=== PATIENT | male | born 1965 | race Caucasian/White ===

== ENCOUNTER → 2017-12-30 13:45 | Outpatient (REF) | payer SELFPAY | LOC: OM 13:45 | PROVIDERS: PCP Family Medicine; Visit Provider Nurse Practitioner Family | DX: Z02.79 Encounter for issue of other medical certificate (principal) ==

== ENCOUNTER → 2017-12-31 08:30 | Outpatient (CLI) | payer BC, SELFPAY ==
[2017-12-31 09:04] LABS: Absolute Basophil Count 0.02 k/cumm (0.0-0.2); Absolute Eosinophil Count 0.46 k/cumm (0.0-0.7); Absolute Lymphocyte Count 1.47 k/cumm (1.2-3.4); Absolute Monocyte Count 0.38 k/cumm (0.11-0.7); Absolute Neutrophil Count 2.79 k/cumm (1.2-6.7); Basophils % 0.4; HCT 40.7 % (40.0-50.0); HGB 14.1 g/dL (13.5-17.5); Lymphocytes % 28.7; Mean Corp. HGB Concentration 34.6 g/dL (32.0-36.0); Mean Corpuscular Hemoglobin 30.9 pg (27.0-33.0); Mean Corpuscular Volume 89.1 fL (80-95); Mean Platelet Volume 10.7 fL (8.0-11.0); Monocytes % 7.4; Neutrophils % 54.5; Platelet Count 191 x1000/uL (130-400); RBC 4.57 m/cumm (4.50-6.00); RBC Distribution Width 12.5 % (11.8-14.1); White Blood Cell Count 5.12 k/cumm (4.4-10.8)
[2017-12-31 09:55] LABS: ESR 15 MM/HR (1-20)
[2017-12-31 10:00] LABS: ALT 33 U/L (12-78); AST 23 U/L (15-37); Albumin 4.5 g/dL (3.4-5.0); Alkaline Phosphatase 66 U/L (46-116); Anion Gap 8.7 mmol/L (3-11); BUN 15 mg/dL (7-18); Bilirubin, Total 1.6 mg/dL (0.2-1.0); C-Reactive Protein 0.15 mg/dL (0.0-0.3); CO2 27.3 mmol/L (21.0-32.0); Calcium 9.3 mg/dL (8.5-10.1); Chloride 102 mmol/L (98-107); Glucose 99 mg/dL (70-100); Potassium 3.8 mmol/L (3.5-5.1); Sodium 138 mmol/L (136-145); Total Protein 7.5 g/dL (6.4-8.2)
== END ==
PROVIDERS: PCP Family Medicine; Visit Provider Surgery
DX: K57.33 Diverticulitis of large intestine without perforation or abscess with bleeding (principal)
CPT/HCPCS: 36415; 80053; 85652; 85025; 86140

== ENCOUNTER → 2018-01-10 03:14 | Outpatient (CLI) | payer BC, SELFPAY ==
--- NOTE | 2018-01-10 14:03 | DI.REPORT_ITS ---
SYMPTOMS/DIAGNOSIS: DIVERTICULITIS OF LARGE INTESTINE WO PERFORATION OR BLEEDING, K57.33, PERSISTENT PAIN ON ORAL ANTIBIOTICS CT OF THE ABDOMEN AND PELVIS: Comparison is made with October,. Images were performed from the lung bases through the ischial tuberosities after IV and oral contrast. Previous exam showed diverticulitis involving the descending colon. Multiple diverticula are again demonstrated. The previously noted inflammation has resolved. There is no evidence of abscess, free air or free fluid. There is no residual wall thickening. There is no abnormal bowel distention. The appendix appears normal. The lung bases are clear. The heart size is normal. The liver, gallbladder, spleen, pancreas, adrenals, kidneys and bladder appear normal. The aorta is normal in diameter. There are degenerative disc changes at L3-4 through L5-S1. IMPRESSION: Resolution of previously noted diverticulitis. No new abnormalities are seen.
[2018-01-10] MEDS: Breeza Beverage 473 ML BTL PO ×2 (14:39→14:40)
[2018-01-10] MEDS: Omnipaque 350 MG/ML 50 ML BTL PO (14:40)
[2018-01-10] MEDS: Omnipaque 350 MG/ML 100 ML BTL IJ (16:07)
== END ==
PROVIDERS: PCP Family Medicine; Visit Provider Surgery
DX: K57.33 Diverticulitis of large intestine without perforation or abscess with bleeding (principal); K57.30 Diverticulosis of large intestine without perforation or abscess without bleeding
CPT/HCPCS: 80053; 85652; 74177; 85025; 86140; J3490; Q9967

== ENCOUNTER 2019-08-05 08:46 | Day surgery (SDC) | payer BC, SELFPAY ==
--- NOTE | 2019-08-05 07:46 | W.PM.ENDDOP ---
Date of service: 08/05/19 Time of Service: : Endoscopy Report DATE OF PROCEDURE: 08/05/19 PRE-OP DIAGNOSIS: Colon Cancer Screening and Melena POST-OP DIAGNOSIS: other (Gastritis, esophagitis, hiatal hernia, colon polyps and diverticulosis) PROCEDURE: 1. EGD with biopsies 2. Colonoscopy with polypectomy SURGEON: Camelia Herrera ANESTHESIA: MAC (General/ ASA 2/Gabrielle Isidro, ZAYDA ) ESTIMATED BLOOD LOSS: 3 PATHOLOGY: other (Duodenal bx, gastric bx, esophagus bx, transverse polyp x2, ascending polyp, descending polyp x2, sigmoid polyp x2) COMPLICATIONS: None DISPOSITION: observation INDICATIONS: Mr. Morgan is a pleasant 54-year-old gentleman who comes to the office today to discuss a screening colonoscopy. He also tells me that about 6 weeks ago he developed abdominal pain with diarrhea. At that time the stools were black. He thought he was having another diverticulitis attack and started a low fiber diet. He also stopped drinking at that time. He was drinking 3 or 4 beers a night and for the last 4 weeks he has drank 1 beer a week. The melena has now resolved as has the diarrhea. He had a normal bowel movement this morning. He denies epigastric pain. He denies any unintentional weight loss. He is never had an upper endoscopy or a colonoscopy PREP: Miralax/Dulcolax PROCEDURE START TIME: : PROCEDURE END TIME: 11:58 FINDINGS: Inflammation of the stomach, esophagus. HIatal hernia 7 small polyps Diverticulosis PROCEDURE DESCRIPTION: After informed consent was obtained the patient was take to the procedure room and placed in a supine position. Monitors were applied and a time out was done. The patients name, date of , procedure type, allergies to medications and metal in their body was reviewed. A bite block was placed and the patient was sedated. Once sedated and comfortable the gastroscope was advanced through the oropharynx which was grossly normal into the esophagus. The proximal and mid-esophagus were normal. In the distal esophagus there was mild inflammation noted. The scope was advanced into the stomach and through the pylorus into the 3rd portion of the duodenum. The duodenum was noted to have mild inflammation in the 1st portion. Biopsies were done in the small bowel. The scope was retracted back into the stomach. Moderate inflammation was noted. Biopsies were done to rule out H. pylori. There were no ulcers. The scope was retro-flexed. The cardia and fundus were noted to be normal. There was a small hiatal hernia noted. The scope was retracted back into the esophagus and biopsies were done of the GE junction to rule out Garcia's. The Z line was irregular in 2 areas. The GE junction was at 42 cm. While the patient was still sedated they were placed in a left decubitous position. A rectal exam was done. External exam was normal. Internal exam revealed a normal sphincter tone and no palpable masses. The prostate felt normal. The scope was then introduced and retro-flexed. No internal hemorrhoids were identified. The scope was then advanced to the cecum without difficulty. The ileocecal valve and appendiceal orifice were identified. The prep was good. The scope was then slowly retracted over >6 minutes back into the rectum. Biopsies were done with cold forceps in the Ascending colon x1, transverse colon x2, descedning colon x2, and sigmoid colon x2. There was moderate diverticulosis noted in the descending and sigmoid colon. The scope was removed and the patient was woken up and taken back to Same day surgery in stable condition. Fotos were taken throughout the upper and lower endoscopy, unfortunately the pictures from the colonoscopy were lost when the printer stopped working. The patient tolerated the procedure well and there were no immediate complications. Follow up: 3-5 years
--- NOTE | 2019-08-05 07:47 | W.PM.DSUDISC ---
Discharge Plan Disposition Patient Disposition: HOME Condition: Good Discharge Details Reason For Visit: Colon Cancer Screening/ melena Attending Provider: Camelia Herrera Primary Care Provider: Mak Mcghee Home Meds and New Rx's Prescriptions: Continued omeprazole 20 MG capsule,delayed release(DR/EC) 40 mg PO DAILY RF: 0 Discontinued bisacodyl [Dulcolax (bisacodyl)] 5 mg tablet,delayed release (DR/EC) 5 mg PO ONCE Qty: 4 RF: 0 polyethylene glycol 3350 17 gram powder in packet 255 g PO DAILY Qty: 15 RF: 0 Discharge Instructions Instructions: Diet for Stomach Ulcers and Gastritis (GEN), Gastritis (DC), Hiatal Hernia (DC), Colorectal Polyps (DC), Diverticulosis (DC) Additional Instructions: Findings: mild inflammation in the small bowel, stomach and esophagus Small Hiatal hernia Multiple polyps Diverticulosis Follow up: 3-5 years for the next colonoscopy Please call if you develop: fevers >101.5 Nausea or Vomiting Abdominal pain that is not transient DAY SURGERY UNIT POST ENDOSCOPY INSTRUCTIONS 1. Because there will be medication in your system for the next 24 hours, you may feel a little sleepy. Your coordination will be affected. Therefore: a. Do not drive or operate dangerous equipment for 24 hours. b. Do not drink alcohol beverages for 24 hours (not even beer). c. Plan to go home and rest for the day. 2. Generally there are no restrictions on your activity after a day or so has gone by, but you may feel a bit fatigued for a few days. 3 After you arrive home you may have a light meal and return to a normal diet as you can tolerate it without feeling sick to your stomach. 4. After surgery, you may feel pain or discomfort. This should be only transient, but if it persists please contact your doctor. 5. If there are any questions regarding the findings of your procedure, please feel free to contact your doctor. 6. If you are unable to contact your doctor with a problem, contact the hospital at [phone]. 7. Continue all your regular medications unless directed otherwise. I understand the above instructions and have no questions. Signature of Patient or Responsible Adult Escort Date/Time Name of Responsible Adult Escort Signature of Nurse Date/Time Activity:: Activity as Tolerated Diet:: low acid Discharge Orders Discharge Orders: Discharge Order (Routine); Ordered 08/05/19 Ordered By: Camelia Herrera DS: Diagnosis Discharge Diagnosis (1) Gastritis and duodenitis: Status: Acute (2) Esophagitis: Status: Acute (3) Hiatal hernia: Status: Chronic (4) Diverticulosis: Status: Acute (5) Colorectal polyps: Status: Acute
[2019-08-05 08:59] VITALS: BP 124/74; PULSE 55; RESP 16; TEMP 36.6; O2SAT 95
[2019-08-05] MEDS: Lactated Ringers 1,000 ML 80 ML IV ×2 (09:19→12:03)
--- NOTE | 2019-08-05 11:20 | BOWEL_PTH ---
PATIENT: Kristian Morgan LOC: [facility] U#:[id number] AGE/SX: 54/M ROOM: RE08/05/[address]: Camelia Herrera MD : [id number] BED: DIS: 08/05/2019 SPEC #: [id number] RECD: 08/05/19 12:44 STATUS: OZIEL REQ #: [id number] RAJNI: 08/05/19 11:[address]: Camelia Herrera DEPT: Surgical Specimen RECD BY: Mago He ENTERED: 08/05/19 12:49 SP TYPE: Bowel OTHR DR: Mak Mcghee Tissues: 1 - BIOPSY BOWEL 2 - STOMACH BIOPSY 3 - ESOPHAGUS BIOPSY 4 - BIOPSY BOWEL 5 - BIOPSY BOWEL 6 - BIOPSY BOWEL 7 - BIOPSY BOWEL 8 - BIOPSY BOWEL Procedures: GROSS AND MICRO LEVEL 4 Comments: [id number]
[2019-08-05 12:35] VITALS: BP 138/66; PULSE 69; RESP 16; TEMP 36.4; O2SAT 96
== END 2019-08-05 13:09 | disposition home or self-care (01) ==
LOC: SUR 08:46
PROVIDERS: PCP Family Medicine; Visit Provider Surgery
PROC: (CPT 45380; principal; 2019-08-05 10:15)
DX: Z12.11 Encounter for screening for malignant neoplasm of colon (principal); K92.1 Melena; D12.2 Benign neoplasm of ascending colon; D12.3 Benign neoplasm of transverse colon; D12.4 Benign neoplasm of descending colon; K63.5 Polyp of colon; K57.30 Diverticulosis of large intestine without perforation or abscess without bleeding; K21.0 Gastro-esophageal reflux disease with esophagitis; K31.89 Other diseases of stomach and duodenum; F10.10 Alcohol abuse, uncomplicated; K44.9 Diaphragmatic hernia without obstruction or gangrene
CPT/HCPCS: 45380; 43239; 88305; J2001; J2704

== ENCOUNTER 2020-03-23 18:57 | Outpatient (REF) | payer BC, SELFPAY ==
[2020-03-29 03:19] LABS: Patient Race White; SARS-CoV-2 RNA Undetected (Undetected); SARS-CoV-2 Specimen Source Nasal
== END 2020-03-23 19:17 ==
LOC: NCHCN 18:57
PROVIDERS: PCP Family Medicine; Visit Provider Nurse Practitioner Family
DX: R05 Cough (principal)
CPT/HCPCS: U0003

== ENCOUNTER 2021-10-24 08:05 | Emergency (ER) | payer BC, SELFPAY ==
[2021-10-24] VITALS (45 sets, daily range): BP systolic 118–145; BP diastolic 64–81; PULSE 50–67; RESP 9–23; TEMP 36.5–36.7; O2SAT 96–98
--- NOTE | 2021-10-24 08:00 | RT.EKG_ITS ---
APPROVED REPORT Exam: Resting ECG Reason for Exam: chest pain Patient Location: E HR:56 bpm ECG Measurements Heart Rate 56 AXIS KS 173 P 29 QRSd 94 QRS 38 QT 424 T 42 QTc 408 Conclusion Sinus bradycardia...rate< 60
--- NOTE | 2021-10-24 08:00 | DI.RAD_ITS ---
Exam(s) XR CHEST 2V PA LATERAL EXAM: XR CHEST 2V PA LATERAL CLINICAL HISTORY: Chest Pain. TECHNIQUE: 2D digital imaging was performed. COMPARISON: No exams were available for comparison FINDINGS: 2 views: Heart size is normal. The mediastinum is not widened. Lungs are clear. No infiltrates nor pleural effusions. IMPRESSION: No acute pulmonary findings. DATA REPOSITORY: RADIATION DOSE DELIVERED:
[2021-10-24] MEDS: Aspirin 81 MG CHEW 324 MG CH (08:16)
--- NOTE | 2021-10-24 08:27 | ED.GENADUL_ITS ---
Discharge Plan Disposition Patient Disposition: HOME Condition: Stable Discharge Details Clinical Impression: Chest pain, Cocaine abuse Primary Care Provider: Mak Mcghee ED Provider: Daisy Hernández Home Meds and New Rx's Prescriptions: Continued omeprazole 40 mg capsule,delayed release(DR/EC) 40 mg PO DAILY Qty: 90 3RF No Action amoxicillin 500 mg capsule 2 cap PO BID Label Comments: TAKE 2 CAPSULES BY MOUTH NOW THEN 1 CAPSULE FOUR TIMES DAILY UNTIL GONE Discharge Instructions Instructions: Chest Pain (ED) Additional Instructions: Please take an aspirin a baby aspirin daily. Follow-up with cardiology. An outpatient stress test will be ordered. Please return to the ER for any r ecurrent chest pain or concerns. Please stop doing cocaine I do believe that this is the cause of your chest pains. Follow up with primary care provider in 3-5 days. Return to ED sooner if any worsening or concerns. Increase oral fluids. Please follow-up with Dr. Avendaño police liaison Referrals: Reta Avendaño MD [ [facility] STAFF PHYSICIAN] - 2 weeks Mak Mcghee [Primary Care Provider] - 2 weeks Discharge Data Discharge Date/Time-TO BE ENTERED AT DEPARTURE: 10/24/21 13:10 Medical Decision Making 56-year-old male presents to the ER with chief complaint chest pain intermittent which began around 630 this morning and lasted until the ride here. Upon initial presentation the pain has stopped. He reports radiation up into his jaw and diaphoresis. Chest pain is nonreproducible with palpation. He also endorses cocaine use last on Saturday. He also reports cocaine use a week ago. He also smokes marijuana. He does have past medical history of abnormal stress test and echocardiogram approximately 8 to 9 years ago. Other past medical history includes alcohol dependence, Garcia's esophagus, anxiety, depression, low back pain, diverticulitis, GERD, hiatal hernia. EKG was reviewed by Dr. Alberto Garibay ER attending, please see his official report. Old EKG is available for review. At this time cardiac work-up ordered including serial troponins, chest x-ray, 324 mg of aspirin. Initial work-up largely within normal limits, CBC patient is slightly anemic hemoglobin 13.0 hematocrit 38.1 bilirubin slightly elevated at 1.2, urine drug screen positive for cocaine and THC. Serial troponins within normal limits. Patient has not complained of chest pain throughout the duration of his stay here. 1252: passenger coach driver on the phone at this time to speak with patient. Outpatient stress test ordered and cardiology follow up referral given. Patient remained hemodynamically stable throughout the rest stay. Discussed strict return instructions and follow-up care. This text was generated using [employer] system, please disregard any oddities of phrase or misspellings. Medical Records Medical records reviewed: Yes I reviewed the patient's medical records. HPI General Mode of arrival: ambulatory . Date/Time Provider Initiated Documentation: 10/24/21 08:06 . Limitations to Documentation: no limitations . Information obtained by: patient, family, RN notes reviewed and old records reviewed . HPI Narrative: 56-year-old male presents to the ER with chief complaint chest pain intermittent which began around 630 this morning and lasted until the ride here. Upon initial presentation the pain has stopped. He reports radiation up into his jaw and diaphoresis. Chest pain is nonreproducible with palpation. He also endorses cocaine use last on Saturday. He also reports cocaine use a week ago. He also smokes marijuana. He does have past medical history of abnormal stress test and echocardiogram approximately 8 to 9 years ago. Other past medical history includes alcohol dependence, Garcia's esophagus, anxiety, depression, low back pain, diverticulitis, GERD, hiatal hernia. Related Data Home Medications Medication Instructions Recorded Confirmed omeprazole 40 mg capsule,delayed 40 mg PO DAILY #90 caps 08/05/19 10/24/21 release amoxicillin 500 mg capsule 2 cap PO BID 10/24/21 10/24/21 Previous Rx's Medication Instructions Recorded omeprazole 40 mg capsule,delayed 40 mg PO DAILY #90 caps 08/05/19 release Allergies Allergy/AdvReac Type Severity Reaction Status Date / Time Opioids - Morphine Analogues Allergy Unverified 10/24/21 08:11 General Stated Complaint: Chest Pain URSULA: 3 Review of Systems All systems reviewed & are unremarkable except as noted in HPI and below Cardiovascular Cardiovascular: Reports as per HPI, Reports chest pain, Reports diaphoresis and Reports dyspnea Respiratory Respiratory: Reports dyspnea Psychiatric Psychiatric: Reports other (Substance abuse) [facility] All Active Problems Chest pain (Acute) Cocaine abuse (Acute) Herniated disc (Acute) Medical History Alcohol dependence Atypical chest pain Barretts esophagus (~07/2019) Chronic anxiety Chronic depression Chronic low back pain Cocaine abuse in remission Colorectal polyps Diverticulitis Diverticulosis Esophagitis Gastritis and duodenitis GERD (gastroesophageal reflux disease) Hiatal hernia Obesity Pain, joint, shoulder, right Rectal bleeding Surgical History H/O esophagogastroduodenoscopy (~08/05/19) History of shoulder surgery Rotator cuff repair right shoulder. S/P colonoscopy (~08/05/19) Social History Smoking/Tobacco Use Status: Never Smoking risk assessment performed?: Yes Alcohol Intake: current Alcohol Intake frequency: a few times a month Alcohol type: beer Details: Decreased his drinking 4 weeks ago from 3-4 beers a night to 1 beer once wk Drug use: Occasionally Substance use type: marijuana and crack/cocaine Household members: spouse Housing: house current occupation: self employed Do you feel safe at home: Yes Do you feel safe in your relationship?: No Exam Narrative Exam Narrative: Constitutional: Alert and oriented x3. Appears stated age. Normal body habitus. Slightly diaphoretic. Head: Normocephalic, no trauma. Eyes: Pupils PERRL, Red reflex noted, EOM's intact. Eyelids symmetrical without lesions, discharge, or swelling. ENT: Bilateral TM's WNL, External ear normal to inspection, no mastoid TTP, swelling, or erythema, Nasal turbinates WNL, no nasal discharge. Normal dentition, Posterior pharynx WNL, no exudate. Chest: RRR, Normal S1, S2, distal pulses intact. Resp: Lungs clear to auscultation bilaterally, no wheezes, rales, or rhonchi. Abdomen: Soft, non-distended, Normoactive bowel sounds all 4 quads. Musculoskeletal: Normal gait, 5/5 strength to all four extremities. Skin: No suspicious rashes or lesions. Capillary refill less than 2 sec. Neurologic: Cranial nerves II-XII intact. Alert and oriented x 3. Motor: No deficits noted. Sensory: Intact bilaterally all 4 extremities. Reflexes: DTR's intact bilaterally.. Hematologic/Lymphatic: No ecchymosis, no lymphadenopathy. Course Vital Signs Vital signs: Vital Signs Temperature 36.5 C 10/24/21 08:08 Pulse 63 10/24/21 08:08 Respiratory Rate 16 10/24/21 08:08 Blood Pressure 138/71 10/24/21 08:08 Pulse Oximetry 97 10/24/21 08:08 Temperature 36.5 C 10/24/21 08:08 Temperature Source Temporal Artery Scan 10/24/21 08:08 Pulse 63 10/24/21 08:08 Respiratory Rate 14 10/24/21 08:18 Respiratory Effort 10/24/21 08:18 Respiratory Depth Normal 10/24/21 08:18 Respiratory Pattern Normal 10/24/21 08:18 Blood Pressure 138/71 10/24/21 08:08 Blood Pressure Position Supine 10/24/21 08:08 Pulse Oximetry 97 10/24/21 08:08 Oxygen Delivery Method Room Air 10/24/21 08:08 Oxygen Flow Rate 0 10/24/21 08:08 Pain Level 10 10/24/21 08:08
[2021-10-24 08:28] LABS: Abs Immature Grans 0.02 10^3/uL (0.0-0.06); Absolute Basophil Count 0.04 10^3/uL (0.0-0.2); Absolute Eosinophil Count 0.29 10^3/uL (0.0-0.7); Absolute Lymphocyte Count 2.09 10^3/uL (1.2-3.4); Absolute Monocyte Count 0.41 10^3/uL (0.1-0.8); Absolute Neutrophil Count 3.84 10^3/uL (1.2-6.7); Basophils % 0.6; Eosinophils % 4.3; HCT 38.1 % (40.0-50.0); Immature Grans % 0.3; Lymphocytes % 31.2; MCH 30.4 pg (27.0-33.0); MCHC 34.1 % (32.0-36.0); MCV 89 fL (80-95); MPV 10.7 fL (8.0-11.0); Monocytes % 6.1; Neutrophils % 57.5; Platelet Count 206 10^3/uL (130-400); RBC 4.28 10^6/uL (4.36-5.78); RDW 12.3 % (11.8-14.1); RDW-SD 39.9 fL; WBC 6.69 10^3/uL (4.4-10.8)
[2021-10-24 09:00] LABS: ALT 31 U/L (16-63); AST 24 U/L (15-37); Albumin 4.3 g/dL (3.4-5.0); Alkaline Phosphatase 72 U/L (46-116); Anion Gap 7.5 mmol/L (3-11); BUN 11 mg/dL (7-18); Bilirubin, Total 1.2 mg/dL (0.2-1.0); CO2 30.5 mmol/L (21.0-32.0); Calcium 9.3 mg/dL (8.5-10.1); Chloride 103 mmol/L (98-107); Glucose 98 mg/dL (74-106); Potassium 3.7 mmol/L (3.5-5.1); Sodium 141 mmol/L (136-145); Total Protein 7.7 g/dL (6.4-8.2); Troponin I < 50 ng/L (<or=60)
[2021-10-24 09:43] LABS: *AMPHETAMINES SCREEN URINE Negative (Negative); *BENZODIAZEPINES SCREEN URINE Negative (Negative); Cannabinoids THC Positive (Negative); Cocaine Screen,Urine Positive (Negative); OPIATES URINE SCREEN Negative (Negative)
[2021-10-24 09:44] LABS: *BARBITURATES SCREEN URINE Negative (Negative); Tricyclic Antidepressants Negative (Negative)
[2021-10-24 12:29] LABS: Troponin I < 50 ng/L (<or=60)
--- NOTE | 2021-10-24 13:13 | NUR.NOTE ---
Nursing Note: Request for Regular Exercise Treadmill stress test for chest pain/coronary artery disease faxed to [facility]. [facility]
== END 2021-10-24 13:10 | disposition home or self-care (01) ==
PROVIDERS: Emergency Provider Registered Nurse Emergency; PCP Family Medicine
DX: R07.9 Chest pain, unspecified (principal); F14.10 Cocaine abuse, uncomplicated
CPT/HCPCS: 36415; 80053; 80307; 93005; 99284; 71046; 83735; 84484; 85025; 93010

== ENCOUNTER 2021-10-26 01:03 | Outpatient (CLI) | payer BC, SELFPAY ==
--- NOTE | 2021-10-26 09:00 | ETT_ITS ---
APPROVED REPORT Exam: Exercise Treadmill Patient Location: Out-Patient Room/Bed: Stress Nurse: Mari Natarajan RN Ordering Provider:FELIX ALEXANDRE, Contact Number: BMI: 31.19 Baseline Rhythm: Sinus Bradycardia Indications: Chest Pain, CAD Medical History Medical History: Alcohol dependence, Barretts esophagus, chronic anxiety, chronic depression, coaine abuse in remission, GERD, obesity Cardiac Medications: Omeprazole Allergies: Opiods- morphine analogues Cardiac Risk Factors: smoking (marijuana), obesity Previous Cardiac Procedures: None Pretest Chest Pain Characteristics: None Exercise History: Sedentary Physical Disabilities: None Lung Sounds: Clear Heart Sounds: Normal Stress Test Details Test: Exercise stress testing was performed using a Tirso protocol. Rest Stress HR Resting HR Supine: 56 bpm Max Heart Rate (APMHR): 162 bpm Resting HR Standin bpm Target HR (85% APMHR): 137 bpm Max HR Achieved: 141 bpm % of APMHR: 87 Recovery HR: 77 bpm HR response to stress: Normal HR response to stress BP Resting BP Supine: 120/76 mmHg Resting BP Standin/72 mmHg Max BP: 178/80 mmHg Recovery BP: 124/76 mmHg BP response to stress: Normal blood pressure response to stress. ECG Resting ECG: Sinus Bradycardia Ectopy: None Stress ECG: Sinus Tachycardia ST Change: No significant ST segment changes noted Arrhythmia: Rare PAC Recovery ECG: Sinus Rhythm Recovery ST Change: No significant ST segment changes noted Recovery Arrhythmia: None Clinical Reason for Termination: Fatigue, Knee pain Stress Symptoms: None Exercise duration: 8 min58 sec Highest Stage Reached: Stage 2: 2.5 mph at 12% grade. Exercise capacity: 10.16 METs Angina Score: None Barahona Treadmill Score: 8.4 Rate Pressure Product: [id number] Stress ECG Conclusion 1. The resting electrocardiogram was within normal limits 2. Patient exercised on the Tirso protocol and completed a workload of 10.16 METS 3. Normal heart rate and blood pressure response to exercise. The patient achieved 87% predicted hea rt rate for age 4. There was no electrocardiographic evidence of myocardial ischemia 5. There were no dysrhythmias Barahona Treadmill Score is 8.4 which is Low risk. Stress Test Summary STAGE Time (mins) Speed (mph) Grade (%) HR BP SYMPTOMS METS Supine 56 120/76 Standing 63 122/72 1 3 1.7 10 93 132/68 4.6 2 6 2.5 12 115 154/68 7 3 9 3.4 14 141 178/80 10.2 1 min recovery 117 178/70 3 min recovery 71 164/74 6 min recovery 77 124/76
== END 2021-10-26 01:23 ==
LOC: DI 01:04
PROVIDERS: PCP Family Medicine; Visit Provider Registered Nurse Emergency
DX: R00.1 Bradycardia, unspecified (principal)
CPT/HCPCS: 93017

== ENCOUNTER 2022-01-17 18:00 | Observation (INO) | payer BC, SELFPAY ==
[2022-01-17] VITALS (11 sets, daily range): BP systolic 116–129; BP diastolic 68–78; PULSE 52–64; RESP 16–20; TEMP 36.6; O2SAT 93–98
--- NOTE | 2022-01-17 18:00 | RT.EKG_ITS ---
APPROVED REPORT Exam: Resting ECG Reason for Exam: chest pain Patient Location: E HR:57 bpm ECG Measurements Heart Rate 57 AXIS DE 168 P 17 QRSd 90 QRS 37 QT 403 T 39 QTc 393 Conclusion Sinus bradycardia...rate< 60 Physician: no stemi, no significant st elevation
--- NOTE | 2022-01-17 18:15 | DI.CT_ITS ---
Exam(s) CT CHEST PE CTA EXAM: CT CHEST PE CTA CLINICAL HISTORY: chest pain, diaphoresis, shortness of breath. TECHNIQUE: Imaging Protocol: Axial CT angiography was performed with multi-slice acquisition and mu lti-planar and/or 3D reconstructions. CONTRAST MATERIAL: Intravenous: Omnipaque 350 Contrast volume:structured data in ml FINDINGS: CT angiography of the chest was performed with intravenous infusion of 85 cc of Omnipaque 350. The lungs are clear. No pleural effusion. Tracheobronchial tree appears intact. No evidence of pulmonary embolic disease. Thoracic aorta is of normal diameter, no thoracic aortic an eurysm or dissection, major branch vessels appear intact. No mediastinal or hilar adenopathy. Images obtained through the upper abdomen show unremarkable appearance of the visualized portions of the liver, spleen, pancreas, adrenals, and kidneys. IMPRESSION: Negative CT angiogram of the chest. No evidence of pulmonary embolic disease. RADIATION DOSE DELIVERED: 499.2mGy.cm Total DLP 499.2mGy.cm Total DLP !Error CTDIvol DATA REPOSITORY: All CT scans at this facility are submitted to the National Radiology Data Registry (NRDR) Dose Index Registry (DIR) with the [employer] (ACR). RADIATION OPTIMIZATION: All CT scans at this facility use at least one of these dose optimization te chniques: automated exposure control; mA and/or kV adjustment per patient size (includes targeted exa ms where dose is matched to clinical indication); or iterative reconstruction.
--- NOTE | 2022-01-17 18:15 | RT.EKG_ITS ---
APPROVED REPORT Exam: Resting ECG Reason for Exam: chest pain Patient Location: E HR:51 bpm ECG Measurements Heart Rate 51 AXIS MS 175 P 32 QRSd 92 QRS 32 QT 414 T 30 QTc 383 Conclusion Sinus bradycardia...rate< 60
[2022-01-17 18:40] LABS: Abs Immature Grans 0.01 10^3/uL (0.0-0.06); Absolute Basophil Count 0.04 10^3/uL (0.0-0.2); Absolute Eosinophil Count 0.26 10^3/uL (0.0-0.7); Absolute Lymphocyte Count 1.85 10^3/uL (1.2-3.4); Absolute Monocyte Count 0.36 10^3/uL (0.1-0.8); Absolute Neutrophil Count 2.68 10^3/uL (1.2-6.7); Basophils % 0.8; HCT 40.3 % (40.0-50.0); HGB 14.1 g/dL (13.5-17.5); Immature Grans % 0.2; Lymphocytes % 35.6; MCH 30.3 pg (27.0-33.0); MCV 87 fL (80-95); MPV 11.3 fL (8.0-11.0); Monocytes % 6.9; Neutrophils % 51.5; Platelet Count 189 10^3/uL (130-400); RBC 4.65 10^6/uL (4.36-5.78); RDW 11.9 % (11.8-14.1); RDW-SD 37.8 fL
[2022-01-17] MEDS: nitroGLYcerin 0.4 MG TAB SL (18:45)
[2022-01-17] MEDS: Aspirin 81 MG CHEW 324 MG CH (18:45)
[2022-01-17 19:07] LABS: NT-proBNP 6 pg/mL (<300)
[2022-01-17 19:08] LABS: Magnesium 2.1 mg/dL (1.8-2.4); Troponin I < 50 ng/L (<or=60)
[2022-01-17 19:18] LABS: Anion Gap 13.7 mmol/L (3-11); CO2 25.3 mmol/L (21.0-32.0); Chloride 103 mmol/L (98-107); Potassium 3.8 mmol/L (3.5-5.1); Sodium 142 mmol/L (136-145)
[2022-01-17 19:19] LABS: BUN 18 mg/dL (7-18); CREATININE 1.2 mg/dL (0.70-1.30); Calcium 9.3 mg/dL (8.5-10.1); Glucose 111 mg/dL (74-106)
[2022-01-17 19:25] LABS: Albumin 4.3 g/dL (3.4-5.0); Bilirubin, Total 0.7 mg/dL (0.2-1.0); Total Protein 7.9 g/dL (6.4-8.2)
[2022-01-17 19:26] LABS: ALT 37 U/L (16-63); AST 26 U/L (15-37); Alkaline Phosphatase 71 U/L (46-116)
[2022-01-17] MEDS: Omnipaque 350 MG/ML 100 ML BTL IJ (19:42)
--- NOTE | 2022-01-17 20:28 | DI.VRAD_ITS ---
PROCEDURE INFORMATION: Exam: CTA Chest With Contrast Exam date and time: 01/17/2022 7:31 PM Age: 56 years old Clinical indication: Other: Chest pain, diaphoresis, shortness of breath TECHNIQUE: Imaging protocol: Computed tomographic angiography of the chest with contrast. 3D rendering (Not supervised by radiologist): MIP and/or 3D reconstructed images were created by the technologist. Contrast material: 350; Contrast volume: 100 ml; Contrast route: INTRAVENOUS (IV); COMPARISON: CR XR CHEST 2V PA LATERAL 10/24/2021 8:52 AM FINDINGS: Pulmonary arteries: No pulmonary embolism identified. Aorta: No thoracic aortic aneurysm or dissection. Thyroid: Thyroid gland partially excluded from view but grossly unremarkable through its visualized portion. Lungs: Minimal dependent atelectasis. No pulmonary consolidation. Pleural spaces: No pleural effusion or pneumothorax. Heart: Normal sized heart. Lymph nodes: No pathologically enlarged mediastinal or hilar lymph nodes. Liver: Probable fatty infiltration of the liver, difficult to confidently diagnose by CT imaging after administration of intravenous contrast. Bones/joints: Lower ribs partially excluded from view and incompletely evaluated. Otherwise, no acute fracture seen among the bones of the chest. Spinal degenerative change with discogenic degeneration and anterior osteophytes at several levels. Soft tissues: No gross soft tissue mass or fluid collection seen in the chest wall. IMPRESSION: 1. No active disease is seen in the chest. 2. Probable fatty infiltration of the liver, difficult to confidently diagnose by CT imaging after administration of intravenous contrast. Dictated and Authenticated by: Frank Clark MD. Ordering:JIGAR Mercedes MD
[2022-01-17 21:26] LABS: Source Nasal/Nares
--- NOTE | 2022-01-17 21:27 | HPE_ITS ---
Date of service: 01/17/22 Time of Service: 21:27 Assessment and Plan Assessment and plan (1) Atypical chest pain: Start date: 01/17/22 Assessment and plan: This is a 56-year-old gentleman who does not smoke tobacco and is active as a cho who presents with recurrent chest pain which is left lower ribs and lower sternal area radiating into the jawline usually beginning in the secondary school teacher librarian around 3 AM and stuttering throughout the day when he has the secondary school teacher librarian chest pain. He did present with associated symptoms of diaphoresis and dyspnea which is not usually associated with his pain. It did respond to the question sublingually. He has had a negative stress test recently but no other evaluations. It is not associated with meals or activity and always began in secondary school teacher librarian. He is on a PPI. He does use cocaine but claims this is been no recent use and he does smoke marijuana. He has not had his gallbladder evaluated with no previous cholecystectomy. He was observed with trending troponins with echocardiogram ordered for the morning and should consider EGD and ultrasound of gallbladder and biliary system to rule out GI source of his atypical pain. Also he may need to proceed to cardiac catheterization especially with associated symptoms and response to nitroglycerin sublingually suggesting possible right mainstem coronary artery disease with his GI symptoms. Lipids should be checked in the morning. (2) Chronic depression: Assessment and plan: Chronic on medical therapy and not coping well presently. He does self treat with marijuana and occasionally cocaine. (3) Cocaine abuse in remission: Assessment and plan: Intermittent use of snorting cocaine with patient having [facility] for drug screen. (4) GERD (gastroesophageal reflux disease): Assessment and plan: On PPI with diagnosis of Garcia's esophagus me that he may have had studies in the past with patient denies any recent EGD. This should be reevaluated. Qualifiers: Esophagitis presence: with esophagitis History of Present Illness History of Present Illness Chief Complaint: Substernal chest pain radiating to jaw Narrative: This 56-year-old male with history of GERD presents with intermittent and worsening chest pain since October when he was initially assessed.? He had a stress test that was ordered outpatient on 26 October that was reportedly negative.? He presents today secondary to recurrent pain that is worsening throughout the day today.? It awoke him from sleep this morning at approximately 2:45 in the morning.? This was followed by numerous episodes 1 that was exertional and he was playing with his grandson this afternoon.? 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 The pain today was constant and radiating into his jaw mostly on the right side but the pain always occurring in the left lower rib area and not retrosternal. It often does radiate into his jaw. With presen tation he was short of breath and diaphoretic which is new from previous episodes but had no nausea. His chest pain always awakens him in the middle of the night and when that occurs he has started pain throughout the day. He did respond to nitroglycerin sublingually when reported to the ED this visit. He had no EKG changes and negative troponins in the ED. He has not reportedly used cocaine for the past 2 months intermittently using cocaine and smoking marijuana. The patient does snort cocaine.? He states that he does not use this cocaine regularly.? He denies any IV drug abuse.? He does not smoke tobacco.? He denies any family history of early coronary artery disease.? Denies history of hypertension, hyperlipidemia and is not overweight. He does drive a motorcycle often has cramps in his legs when driving long distances. As stated he is a cho and very physically active daily with no association with activity and his chest pain. He also has finders no association between eating and his discomfort. He has not had any evaluation with EGD or gallbladder evaluation. He does want an echocardiogram which has been ordered and wants to avoid cardiac catheterization though this may be necessary. He was admitted for observation and trending of his troponins. He was chest pain-free when evaluated on the medical floor. Review of Systems Narrative: 13 point review of systems otherwise unrevealing or stable. Patient does have chronic anxiety and mood disorder. He denies significant alcohol use. [facility] All Active Problems Chest pain (Acute) Herniated disc (Acute) Medical History Alcohol dependence Atypical chest pain Barretts esophagus (~07/2019) Chronic anxiety Chronic depression Chronic low back pain Cocaine abuse in remission Colorectal polyps Diverticulitis Diverticulosis Esophagitis Gastritis and duodenitis GERD (gastroesophageal reflux disease) Hiatal hernia Obesity Pain, joint, shoulder, right Rectal bleeding Surgical History H/O esophagogastroduodenoscopy (~08/05/19) History of shoulder surgery Rotator cuff repair right shoulder. S/P colonoscopy (~08/05/19) Social History Smoking/Tobacco Use Status: Never Smoking risk assessment performed?: Yes Alcohol Intake: current Alcohol Intake frequency: a few times a month Alcohol type: beer Details: Decreased his drinking 4 weeks ago from 3-4 beers a night to 1 beer once wk Drug use: Occasionally Substance use type: marijuana Details: PT states it has been 2 weeks since he has used cocaine Household members: spouse Housing: house current occupation: self employed Do you feel safe at home: No Do you feel safe in your relationship?: No Meds Allergies and Home Medications Allergies Allergy/AdvReac Type Severity Reaction Status Date / Time Opioids - Morphine Analogues Allergy Unverified 01/17/22 18:21 Home Medications Medication Instructions Recorded Confirmed Type omeprazole 40 mg capsule,delayed 40 mg PO DAILY #90 caps 08/05/19 01/17/22 Rx release Exam Narrative Exam Narrative: General: Patient appears appropriate for age, flat affect with good eye contact. Alert and oriented x3. Speech is slow monotonous and tone. He is in no acute distress. He does appear anxious and slightly agitated. HEENT: Normocephalic, hair is long and unkempt with long izquierdo. Eyes with pup ils equal and reactive light symmetrically, extraocular movement intact and sclera anicteric. Oropharynx with moist gauze and fair dentition. Neck: Supple without JVD. Lungs: Clear to auscultation percussion with no focalized rales or rhonchi. Normal aeration. Back: Slightly stooped posture without CVA tenderness. Heart: Bradycardic rate and regular rhythm with no murmurs gallops appreciated. No rubs. Abdomen: Normal contour, soft nontender to palpation with no palpable hepatosplenomegaly. Bowel sounds positive in all quadrants. Genitalia/rectal: Exam deferred. Extremities: Without clubbing, cyanosis or pitting edema. Peripheral pulses intact. No joint swelling with fair range of motion of all joints. Skin: Normal color, multiple tattoos. Warm and dry. Neuro: Cranial nerves II through XII gross intact, no focalizing motor deficits. No tremor. Psych: Flattened affect with depressed mood and slight agitation at times with patient being anxious about not having his heart with that thoroughly. He has some victimization. No abnormal thought processes. Remote and recent memory i ntact. Results Imaging Imaging Studies: Exam: CTA Chest With Contrast Exam date and time: 01/17/2022 7:31 PM Age: 56 years old Clinical indication: Other: Chest pain, diaphoresis, shortness of breath TECHNIQUE: Imaging protocol: Computed tomographic angiography of the chest with contrast. 3D rendering (Not supervised by radiologist): MIP and/or 3D reconstructed images were created by the technologist. Contrast material: 350; Contrast volume: 100 ml; Contrast route: INTRAVENOUS (IV);? COMPARISON: CR XR CHEST 2V PA LATERAL 10/24/2021 8:52 AM FINDINGS: Pulmonary arteries: No pulmonary embolism identified. Aorta: No thoracic aortic aneurysm or dissection. Thyroid: Thyroid gland partially excluded from view but grossly unremarkable through its visualized portion. Lungs: Minimal dependent atelectasis. No pulmonary consolidation. Pleural spaces: No pleural effusion or pneumothorax. Heart: Normal sized heart. Lymph nodes: No pathologically enlarged mediastinal or hilar lymph nodes. Liver: Probable fatty infiltration of the liver, difficult to confidently diagnose by CT imaging after administration of intravenous contrast. Bones/joints: Lower ribs partially excluded from view and incompletely evaluated. Otherwise, no acute fracture seen among the bones of the chest. Spinal degenerative change with discogenic degeneration and anterior osteophytes at several levels. Soft tissues: No gross soft tissue mass or fluid collection seen in the chest wall. IMPRESSION: 1. No active disease is seen in the chest. 2. Probable fatty infiltration of the liver, difficult to confidently diagnose by CT imaging after administration of intravenous contrast. Labs Result diagrams: 01/17/22 18:25 01/17/22 18:25 Labs: Laboratory Results - last 24 hr 01/17/22 01/17/22 01/17/22 18:25 18:25 18:25 WBC 5.20 RBC 4.65 Hgb 14.1 Hct 40.3 MCV 87 MCH 30.3 MCHC 35.0 RDW 11.9 Plt Count 189 MPV 11.3 H Immature Gran % 0.2 Neutrophils % 51.5 Lymphocytes % 35.6 Monocytes % 6.9 Eosinophils % 5.0 Basophils % 0.8 Nucleated RBC % 0.0 Absolute Neutrophils 2.68 Absolute Lymphocytes 1.85 Absolute Monocytes 0.36 Absolute Eosinophils 0.26 Absolute Basophils 0.04 Sodium 142 Potassium 3.8 Chloride 103 Carbon Dioxide 25.3 Anion Gap 13.7 H BUN 18 Creatinine 1.2 Estimated GFR/1.73 m2 >= 60.00 Glucose 111 H Calcium 9.3 Magnesium 2.1 Total Bilirubin 0.7 AST 26 ALT 37 Alkaline Phosphatase 71 Troponin I < 50 NT-Pro-B Natriuret Pep 6 Total Protein 7.9 Albumin 4.3 COVID-19 Source 01/17/22 21:20 WBC RBC Hgb Hct MCV MCH MCHC RDW Plt Count MPV Immature Gran % Neutrophils % Lymphocytes % Monocytes % Eosinophils % Basophils % Nucleated RBC % Absolute Neutrophils Absolute Lymphocytes Absolute Monocytes Absolute Eosinophils Absolute Basophils Sodium Potassium Chloride Carbon Dioxide Anion Gap BUN Creatinine Estimated GFR/1.73 m2 Glucose Calcium Magnesium Total Bilirubin AST ALT Alkaline Phosphatase Troponin I NT-Pro-B Natriuret Pep Total Protein Albumin COVID-19 Source Nasal/Nares Last Vital Signs Pulse 62 01/17/22 18:44 Resp 19 01/17/22 18:44 BP 116/68 01/17/22 18:46 Pulse Ox 93 01/17/22 18:44
[2022-01-17 21:47] LABS: Troponin I < 50 ng/L (<or=60)
[2022-01-17 21:55] LABS: COVID-19 PCR Negative (Negative)
--- NOTE | 2022-01-17 22:03 | ED.GENADUL_ITS ---
Discharge Plan Disposition Patient Disposition: [facility] INPATIENT Condition: Stable Discharge Details Clinical Impression: Chest pain Admit Date/Time: 01/17/22 21:29 Admit Provider: Everardo Meeks Attending Provider: Everardo Meeks Primary Care Provider: Mak Mcghee ED Provider: Mago Hartmann Medical Decision Making Patient has a heart score of 3-4 depending on the severity, history is certainly concerning I will put him in a high risk for a He received aspirin at this time his story is concerning I think he meets criteria for rule out examination, he has 2 negative troponins and EKGs here, his pain is atypical with a negative stress test which showed treadmill only 2 months ago. Case discussed with Dr. Machado who is agreeable to admission at this time and a dose of nitroglycerin sublingually that completely alleviated her symptoms. He denies any current shortness of breath. He denies any nausea. He states that he is feeling marked improvement. HPI General Date/Time Provider Initiated Documentation: 01/17/22 18:05 . HPI Narrative: This 56-year-old male with history of GERD presents with intermittent and worsening chest pain since October when he was initially assessed. He had a stress test that was ordered outpatient on 26 October that was reportedly negative. He presents today secondary to recurrent pain that is worsening throughout the day today. It awoke him from sleep this morning at approximately 2:45 in the morning. This was followed by numerous episodes 1 that was exertional and he was playing with his grandson this afternoon. The pain was constant and radiating into his jaw upon arrival. He reports that he is sweaty. He has not reportedly used cocaine for the past 2 months. He does not use this cocaine regularly. He denies any IV drug abuse. He does not smoke tobacco. He denies any early family history of coronary artery disease. Denies history of hypertension and hyperactivity. Related Data Home Medications Medication Instructions Recorded Confirmed omeprazole 40 mg capsule,delayed 40 mg PO DAILY #90 caps 08/05/19 01/17/22 release Previous Rx's Medication Instructions Recorded omeprazole 40 mg capsule,delayed 40 mg PO DAILY #90 caps 08/05/19 release Allergies Allergy/AdvReac Type Severity Reaction Status Date / Time Opioids - Morphine Analogues Allergy Unverified 01/17/22 18:21 General Stated Complaint: Chest Pain URSULA: 2 Review of Systems All systems reviewed & are unremarkable except as noted in HPI and below PFSH All Active Problems Chest pain (Acute) Herniated disc (Acute) Medical History Alcohol dependence Atypical chest pain Barretts esophagus (~07/2019) Chronic anxiety Chronic depression Chronic low back pain Cocaine abuse in remission Colorectal polyps Diverticulitis Diverticulosis Esophagitis Gastritis and duodenitis GERD (gastroesophageal reflux disease) Hiatal hernia Obesity Pain, joint, shoulder, right Rectal bleeding Surgical History H/O esophagogastroduodenoscopy (~08/05/19) History of shoulder surgery Rotator cuff repair right shoulder. S/P colonoscopy (~08/05/19) Social History Smoking/Tobacco Use Status: Never Smoking risk assessment performed?: Yes Alcohol Intake: current Alcohol Intake frequency: a few times a month Alcohol type: beer Details: Decreased his drinking 4 weeks ago from 3-4 beers a night to 1 beer once wk Drug use: Occasionally Substance use type: marijuana Details: PT states it has been 2 weeks since he has used cocaine Household members: spouse Housing: house current occupation: self employed Do you feel safe at home: No Do you feel safe in your relationship?: No Exam Const General: cooperative, comfortable and no acute distress Eyes Pupils: PERRL Resp Effort & Inspection: normal respiratory effort Cardio Rate: regular rate Rhythm: regular rhythm GI Inspection: normal to inspection Skin General skin exam: no rashes or lesions noted Other: diaphoretic Neuro General: patient alert and patient oriented x3 Extrem General: normal to inspection Other: distal pulses intact no calf swelling or tenderness Course Vital Signs Vital signs: Vital Signs Pulse 57 L 01/17/22 18:10 Respiratory Rate 16 01/17/22 18:10 Blood Pressure 129/78 01/17/22 18:10 Pulse Oximetry 97 01/17/22 18:10 Pulse 62 01/17/22 18:44 Pulse 59 L 01/17/22 18:40 Respiratory Rate 19 01/17/22 18:44 Respiratory Effort 01/17/22 18:18 Respiratory Depth Normal 01/17/22 18:18 Respiratory Pattern Normal 01/17/22 18:18 Blood Pressure 116/68 01/17/22 18:46 Blood Pressure Position Sitting 01/17/22 18:10 Pulse Oximetry 93 01/17/22 18:44 Oxygen Delivery Method Room Air 01/17/22 18:44 Oxygen Flow Rate 0 01/17/22 18:44 Pain Level 4 01/17/22 18:10 Lab/Test Results Lab/Test Results: Laboratory Tests Range/Units 01/17/22 01/17/22 01/17/22 18:25 18:25 18:25 WBC (4.4-10.8) 10^3/uL 5.20 RBC (4.36-5.78) 10^6/uL 4.65 Hgb (13.5-17.5) g/dL 14.1 Hct (40.0-50.0) % 40.3 MCV (80-95) fL 87 MCH (27.0-33.0) pg 30.3 MCHC (32.0-36.0) % 35.0 RDW (11.8-14.1) % 11.9 Plt Count (130-400) 10^3/uL 189 MPV (8.0-11.0) fL 11.3 H Immature Gran % 0.2 Neutrophils % 51.5 Lymphocytes % 35.6 Monocytes % 6.9 Eosinophils % 5.0 Basophils % 0.8 Nucleated RBC % (0.0-0.3) % 0.0 Absolute Neutrophils (1.2-6.7) 10^3/uL 2.68 Absolute Lymphocytes (1.2-3.4) 10^3/uL 1.85 Absolute Monocytes (0.1-0.8) 10^3/uL 0.36 Absolute Eosinophils (0.0-0.7) 10^3/uL 0.26 Absolute Basophils (0.0-0.2) 10^3/uL 0.04 Sodium (136-145) mmol/L 142 Potassium (3.5-5.1) mmol/L 3.8 Chloride (98-107) mmol/L 103 Carbon Dioxide (21.0-32.0) mmol/L 25.3 Anion Gap (3-11) mmol/L 13.7 H BUN (7-18) mg/dL 18 Creatinine (0.70-1.30) mg/dL 1.2 Estimated GFR/1.73 m2 (mL/min/1.73m2) >= 60.00 Glucose (74-106) mg/dL 111 H Calcium (8.5-10.1) mg/dL 9.3 Magnesium (1.8-2.4) mg/dL 2.1 Total Bilirubin (0.2-1.0) mg/dL 0.7 AST (15-37) U/L 26 ALT (16-63) U/L 37 Alkaline Phosphatase (46-116) U/L 71 Troponin I (<or=60) ng/L < 50 NT-Pro-B Natriuret Pep (<300) pg/mL 6 Total Protein (6.4-8.2) g/dL 7.9 Albumin (3.4-5.0) g/dL 4.3 COVID-19 Source Range/Units 01/17/22 01/17/22 21:20 21:27 WBC (4.4-10.8) 10^3/uL RBC (4.36-5.78) 10^6/uL Hgb (13.5-17.5) g/dL Hct (40.0-50.0) % MCV (80-95) fL MCH (27.0-33.0) pg MCHC (32.0-36.0) % RDW (11.8-14.1) % Plt Count (130-400) 10^3/uL MPV (8.0-11.0) fL Immature Gran % Neutrophils % Lymphocytes % Monocytes % Eosinophils % Basophils % Nucleated RBC % (0.0-0.3) % Absolute Neutrophils (1.2-6.7) 10^3/uL Absolute Lymphocytes (1.2-3.4) 10^3/uL Absolute Monocytes (0.1-0.8) 10^3/uL Absolute Eosinophils (0.0-0.7) 10^3/uL Absolute Basophils (0.0-0.2) 10^3/uL Sodium (136-145) mmol/L Potassium (3.5-5.1) mmol/L Chloride (98-107) mmol/L Carbon Dioxide (21.0-32.0) mmol/L Anion Gap (3-11) mmol/L BUN (7-18) mg/dL Creatinine (0.70-1.30) mg/dL Estimated GFR/1.73 m2 (mL/min/1.73m2) Glucose (74-106) mg/dL Calcium (8.5-10.1) mg/dL Magnesium (1.8-2.4) mg/dL Total Bilirubin (0.2-1.0) mg/dL AST (15-37) U/L ALT (16-63) U/L Alkaline Phosphatase (46-116) U/L Troponin I (<or=60) ng/L < 50 NT-Pro-B Natriuret Pep (<300) pg/mL Total Protein (6.4-8.2) g/dL Albumin (3.4-5.0) g/dL COVID-19 Source Nasal/Nares
[2022-01-17] MEDS: Enoxaparin 40 MG/0.4 ML SYR SC (23:27)
[2022-01-18] VITALS (7 sets, daily range): BP systolic 102–121; BP diastolic 63–71; PULSE 52–60; RESP 16–18; TEMP 36–36.9; O2SAT 97–98
[2022-01-18] MEDS: LORazepam 1 MG TAB PO
--- NOTE | 2022-01-18 | DI.US_ITS ---
Exam(s) US ABDOMEN LIMITED EXAM: US ABDOMEN LIMITED CLINICAL HISTORY: Lower chest/upper abd pain TECHNIQUE: Ultrasound examination of the right upper quadrant was performed according to the usual p rotocol. COMPARISON: CT CT CHEST PE CTA from 01/17/2022 US US ECHOCARDIOGRAM from 01/18/2022 FINDINGS: The liver is normal in size and shape. The hepatic echotexture is mildly coarsened with mildly incre ased hepatic echogenicity. Findings may represent hepatic steatosis. No focal lesion identified. Portal venous flow is hepatopetal. No evidence of cholelithiasis. No biliary dilatation. Unremarkable appearance of the pancreas. Right kidney appears normal with no hydronephrosis or nephrolithiasis. Abdominal aorta and IVC are of normal diameter. IMPRESSION: Possible hepatic steatosis, no evidence of cholelithiasis.. RADIATION DOSE DELIVERED: Total DLP
[2022-01-18 02:11] LABS: Troponin I < 50 ng/L (<or=60)
[2022-01-18 06:09] LABS: Abs Immature Grans 0.02 10^3/uL (0.0-0.06); Absolute Basophil Count 0.03 10^3/uL (0.0-0.2); Absolute Eosinophil Count 0.28 10^3/uL (0.0-0.7); Absolute Lymphocyte Count 2.06 10^3/uL (1.2-3.4); Absolute Monocyte Count 0.42 10^3/uL (0.1-0.8); Absolute Neutrophil Count 2.05 10^3/uL (1.2-6.7); Basophils % 0.6; Eosinophils % 5.8; HCT 38.6 % (40.0-50.0); HGB 13.3 g/dL (13.5-17.5); Immature Grans % 0.4; Lymphocytes % 42.4; MCH 30.2 pg (27.0-33.0); MCHC 34.5 % (32.0-36.0); MCV 88 fL (80-95); MPV 11.2 fL (8.0-11.0); Monocytes % 8.6; Neutrophils % 42.2; Platelet Count 177 10^3/uL (130-400); RDW 11.9 % (11.8-14.1); RDW-SD 38.2 fL; WBC 4.86 10^3/uL (4.4-10.8)
[2022-01-18 06:34] LABS: ALT 37 U/L (16-63); AST 22 U/L (15-37); Albumin 3.9 g/dL (3.4-5.0); Alkaline Phosphatase 66 U/L (46-116); BUN 18 mg/dL (7-18); Bilirubin, Total 0.8 mg/dL (0.2-1.0); Calcium 8.8 mg/dL (8.5-10.1); Chloride 104 mmol/L (98-107); Glucose 104 mg/dL (74-106); Sodium 140 mmol/L (136-145); Total Protein 7.3 g/dL (6.4-8.2); Troponin I < 50 ng/L (<or=60)
[2022-01-18] MEDS: Normal Saline Flush 10 ML SYR IVP (07:38)
[2022-01-18] MEDS: Omeprazole 20 MG CAPCR 40 MG PO (07:38)
--- NOTE | 2022-01-18 08:00 | DI.US_ITS ---
APPROVED REPORT EXAM: Comprehensive 2D, Doppler, and color-flow Echocardiogram Patient Location: In-Patient Room/Bed: 231 Audit Tech: Brielle Molina RDCS (AE) Indications: A typical chest pain Other Information Study Quality: Adequate Conclusion Normal left ventricular wall thickness and chamber size. Estimated ejection fraction is 60%. Wall m otion is normal Normal right ventricular size and systolic function Both atria are normal in size There is no structural or hemodynamically significant valvular disease Mildly dilated ascending aorta measuring 3.64 cm Normal estimated right ventricular systolic pressure 25 mmHg Wall motion Left Ventricle The left ventricle is normal size. The left ventricular systolic function is normal. The left ventric ular ejection fraction is within the normal range. There is normal left ventricular wall thickness. T here is normal LV segmental wall motion. There is no ventricular septal defect visualized. LVEF is 60 %. Right Ventricle The right ventricle is normal size. The right ventricular systolic function is normal. The RVSP is 25 .4 mmHg. Atria The left atrium size is normal. The right atrium size is normal. The interatrial septum is intact wit h no evidence for an atrial septal defect. Aortic Valve The aortic valve is normal in structure. Aortic valve is trileaflet. There is no aortic valvular sten osis. No aortic regurgitation is present. Mitral Valve The mitral valve is normal in structure. No evidence of mitral valve stenosis. Trace mitral regurgita tion. Tricuspid Valve The tricuspid valve is normal in structure. There is no tricuspid valve stenosis. Trace tricuspid reg urgitation. Pulmonic Valve The pulmonary valve is normal in structure. There is no pulmonic valvular stenosis. There is no pulmo andrea valvular regurgitation. Great Vessels The aortic root is normal in size. The ascending aorta is mildly dilated. Aortic arch is normal in ca liber. The IVC collapses <50% with inspiration. Pericardium There is no pericardial effusion. 2D Dimensions IVSD d PLAX 0.93 cm M: 0.6-1.2 LV Vol A2C d MOD 142.6 mL LVPW d PLAX 0.93 cm M: 0.6 - 1.2 LV Vol A4C d MOD 153.8 mL LVID d PLAX 5.26 cm M: 4.2 - 5.8 LA vol/ BSA A2C s A-L 42.6 mL/m2 LVDs 3.65 cm M: 2.5 - 4.0 LA vol/ BSA A4C s A-L 37.5 mL/m2 Ao Root d 3.15 cm M: 3.1 - 3.7 LA Vol/ BSA Biplane s A-L 41.5 mL/m2 RA Area A4C 21.74 cm2 LA Area A4C s MOD 25.54 cm2 RA Vol/ BSA A4C s A-L 31.7 mL/m2 LA Area A2C s MOD 26.20 cm2 Ao Asc Diam d 3.64 cm M: 2.6 - 3.4 LV EF A4C MOD 60.6 % LV EF Teichholz 56.9 % LV EF A2C MOD 59.8 % LVEF (Dugan's) 60.27 % M: 52 - 72 LV EF Biplane MOD 60.3 % LV Volume 109.16 mL M: 62 - 150 SV 90.81 mL LV Volume Index 49.17 mL/m2 M: 34 - 74 SV Index 40.78 mL/m2 LV Vol Biplane MOD 150.7 mL FS 30.05 % M-Mode TAPSE 2.38 cm (M/F) >1.7 LV Diastology MV E' medial 0.062 (>0.07 m/s) E/A Ratio 1.0 LV E/e MED 9.05 (<14) MV E Vmax 0.57 (0.4-1.3 m/s) MV E' lateral 0.108 (>0.1 m/s) MV A Vmax 0.55 (0.4-1.3 m/s) LV E/e LAT 5.25 (<14) MV E/A Ratio 0.96 MV E/E' medial 9.10 MV E/E' lateral 5.27 Aortic Valve LVOT Area 3.66 cm2 AoV Area Vmax 2.96 cm2 LVOT Vmax 1.11 m/s AoV Area/ BSA (Vmax) 1.33 cm2/m2 LVOT Mean Malcolm. 0.68 m/s BRIEN Mean Malcolm. 2.48 cm2 LVOT Peak Grad 4.9 mmHg BRIEN Mean Malcolm. Index 1.11 cm2/m2 LVOT Mean Grad 2.3 mmHg LVOT VTI 0.252 m LVOT Diam s 2.15 cm AoV Vmax 1.37 m/s Velocity Ratio 0.81 AoV Mean Malcolm. 1.00 m/s AoV Peak Grad 7.5 mmHg LVOT SV 92.14 mL AoV Mean Grad 4.4 mmHg AoV VTI 0.297 m AoV Area VTI 3.10 cm2 AoV Area/ BSA (VTI) 1.39 cm/m2 Mitral Valve MV DT 263 (160-240 msec) MV PHT 76 msec MV Area PHT 2.88 cm2 MV VTI 0.308 m MV Area VTI 2.99 (4.0-6.0 cm2) Pulmonary Valve PV Vmax 1.04 (0.5-1.5 m/s) RVOT Peak Gr. 2.67 mmHg PV Peak Grad 4.4 mmHg RVOT Mean Gr. 1.35 mmHg PV Mean Grad 2.2 mmHg RVOT VTI 0.175 m PV VTI 0.232 m RVOT Vmax 0.82 m/s Tricuspid Valve TR Peak Grad 17.4 mmHg TR Vmax 2.09 m/s RA Pressure 8.00 mmHg RVSP (TR) 25.4 mmHg
[2022-01-18 08:56] LABS: *AMPHETAMINES SCREEN URINE Negative (Negative); *BARBITURATES SCREEN URINE Negative (Negative); *BENZODIAZEPINES SCREEN URINE Negative (Negative); Cannabinoids THC Positive (Negative); Cocaine Screen,Urine Negative (Negative); METHADONE URINE SCREEN Negative (Negative); OPIATES URINE SCREEN Negative (Negative)
[2022-01-18 08:56] LABS: Calculated LDL 118 mg/dL (<100); Cholesterol 198 mg/dL (<200); HDL Cholesterol 50 mg/dL (40-60); Triglyceride 151 mg/dL (<150)
[2022-01-18 09:03] LABS: Tricyclic Antidepressants Negative (Negative)
--- NOTE | 2022-01-18 10:36 | INITIAL_ITS ---
- If Service Date Differs Date of service: 01/18/22 Time of Service: 10:36 Care Management Initial Assess REASON FOR HOSPITALIZATION:: atypical chest pain PAST MEDICAL HISTORY/PAST SURGICAL HISTORY:: Medical History . Alcohol dependence. Atypical chest pain. Barretts esophagus (~07/2019). Chronic anxiety. Chronic depression. Chronic low back pain. Cocaine abuse in remission. Colorectal polyps. Diverticulitis. Diverticulosis. Esophagitis. Gastritis and duodenitis. GERD (gastroesophageal reflux disease). Hiatal hernia. Obesity. Pain, joint, shoulder, right. Rectal bleeding. Surgical History . H/O esophagogastroduodenoscopy (~08/05/19). History of shoulder surgery. Rotator cuff repair right shoulder. S/P colonoscopy (~08/05/19) PREVIOUS FUNCTIONAL STATUS/SOCIAL/FAMILY SUPPORTS:: Kristian lives in [place] with his Lay and one of his daughters and her son. He has 2 other children whol pavel independently. 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 He does use a cane occasionally as he has issues with his back and knee from time to time.he receives no community services. CURRENT FUNCTIONAL STATUS:: Kristian was sititng up in bed when CM met with him. He was polite but reserved in manner early in the conversation. Kristian talked about his family and his work and then had a lengthy discussion with CM about advanced directives. He requested 2 copies as he would likel to complete them with his . CM provided same. ADVANCE DIRECTIVES:: none on file Has patient been provided with info about the portal/API?: Yes Did the patient sign up for the portal?: Yes (previously) CODE STATUS:: Full Code INSURANCE COVERAGE / FINANCIAL ISSUES:: GAEL GORDON CURRENT HOME/COMMUNITY SERVICES/EQUIPMENT:: cane PRIMARY CARE PHYSICIAN:: Mak Mcghee POTENTIAL DISCHARGE NEEDS:: follow up with PCP and plan of care PATIENT/FAMILY EDUCATION NEEDS:: Review of discharge instructions, limitations, follow up plan, activity, discuss Ask Me Three TRANSPORTATION:: via private vehicle PLAN:: Kristian will likely be discharged home with no new services. He will follow up with his PCP and plan of care and transport with family. CM will provide support to Kristian and his discharge planning needs.
--- NOTE | 2022-01-18 13:53 | CHAPLAIN ---
Kristian was sitting up in bed when I visited. He said he expects to be discharged today, since he's been here 24 hours. I explained my role and offered support.
--- NOTE | 2022-01-18 16:15 | W.PM.DS.N ---
DS: Diagnosis Discharge Diagnosis (1) Atypical chest pain: (2) Chronic depression: (3) Cocaine abuse in remission: (4) GERD (gastroesophageal reflux disease): Discharge Plan Disposition Patient Disposition: HOME Condition: Stable Discharge Details Reason For Visit: Atypical Chest Pain Admit Date/Time: 01/17/22 21:29 Admit Provider: Everardo Meeks Attending Provider: Everardo Meeks Primary Care Provider: Mak Mcghee [facility] Hospital Course: This 56-year-old male with history of GERD presents with intermittent and worsening chest pain since October when he was initially assessed.? He had a stress test that was ordered outpatient on 26 October that was reportedly negative.? He presents today secondary to recurrent pain that is worsening throughout the day today.? It awoke him from sleep this morning at approximately 2:45 in the morning.? This was followed by numerous episodes 1 that was exertional and he was playing with his grandson this afternoon.? 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 The pain today was constant and radiating into his jaw mostly on the right side but the pain always occurring in the left lower rib area and not retrosternal.? It often does radiate into his jaw.? With presentation he was short of breath and diaphoretic which is new from previous episodes but had no nausea.? His chest pain always awakens him in the middle of the night and when that occurs he has started pain throughout the day.? He did respond to nitroglycerin sublingually when reported to the ED this visit.? He had no EKG changes and negative troponins in the ED.? He has not reportedly used cocaine for the past 2 months intermittently using cocaine and smoking marijuana.? The patient does snort cocaine.? He states that he does not use this cocaine regularly.? He denies any IV drug abuse.? He does not smoke tobacco.? He denies any family history of early coronary artery disease.? Denies history of hypertension, hyperlipidemia and is not overweight.? He does drive a motorcycle often has cramps in his legs when driving long distances.? As stated he is a cho and very physically active daily with no association with activity and his chest pain.? He also has finders no association between eating and his discomfort.? He has not had any evaluation with EGD or gallbladder evaluation.? He does want an echocardiogram which has been ordered and wants to avoid cardiac catheterization though this may be necessary.? He was admitted for observation and trending of his troponins.? He was chest pain-free when evaluated on the medical floor. Troponins were negative. Echocardiogram showed an EF of 60%. No wall motion abnormalities. No structural or hemodynamically significant valvular disease. An abdominal US was performed that showed possible hepatic steatosis. No evidence of cholelithiasis. Encouraged to avoid cocaine use. PCP follow up in 1-2 weeks. Home Meds and New Rx's Prescriptions: New acetaminophen 325 mg Tablet 650 mg PO Q4H PRN PRNQty: 0 0RF omeprazole 20 mg Capsule,Delayed Release(Dr/Ec) 40 mg PO BID Qty: 60 0RF nitroglycerin 0.4 mg tablet, sublingual 0.4 mg sublingual Q5-15M PRNQty: 10 0RF Rx Instructions: do not exceed 3 doses per episode Discontinued omeprazole 40 mg capsule,delayed release(DR/EC) 40 mg PO DAILY Qty: 90 3RF Discharge Instructions Instructions: Chest Pain (DC) Stand Alone Forms: Nursing Discharge Form Referrals: Mak Mcghee [Primary Care Provider] - (Please call Saturday to make an appointment in the next 2 weeks ) Activity:: Activity as Tolerated Equipment/Supplies:: No Equipment Needed Diet:: Normal Diet Discharge Orders Discharge Orders: Discharge Order (Routine); Ordered 01/18/22 Ordered By: Atiya Patino Discharge Data Discharge Date/Time-TO BE ENTERED AT DEPARTURE: 01/18/22 17:30 DS: Summary Time Spent with Patient providing and/or coordinating discharge services: Greater than 30 minutes Status at Discharge Functional status at discharge: independent ambulation Overall status at discharge: patient is back to baseline Mental Status: mental status grossly normal Speech and Movement: speech and movement normal Mood: congruent mood Affect: normal affect Exam Narrative Exam Narrative: General: Lying in bed. NAD. Pleasant and cooperative. Neck: Supple without JVD. Lungs: Clear to auscultation. No increased work of breathing. Heart: Bradycardic rate and regular rhythm with no murmurs gallops appreciated. No rubs. Abdomen: Soft, NT. +BS Extremities: No edema, calf tenderness, joint swelling. Skin: Normal color, multiple tattoos. Warm and dry. Psych: A&O x 3. Affect normal. Psych Mental Status: mental status grossly normal Speech and Movement: speech and movement normal Mood: congruent mood Affect: normal affect DS: Data Vitals/I&O Vitals and I&O: Vital Signs Temperature 36.0 C L 01/18/22 15:43 Temperature Source Tympanic 01/18/22 15:43 Pulse 58 L 01/18/22 15:43 Pulse Rhythm Regular 01/18/22 07:05 Pulse 64 01/17/22 18:50 Respiratory Rate 16 01/18/22 15:43 Respiratory Effort Non-Labored 01/18/22 07:05 Respiratory Depth Normal 01/18/22 07:05 Respiratory Pattern Normal 01/18/22 07:05 Blood Pressure 114/69 01/18/22 15:43 Blood Pressure Position Sitting 01/17/22 18:10 Pulse Oximetry 98 01/18/22 15:43 Oxygen Delivery Method Room Air 01/18/22 15:43 Oxygen Flow Rate 0 01/18/22 15:43 Pain Level 0 01/18/22 15:43 Intake & Output 01/17/22 01/18/22 01/18/22 23:59 11:59 23:59 Intake Total 444 / 444 444 / 444 Output Total 900 / 900 Balance 444 / 444 -456 / -456 Weight 101 kg 98.4 kg Intake: Oral 444 / 444 444 / 444 Output: Urine 900 / 900 Other: Urine Color Yellow Urine Appearance Clear Urine Odor None Voiding Methods Urinal Data Completed and Pending Labs on day of discharge: Labs from last 24 hours 01/18/22 01/18/22 01/18/22 06:30 05:55 05:55 WBC 4.86 RBC 4.40 Hgb 13.3 L Hct 38.6 L MCV 88 MCH 30.2 MCHC 34.5 RDW 11.9 Plt Count 177 MPV 11.2 H Immature Gran % 0.4 Neutrophils % 42.2 Lymphocytes % 42.4 Monocytes % 8.6 Eosinophils % 5.8 Basophils % 0.6 Nucleated RBC % 0.0 Absolute Neutrophils 2.05 Absolute Lymphocytes 2.06 Absolute Monocytes 0.42 Absolute Eosinophils 0.28 Absolute Basophils 0.03 Sodium Potassium Chloride Carbon Dioxide Anion Gap BUN Creatinine Estimated GFR/1.73 m2 Glucose Calcium Magnesium Total Bilirubin AST ALT Alkaline Phosphatase Troponin I NT-Pro-B Natriuret Pep Total Protein Albumin Triglycerides 151 H Total Cholesterol 198 LDL Cholesterol, Calc 118 H HDL Cholesterol 50 TSH Urine Opiates Screen Negative Urine Methadone Screen Negative Ur Barbiturates Screen Negative Ur Tricyclics Screen Negative Ur Amphetamines Screen Negative U Benzodiazepines Scrn Negative Urine Cocaine Screen Negative Ur THC Screen Positive A COVID-19 Source SARS-CoV-2 (PCR) 01/18/22 01/18/22 01/18/22 05:55 05:55 01:33 WBC RBC Hgb Hct MCV MCH MCHC RDW Plt Count MPV Immature Gran % Neutrophils % Lymphocytes % Monocytes % Eosinophils % Basophils % Nucleated RBC % Absolute Neutrophils Absolute Lymphocytes Absolute Monocytes Absolute Eosinophils Absolute Basophils Sodium 140 Potassium 4.0 Chloride 104 Carbon Dioxide 28.0 Anion Gap 8.0 BUN 18 Creatinine 1.0 Estimated GFR/1.73 m2 >= 60.00 Glucose 104 Calcium 8.8 Magnesium Total Bilirubin 0.8 AST 22 ALT 37 Alkaline Phosphatase 66 Troponin I < 50 < 50 NT-Pro-B Natriuret Pep Total Protein 7.3 Albumin 3.9 Triglycerides Total Cholesterol LDL Cholesterol, Calc HDL Cholesterol TSH Urine Opiates Screen Urine Methadone Screen Ur Barbiturates Screen Ur Tricyclics Screen Ur Amphetamines Screen U Benzodiazepines Scrn Urine Cocaine Screen Ur THC Screen COVID-19 Source SARS-CoV-2 (PCR) 01/17/22 01/17/22 01/17/22 21:27 21:27 21:20 WBC RBC Hgb Hct MCV MCH MCHC RDW Plt Count MPV Immature Gran % Neutrophils % Lymphocytes % Monocytes % Eosinophils % Basophils % Nucleated RBC % Absolute Neutrophils Absolute Lymphocytes Absolute Monocytes Absolute Eosinophils Absolute Basophils Sodium Potassium Chloride Carbon Dioxide Anion Gap BUN Creatinine Estimated GFR/1.73 m2 Glucose Calcium Magnesium Total Bilirubin AST ALT Alkaline Phosphatase Troponin I Cancelled < 50 NT-Pro-B Natriuret Pep Total Protein Albumin Triglycerides Total Cholesterol LDL Cholesterol, Calc HDL Cholesterol TSH 1.80 Urine Opiates Screen Urine Methadone Screen Ur Barbiturates Screen Ur Tricyclics Screen Ur Amphetamines Screen U Benzodiazepines Scrn Urine Cocaine Screen Ur THC Screen COVID-19 Source Nasal/Nares SARS-CoV-2 (PCR) Negative 01/17/22 01/17/22 01/17/22 18:25 18:25 18:25 WBC 5.20 RBC 4.65 Hgb 14.1 Hct 40.3 MCV 87 MCH 30.3 MCHC 35.0 RDW 11.9 Plt Count 189 MPV 11.3 H Immature Gran % 0.2 Neutrophils % 51.5 Lymphocytes % 35.6 Monocytes % 6.9 Eosinophils % 5.0 Basophils % 0.8 Nucleated RBC % 0.0 Absolute Neutrophils 2.68 Absolute Lymphocytes 1.85 Absolute Monocytes 0.36 Absolute Eosinophils 0.26 Absolute Basophils 0.04 Sodium 142 Potassium 3.8 Chloride 103 Carbon Dioxide 25.3 Anion Gap 13.7 H BUN 18 Creatinine 1.2 Estimated GFR/1.73 m2 >= 60.00 Glucose 111 H Calcium 9.3 Magnesium 2.1 Total Bilirubin 0.7 AST 26 ALT 37 Alkaline Phosphatase 71 Troponin I < 50 NT-Pro-B Natriuret Pep 6 Total Protein 7.9 Albumin 4.3 Triglycerides Total Cholesterol LDL Cholesterol, Calc HDL Cholesterol TSH Urine Opiates Screen Urine Methadone Screen Ur Barbiturates Screen Ur Tricyclics Screen Ur Amphetamines Screen U Benzodiazepines Scrn Urine Cocaine Screen Ur THC Screen COVID-19 Source SARS-CoV-2 (PCR) PFSH All Active Problems Chest pain (Acute) Herniated disc (Acute) Medical History Alcohol dependence Atypical chest pain Barretts esophagus (~07/2019) Chronic anxiety Chronic depression Chronic low back pain Cocaine abuse in remission Colorectal polyps Diverticulitis Diverticulosis Esophagitis Gastritis and duodenitis GERD (gastroesophageal reflux disease) Hiatal hernia Obesity Pain, joint, shoulder, right Rectal bleeding Surgical History H/O esophagogastroduodenoscopy (~08/05/19) History of shoulder surgery Rotator cuff repair right shoulder. S/P colonoscopy (~08/05/19) Social History Smoking/Tobacco Use Status: Never Smoking risk assessment performed?: Yes Alcohol Intake: current Alcohol Intake frequency: a few times a month Alcohol type: beer Details: Decreased his drinking 4 weeks ago from 3-4 beers a night to 1 beer once wk Drug use: Occasionally Substance use type: marijuana Details: PT states it has been 2 weeks since he has used cocaine Household members: spouse Housing: house current occupation: self employed Do you feel safe at home: No Do you feel safe in your relationship?: No
== END 2022-01-18 17:30 | disposition home or self-care (01) ==
LOC: ER 21:34 → MS 22:30
PROVIDERS: Admitting Provider Family Medicine; Emergency Provider Physician Assistant; PCP Family Medicine; Visit Provider Family Medicine
DX: R07.89 Other chest pain (principal); K21.9 Gastro-esophageal reflux disease without esophagitis; F32.A Depression, unspecified; F41.9 Anxiety disorder, unspecified; G89.29 Other chronic pain; M54.50 Low back pain, unspecified; K57.90 Diverticulosis of intestine, part unspecified, without perforation or abscess without bleeding; Z20.822 Contact with and (suspected) exposure to COVID-19; I77.810 Thoracic aortic ectasia; F12.90 Cannabis use, unspecified, uncomplicated; F14.90 Cocaine use, unspecified, uncomplicated
CPT/HCPCS: 36415; 71275; 80053; 80061; 80307; 87635; 93005; 96372; 99285; J1650; 76705; 83735; 83880; 84443; 84484; 85025; 93010; 93306; 99217; 99220; G0378; J3490

== ENCOUNTER 2022-01-23 19:24 | Outpatient (REF) | payer BC, SELFPAY ==
[2022-01-23 19:32] LABS: Iron 96 ug/dL (65-175); Total Iron Binding Capacity 323 ug/dL (250-450); Transferrin Sat 30 % (20-55)
[2022-01-23 19:53] LABS: Vitamin B12 286 pg/mL (193-986)
[2022-01-25 08:42] LABS: Hepatitis B Surface Ag Negative (Negative)
[2022-01-25 09:22] LABS: HIV-1/2 Ag & Ab Screen Negative (Negative)
[2022-01-25 09:37] LABS: Hepatitis C Ab w Rflx HCV PCR Negative (Negative)
[2022-01-25 10:51] LABS: Lyme Ab w Rflx to Lyme Confirm Negative (Negative)
== END 2022-01-23 19:25 | disposition home or self-care (01) ==
LOC: NCHCN 19:24
PROVIDERS: PCP Family Medicine; Visit Provider Family Medicine
DX: R53.83 Other fatigue (principal); D64.9 Anemia, unspecified; Z12.4 Encounter for screening for malignant neoplasm of cervix; Z11.59 Encounter for screening for other viral diseases
CPT/HCPCS: 86803; 87340; 87389; 82607; 83540; 83550; 86618

== ENCOUNTER 2022-04-23 08:45 | Outpatient (CLI) | payer BC, SELFPAY ==
--- NOTE | 2022-04-23 08:45 | RT.EKG_ITS ---
APPROVED REPORT Exam: Resting ECG Reason for Exam: chest pain Patient Location: O HR:64 bpm ECG Measurements Heart Rate 64 AXIS MI 169 P 48 QRSd 92 QRS 27 QT 392 T 47 QTc 405 Conclusion Sinus rhythm...normal P axis, V-rate 50- 99 Baseline wander in lead(s) V2,V5 Normal Electrocardiogram
== END 2022-04-23 08:46 | disposition home or self-care (01) ==
LOC: DI.CARD 08:46
PROVIDERS: PCP Family Medicine; Visit Provider Internal Medicine Cardiovascular Disease
DX: R07.9 Chest pain, unspecified (principal)
CPT/HCPCS: 93010

== ENCOUNTER 2022-05-17 00:51 | Outpatient (CLI) | payer BC, SELFPAY ==
--- NOTE | 2022-05-17 07:45 | DI.NM_ITS ---
APPROVED REPORT Exam: Exercise Treadmill Patient Location: Out-Patient Room/Bed: Stress Nurse: Mari Natarajan RN Ordering Provider:MAEVE SPRING, Contact Number: [phone] BMI: 30.34 Baseline Rhythm: Sinus Rhythm Indications: Chest pain, atypical angina Medical History Medical History: Anxiety, GERD, obesity, depression, hx substance abuse Cardiac Medications: Nitroglycerin prn, omeprazole Allergies: Morphine analogues Cardiac Risk Factors: obesity Previous Cardiac Procedures: None Pretest Chest Pain Characteristics: None Exercise History: Indeterminate Physical Disabilities: None Lung Sounds: LCTA Heart Sounds: regular s1/s2 Stress Test Details Test: Exercise stress testing was performed using a Ines protocol. Nuclear Acquisition: Rest Tc-99m/Stress Tc-99m 1 day Rest Isotope: Tc-99m Sestamibi. Dose: 10.5 Date: 05/17/2022 Injection Time: 1110 Stress Isotope: Tc-99m Sestamibi. Dose: 31 Date: 05/17/2022 Injection Time: 1300 HR Resting HR Supine: 54 bpm Max Heart Rate (APMHR): 162.734105 bpm Resting HR Standin bpm Target HR (85% APMHR): 137.462761 bpm Max HR Achieved: 148 bpm % of APMHR: 91.36 Recovery HR: 75 bpm HR response to stress: Normal HR response to stress BP Resting BP Supine: 132/70 mmHg Resting BP Standin/70 mmHg Max BP: 188/62 mmHg Recovery BP: 110/60 mmHg BP response to stress: Normal blood pressure response to stress. ECG Resting ECG: Sinus Rhythm Ectopy: None Stress ECG: Sinus Tachycardia ST Change: No significant ST segment changes noted Recovery ECG: NSR, ? sinus arrythmia Recovery ST Change: No significant ST segment changes noted Recovery Arrhythmia: None Clinical Reason for Termination: Fatigue, Target HR Achieved Stress Symptoms: None Exercise duration: 8 min21 sec Highest Stage Reached: Stage 3: 3.4 mph at 14% grade. Exercise capacity: 10.16 METs Angina Score: None Barahona Treadmill Score: 7.4 Rate Pressure Product: [id number] Stress ECG Conclusion 1. The resting electrocardiogram was within normal limits 2. The patient exercised on the Ines protocol and completed a workload of 10.16 METS, limited by fat igue. 3. Normal heart rate and blood pressure response to exercise. Patient achieved 91% of predicted hear t rate for age 4. There was no electrocardiographic evidence of myocardial ischemia 5. See MPI report Barahona Treadmill Score is 7.4 which is Low risk. Stress Test Summary STAGE Time (mins) Speed (mph) Grade (%) HR BP SpO2 SYMPTOMS METS Supine 54 132/70 Standing 62 128/70 1 3 1.7 10 97 138/70 4.5 2 6 2.5 12 120 150/80 7 3 9 3.4 14 143 10 1 min recovery 121 188/62 3 min recovery 71 160/74 6 min recovery 75 110/60 Pt presented to stress testing area reporting no current symptoms but that he did have symptoms aroun d 2:45 am this morning that lasted for a few hours. Pt reports he had chest pain that was relieved w/ SL Nitro x2. At time of test pt reported no symptoms and reviewed resting EKG prior to start ing test. Patient exercised utilizing ines protocol. Tolerated test well, vital signs stable. MPI Conclusion Normal myocardial perfusion. There is no ischemia or evidence of prior infarction EF 52% normal wall motion Radiologist Interpretation Radiologist agrees with Gallery Or Museum Guide's Interpretation. Radiologist Interpretation by: Love Conner MD Interpretation Date/Time: 05/17/2022 16:19:43
== END 2022-05-17 01:11 ==
PROVIDERS: PCP Family Medicine; Visit Provider Internal Medicine Cardiovascular Disease
DX: I20.8 Other forms of angina pectoris (principal)
CPT/HCPCS: 78452; 93016; 93018; 93017

== ENCOUNTER 2022-09-01 14:02 | Emergency (ER) | payer BC, SELFPAY ==
[2022-09-01] VITALS (19 sets, daily range): BP systolic 113–132; BP diastolic 68–81; PULSE 57–69; RESP 9–20; TEMP 37.1; O2SAT 95–98
--- NOTE | 2022-09-01 14:45 | RT.EKG_ITS ---
APPROVED REPORT Exam: Resting ECG Reason for Exam: epigastric pain Patient Location: E HR:54 bpm ECG Measurements Heart Rate 54 AXIS DC 175 P 12 QRSd 92 QRS 16 QT 460 T 46 QTc 436 Conclusion Sinus bradycardia...rate< 60
--- NOTE | 2022-09-01 14:45 | DI.CT_ITS ---
Exam(s) CT ABDOMEN PELVIS W EXAM: CT ABDOMEN PELVIS W CLINICAL HISTORY: epigastric pain, hematemesis TECHNIQUE: Imaging Protocol: Axial computed tomography images with coronal and sagittal reformatted images were created and reviewed CONTRAST MATERIAL: Intravenous: Omnipaque 350 contrast volume:100 mL Oral: No FINDINGS: ABDOMEN: Lung Bases: There is an unchanged 3 mm noncalcified pulmonary nodule in the lateral aspect of the rig ht lower lobe. No follow-up is recommended. Liver: There is diffuse decreased attenuation of the liver suggesting fatty infiltration. No measura ble mass. Portal, Superior Mesenteric, and Splenic Veins: Unremarkable. Gallbladder and Biliary Tract: No radiodense calculus or dilation. Pancreas: Normal density, no abnormal calcifications or inflammatory process. Spleen: Normal. Adrenals: No masses seen. Kidneys: Normal size, contour and axis. No radiodense stones or obstructive uropathy. No masses seen. Abdominal Aorta: Abdominal portion non-dilated. Atherosclerosis is present. Bowel: There is diverticulosis seen in the colon, but no evidence of acute diverticulitis. There is no evidence of bowel obstruction or bowel wall thickening. There is a small hiatal hernia. Appendix is unremarkable. Peritoneal Cavity: No ascites, collection or mesenteric inflammatory response. No free air. Lymph Nodes: Within normal limits. Bones: Within normal limits for the patient's age. Soft Tissues: There is a small fat containing umbilical hernia. PELVIS: Bladder: Symmetric distention, no gross wall thickening. Reproductive Organs: Unremarkable as visualized. Lymph Nodes: Within normal limits. Bones: Within normal limits for the patient's age. IMPRESSION: No acute abdominal or pelvic process. RADIATION DOSE DELIVERED: 1,177.02mGy.cm Total DLP DATA REPOSITORY: All CT scans at this facility are submitted to the National Radiology Data Registry (NRDR) Dose Index Registry (DIR) with the [employer] (A[employer]). RADIATION OPTIMIZATION: All CT scans at this facility use at least one of these dose optimization te chniques: automated exposure control; mA and/or kV adjustment per patient size (includes targeted exa ms where dose is matched to clinical indication); or iterative reconstruction.
[2022-09-01] MEDS: Ondansetron 4 MG/2 ML VIAL IVP (15:23)
[2022-09-01] MEDS: Pantoprazole 40 MG VIAL IVP (15:24)
--- NOTE | 2022-09-01 15:33 | ED.GENADUL_ITS ---
Discharge Plan Disposition Patient Disposition: Home Discharge Details Clinical Impression: GI bleed Primary Care Provider: Mak Mcghee ED Provider: Daisy Hernández Home Meds and New Rx's Prescriptions: New omeprazole 40 mg capsule,delayed release(DR/EC) 80 mg PO DAILY Qty: 30 0RF Rx Instructions: 2 capsules daily as directed Continued omeprazole 20 mg capsule,delayed release(DR/EC) 80 mg PO PRN PRN No Action acetaminophen 325 mg Tablet 650 mg PO Q4H PRN PRNQty: 0 0RF nitroglycerin 0.4 mg tablet, sublingual 0.4 mg sublingual Q5-15M PRNQty: 10 0RF Rx Instructions: do not exceed 3 doses per episode ibuprofen 200 mg Tablet 800 mg PO Q6H PRN Discharge Instructions Instructions: Gastrointestinal Bleeding (ED) Additional Instructions: At this time there is no evidence for need for blood transfusion, active bleeding or concern on your CT. Please return to the ER for any worsening bleeding, dizziness lightheadedness or concerns. You are placed on a follow-up list for general surgery to be seen within the next week to discuss getting an endoscopy or colonoscopy if this continues. Please stay away from anything fried spicy or fatty. Take the omeprazole daily as prescribed. Referrals: Mak Mcghee [Primary Care Provider] - 2 weeks Mary Celestin DO [OSTEOPATHIC DOCTOR] - 5 days Discharge Data Discharge Date/Time-TO BE ENTERED AT DEPARTURE: 09/01/22 18:16 Medical Decision Making <JOSE Reyes - Last Filed: 09/02/22 14:09> Patient is alert and oriented, he is well in appearance and his vitals are stable Given his past medical history of bleeding ulcers, did order CT scan, diagnostic blood work, type and screen, Protonix, IV fluids, and telemetry monitoring Will transition care to Kathy Lehman nurse practitioner pending CT scan and diagnostic blood work <Daisy Hernández NP - Last Filed: 09/01/22 18:59> Patient is alert and oriented, he is well in appearance and his vitals are stable Given his past medical history of bleeding ulcers, did order CT scan, diagnostic blood work, type and screen, Protonix, IV fluids, and telemetry monitoring Will transition care to Kathy Lehman nurse practitioner pending CT scan and diagnostic blood work 1601: SJ: Care assumed from provider (JOSE Reyes) Please see their initial HPI, PE, and documentation. Discussed patient details and case and pending workup and disposition. Patient is hemodynamically stable, and alert and oriented. At the time of signout awaiting labs and CT abdomen pelvis. In short patient is a 57-year-old male with a history of GI bleeding with clots this morning. He does have a past medical history of esophageal bleed and GERD. Per my colleagues report guaiac was negative with brown stool. At this time CBC shows no leukocytosis hemoglobin hematocrit within normal limits, CMP is pending troponin pending and CT. CMP is largely within normal limits, bilirubin slightly elevated 2.8, discussed lab results and CT results with patient. CT within normal limits. I did put patient on care management list for follow-up with general surgery within the next 3 to 5 days. I discussed strict return instructions to return to the ER for any worsening bleeding, dizziness lightheadedness or concerns. Patient remained hemodynamically stable throughout the remainder of his stay. CT shows colonic diverticulosis without diverticulitis. No free air no fluid collection. This text was generated using [employer] dictation system, please disregard any oddities of phrase or misspellings. Imaging Data Radiologic Study: Imaging: CT Scan Radiologist's impression: IMPRESSION: 1. No acute findings. 2. Incidental findings as described. Thank you for allowing us to participate in the care of your patient. Dictated and Authenticated by: Cynthia Virgen MD Lab Data Lab results reviewed: Yes I reviewed the patient's lab results. Labs: Laboratory Tests Range/Units 09/01/22 09/01/22 09/01/22 15:35 15:35 15:35 WBC (4.4-10.8) 10^3/uL 5.27 RBC (4.36-5.78) 10^6/uL 4.82 Hgb (13.5-17.5) g/dL 14.6 Hct (40.0-50.0) % 42.1 MCV (80-95) fL 87 MCH (27.0-33.0) pg 30.3 MCHC (32.0-36.0) % 34.7 RDW (11.8-14.1) % 12.4 Plt Count (130-400) 10^3/uL 196 MPV (8.0-11.0) fL 10.6 Immature Gran % 0.2 Neutrophils % 54.3 Lymphocytes % 33.4 Monocytes % 8.7 Eosinophils % 2.8 Basophils % 0.6 Nucleated RBC % (0.0-0.3) % 0.0 Absolute Neutrophils (1.2-6.7) 10^3/uL 2.86 Absolute Lymphocytes (1.2-3.4) 10^3/uL 1.76 Absolute Monocytes (0.1-0.8) 10^3/uL 0.46 Absolute Eosinophils (0.0-0.7) 10^3/uL 0.15 Absolute Basophils (0.0-0.2) 10^3/uL 0.03 Sodium (136-145) mmol/L 137 Potassium (3.5-5.1) mmol/L 3.6 Chloride (98-107) mmol/L 97 L Carbon Dioxide (21.0-32.0) mmol/L 31.3 Anion Gap (3-11) mmol/L 8.7 BUN (7-18) mg/dL 11 Creatinine (0.70-1.30) mg/dL 1.1 Est GFR (CKD-EPI 2020) (mL/min/1.73m2) 77.33 Glucose (74-106) mg/dL 106 Calcium (8.5-10.1) mg/dL 9.9 Total Bilirubin (0.2-1.0) mg/dL 2.8 H AST (15-37) U/L 36 ALT (16-63) U/L 64 H Alkaline Phosphatase (46-116) U/L 81 Troponin I (<or=60) ng/L Total Protein (6.4-8.2) g/dL 8.5 H Albumin (3.4-5.0) g/dL 4.9 Lipase (16-77) U/L Patient ABO/Rh O Positive Antibody Screen NEGATIVE Range/Units 09/01/22 15:35 WBC (4.4-10.8) 10^3/uL RBC (4.36-5.78) 10^6/uL Hgb (13.5-17.5) g/dL Hct (40.0-50.0) % MCV (80-95) fL MCH (27.0-33.0) pg MCHC (32.0-36.0) % RDW (11.8-14.1) % Plt Count (130-400) 10^3/uL MPV (8.0-11.0) fL Immature Gran % Neutrophils % Lymphocytes % Monocytes % Eosinophils % Basophils % Nucleated RBC % (0.0-0.3) % Absolute Neutrophils (1.2-6.7) 10^3/uL Absolute Lymphocytes (1.2-3.4) 10^3/uL Absolute Monocytes (0.1-0.8) 10^3/uL Absolute Eosinophils (0.0-0.7) 10^3/uL Absolute Basophils (0.0-0.2) 10^3/uL Sodium (136-145) mmol/L Potassium (3.5-5.1) mmol/L Chloride (98-107) mmol/L Carbon Dioxide (21.0-32.0) mmol/L Anion Gap (3-11) mmol/L BUN (7-18) mg/dL Creatinine (0.70-1.30) mg/dL Est GFR (CKD-EPI 2020) (mL/min/1.73m2) Glucose (74-106) mg/dL Calcium (8.5-10.1) mg/dL Total Bilirubin (0.2-1.0) mg/dL AST (15-37) U/L ALT (16-63) U/L Alkaline Phosphatase (46-116) U/L Troponin I (<or=60) ng/L < 50 Total Protein (6.4-8.2) g/dL Albumin (3.4-5.0) g/dL Lipase (16-77) U/L 19 Patient ABO/Rh Antibody Screen HPI <JOSE Reyes - Last Filed: 09/02/22 14:09> General Date/Time Provider Initiated Documentation: 09/01/22 14:10 . HPI Narrative: This 57-year-old male presents with epigastric pain for the past 2 weeks, history of bleeding ulcers in the past when patient drank alcohol more regularly. States that this morning at 3:00 he woke with severe pain and had 2 episodes of vomiting blood. He states his blood had clots in it. He denies any chest pain or shortness of breath. He denies any weakness or dizziness. He drinks approximately 3-6 beers a week per patient. Denies any chest pain or shortness of breath. He has not had any additional episodes since that time and denies any black tarry stools. Related Data Home Medications Medication Instructions Recorded Confirmed acetaminophen 325 mg tablet 650 mg PO Q4H PRN PRN #0 tabs 01/18/22 04/23/22 nitroglycerin 0.4 mg sublingual 0.4 mg sublingual Q5-15M PRN #10 01/18/22 09/01/22 tablet tabs ibuprofen 200 mg tablet 800 mg PO Q6H PRN 09/01/22 09/01/22 omeprazole 20 mg capsule,delayed 80 mg PO PRN PRN 09/01/22 09/01/22 release omeprazole 40 mg capsule,delayed 80 mg PO DAILY GERD #30 caps 09/01/22 release Previous Rx's Medication Instructions Recorded acetaminophen 325 mg tablet 650 mg PO Q4H PRN PRN #0 tabs 01/18/22 nitroglycerin 0.4 mg sublingual 0.4 mg sublingual Q5-15M PRN #10 01/18/22 tablet tabs omeprazole 40 mg capsule,delayed 80 mg PO DAILY GERD #30 caps 09/01/22 release Allergies Allergy/AdvReac Type Severity Reaction Status Date / Time Opioids - Morphine Analogues Allergy Unverified 09/01/22 16:16 General Stated Complaint: Abd Prob URSULA: 3 PFSH <JOSE Reyes - Last Filed: 09/02/22 14:09> All Active Problems GI bleed (Chronic) Atypical angina (Acute) Herniated disc (Acute) Medical History (Updated 09/01/22 @ 18:05 by Daisy Hernández NP) Alcohol dependence Atypical chest pain Barretts esophagus (~07/2019) Chronic anxiety Chronic depression Chronic low back pain Cocaine abuse in remission Colorectal polyps Cubital tunnel syndrome on right (07/30/16) Diverticulitis Diverticulosis Esophagitis Gastritis and duodenitis GERD (gastroesophageal reflux disease) Hiatal hernia Obesity Pain, joint, shoulder, right Rectal bleeding Surgical History H/O esophagogastroduodenoscopy (~08/05/19) History of shoulder surgery Rotator cuff repair right shoulder. S/P colonoscopy (~08/05/19) Social History Smoking/Tobacco Use Status: Never Smoking risk assessment performed?: Yes Alcohol Intake: current Alcohol Intake frequency: a few times a week Alcohol type: beer Details: Decreased his drinking 4 weeks ago from 3-4 beers a night to 1 beer once wk Drug use: Occasionally Substance use type: marijuana and crack/cocaine Details: pt states last used cocaine and marijuana last night Household members: spouse Housing: house current occupation: self employed Do you feel safe at home: Yes Do you feel safe in your relationship?: Yes Additional Social history: unable to assess privately Exam <JOSE Reyes Last Filed: 09/02/22 14:09> Const General: cooperative, comfortable and no acute distress HENMT Head: normal to inspection Resp Effort & Inspection: normal respiratory effort Auscultation: clear to auscultation bilaterally Cardio Rate: regular rate Rhythm: regular rhythm GI Other: Tenderness to your epigastrium No CVA tenderness Other: Guaiac negative brown stool Skin General skin exam: no rashes or lesions noted Neuro General: patient alert and patient oriented x3 Course <JOSE Reyes Last Filed: 09/02/22 14:09> Vital Signs Vital signs: Vital Signs Temperature 37.1 C 09/01/22 14:15 Pulse 66 09/01/22 14:15 Respiratory Rate 15 09/01/22 14:15 Pulse Oximetry 98 09/01/22 14:15 Temperature 37.1 C 09/01/22 14:15 Temperature Source Oral 09/01/22 14:15 Pulse 66 09/01/22 14:15 Respiratory Rate 15 09/01/22 14:15 Respiratory Effort Normal, Non-Labored 09/01/22 15:01 Blood Pressure Position Sitting 09/01/22 14:15 Pulse Oximetry 98 09/01/22 14:15 Oxygen Delivery Method Room Air 09/01/22 14:15 Oxygen Flow Rate 0 09/01/22 14:15 Pain Level 3 09/01/22 15:01 Sign Out <JOSE Reyes Last Filed: 09/02/22 14:09> Sign Out Data: Sign Out Comment: pending ct and blood work Last updated by Mago Hartmann PA at 09/01/22 15:36 PAWSS <JOSE Reyes - Last Filed: 09/02/22 14:09> Have you Been Recently Intoxicated or Drunk Within the Last 30 days?: No Have you Ever Experienced Previous Episodes of Alcohol Withdrawal?: No Have you ever Experienced Withdrawal Seizures?: No Have you ever Experienced Delirium Tremens(DT)s?: No Have you ever undergone Alcohol Rehabilitation Treatment (i.e, inpt ot outpatient treatment programs)?: No Have you ever Experienced Blackouts?: No Have you ever Combined Alcohol with other Downers within the last 90 days?: No Have you ever Combined Alcohol with any other Substance of Abuse during the last 90 days?: Yes Positive Blood Alcohol level on Presentation? [PCS.BAL]: No Evidence of Increased Autonomic Activity (i.e. HR>120, tremor, sweating, agitation, nausea)?: No Result: 2 <Daisy Hernández NP - Last Filed: 09/01/22 18:59> Result: 2
[2022-09-01] MEDS: Lactated Ringers 1,000 ML 1000 ML IV (15:46)
[2022-09-01 15:50] LABS: Abs Immature Grans 0.01 10^3/uL (0.0-0.06); Absolute Basophil Count 0.03 10^3/uL (0.0-0.2); Absolute Eosinophil Count 0.15 10^3/uL (0.0-0.7); Absolute Lymphocyte Count 1.76 10^3/uL (1.2-3.4); Absolute Monocyte Count 0.46 10^3/uL (0.1-0.8); Absolute Neutrophil Count 2.86 10^3/uL (1.2-6.7); Basophils % 0.6; Eosinophils % 2.8; HCT 42.1 % (40.0-50.0); HGB 14.6 g/dL (13.5-17.5); Immature Grans % 0.2; Lymphocytes % 33.4; MCH 30.3 pg (27.0-33.0); MCHC 34.7 % (32.0-36.0); MCV 87 fL (80-95); MPV 10.6 fL (8.0-11.0); Monocytes % 8.7; Neutrophils % 54.3; Platelet Count 196 10^3/uL (130-400); RBC 4.82 10^6/uL (4.36-5.78); RDW 12.4 % (11.8-14.1); RDW-SD 39.8 fL; WBC 5.27 10^3/uL (4.4-10.8)
[2022-09-01 16:08] LABS: ALT 64 U/L (16-63); AST 36 U/L (15-37); Albumin 4.9 g/dL (3.4-5.0); Alkaline Phosphatase 81 U/L (46-116); Anion Gap 8.7 mmol/L (3-11); BUN 11 mg/dL (7-18); Bilirubin, Total 2.8 mg/dL (0.2-1.0); CO2 31.3 mmol/L (21.0-32.0); CREATININE 1.1 mg/dL (0.70-1.30); Calcium 9.9 mg/dL (8.5-10.1); Chloride 97 mmol/L (98-107); Estimated GFR 77.33 (mL/min/1.73m2); Glucose 106 mg/dL (74-106); Potassium 3.6 mmol/L (3.5-5.1); Sodium 137 mmol/L (136-145); Total Protein 8.5 g/dL (6.4-8.2)
[2022-09-01 16:13] LABS: Lipase 19 U/L (16-77); Troponin I < 50 ng/L (<or=60)
[2022-09-01] MEDS: Omnipaque 350 MG/ML 500 ML BTL-Imaging package IJ (17:13)
[2022-09-01] MEDS: Normal Saline - Diluent 50 ML VIAL IJ (17:14)
--- NOTE | 2022-09-01 17:44 | DI.VRAD_ITS ---
PROCEDURE INFORMATION: Exam: CT Abdomen And Pelvis With Contrast Exam date and time: 09/01/2022 17:04 Age: 57 years old Clinical indication: Abdominal pain; Patient HX: Epigastric pain, hematemesis TECHNIQUE: Imaging protocol: Computed tomography of the abdomen and pelvis with contrast. COMPARISON: CT Abdomen^ROUTINE ABDOMEN PELVIS WITH CONTRAST (Adult) 01/10/2018 14:50 FINDINGS: Lungs: Subcentimeter right lower lobe pulmonary nodule statistically most likely benign. Diaphragm: Tiny hiatal hernia. Liver: Fatty liver with no mass lesions. Gallbladder and bile ducts: No calcified stones. No ductal dilation. Pancreas: No ductal dilation. No masses. Spleen: No splenomegaly or focal lesions. Adrenal glands: No mass. Kidneys and ureters: No hydronephrosis. No renal masses. Stomach and bowel: Colonic diverticulosis without diverticulitis. No focal pathology in the small bowel. Appendix: No evidence of appendicitis. Intraperitoneal space: No free air. No significant fluid collection. Vasculature: No abdominal aortic aneurysm. Lymph nodes: No significantly enlarged lymph nodes. Urinary bladder: Unremarkable as visualized. Reproductive: Unremarkable as visualized. Bones/joints: Degenerative changes in the spine. No acute fracture or subluxation. Soft tissues: No suspicious lesions. IMPRESSION: 1. No acute findings. 2. Incidental findings as described. Dictated and Authenticated by: Cynthia Virgen MD. Ordering:JIGAR Mercedes MD
--- NOTE | 2022-09-01 18:04 | NUR.NOTE ---
Per Daisy Hernández, referral to [facility] for bloody stools in 3-5 days. Put the referral in the care manger's box for f/u assistance.Nursing Note:
== END 2022-09-01 18:16 | disposition home or self-care (01) ==
PROVIDERS: Physician Assistant; Emergency Provider Registered Nurse Emergency; PCP Family Medicine
DX: K92.2 Gastrointestinal hemorrhage, unspecified (principal); E80.7 Disorder of bilirubin metabolism, unspecified
CPT/HCPCS: 80053; 83690; 86850; 86900; 86901; 93005; 96361; 96374; 96375; 99285; 74177; 84484; 85025; 93010; 99284; J2405

== ENCOUNTER 2022-12-17 11:06 | Day surgery (SDC) | payer BC, SELFPAY ==
--- NOTE | 2022-12-17 08:23 | W.PM.DS.N ---
Date of service: 12/17/22 Time of Service: 14:00 DS: Diagnosis Discharge Diagnosis (1) Alcohol dependence: (2) Chronic anxiety: (3) Chronic depression: (4) Chronic low back pain: (5) Cocaine abuse in remission: (6) Colorectal polyps: (7) Diverticulosis: Asessment and Plan: The patient is seen and examined after their colonoscopy.? The patient has been able to pass gas.? They are not having abdominal pain.? They have been able to tolerate liquids and a snack.? They do not have any nausea or vomiting.? They are not having any chest pain or shortness of breath.??? They are not having any rectal bleeding. Their vital signs have been stable-see nursing notes. We discussed findings during their colonoscopy, and any biopsies that were done/polyps that were removed. The patient will be sent a letter with any biopsy results, and when to repeat the colonoscopy.-see discharge instructions. Patient was given explicit instructions to follow-up regarding colonoscopy-refer to discharge instructions.? 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: Status: Acute (16) Antral ulcer: Status: Acute Discharge Plan Disposition Patient Disposition: Home Condition: Good Discharge Details Reason For Visit: Stomach and colon scope Attending Provider: Mary Celestin Primary Care Provider: Mak Mcghee Mondamin Meds and New Rx's Prescriptions: New pantoprazole [Protonix] 40 mg tablet,delayed release (DR/EC) 40 mg PO DAILY Qty: 90 4RF Continued acetaminophen 325 mg Tablet 650 mg PO Q4H PRN PRNQty: 0 0RF nitroglycerin 0.4 mg tablet, sublingual 0.4 mg sublingual Q5-15M PRNQty: 10 0RF Rx Instructions: do not exceed 3 doses per episode Discontinued polyethylene glycol 3350 17 gram/dose powder 238 g PO ONCE Qty: 238 0RF Rx Instructions: take per colonoscopy instructions bisacodyl [Dulcolax (bisacodyl)] 5 mg tablet,delayed release (DR/EC) 5 mg PO ONCE Qty: 4 0RF Rx Instructions: take per colonoscopy instructions ibuprofen 200 mg Tablet 800 mg PO Q6H PRN omeprazole 20 mg capsule,delayed release(DR/EC) 80 mg PO PRN PRN Discharge Instructions Additional Instructions: DSU Colonoscopy Post-Op Instructions Instructions for Everyone who is given Anesthesia: For your safety, please do the following for the next twenty-four (24) hours: *Do Not operate a motor vehicle (car, truck, motorcycle, etc.) *Do Not drink alcoholic beverages or use any recreational drugs for the first 24 hours or while taking pain medications. The medications in your body may have a reaction that can be dangerous. *Do Not make any important decisions or sign any important papers. Findings: Follow up: 1. No lifting over 20 pounds or strenuous activity for the first 24 hours after your procedure. After 24 hours there are no restrictions on your activity but you may feel fatigued for a few days. 2. After you arrive home you may have a light meal and return to your normal diet as you can tolerate it without feeling sick to your stomach. 3. You may have a bloated, gaseous feeling in your belly (abdomen) after a colonoscopy. Passing gas and belching will help. Walking or lying down on your left side with your knees flexed may relieve the discomfort. Call the office at [phone] (Office) or [phone] (Hospital) right away if you notice any of the following: a.Vomiting of blood or ?coffee ground stools?. b.Rectal bleeding 1Tbsp, blood clots or continuous bleeding. c.Severe belly (abdominal) pain. d.A hard distended belly (abdomen) and an inability to pass gas. 4. Please don?t expect to have a normal BM (bowel movement) for 2-3 days after your procedure. 5. If there are questions regarding the findings of your procedure, please contact your doctor 6. If you are unable to contact your doctor with a problem, contact the hospital at [phone]. 7. Continue all your regular medications unless directed otherwise. I understand the above instructions and have no questions. 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 states did cardiac testing stated came back normal Barretts esophagus (~07/2019) Chronic anxiety Chronic depression Chronic low back pain Cocaine abuse in remission Colorectal polyps Cubital tunnel syndrome on right (07/30/16) pt. denies Diverticulitis Diverticulosis Esophagitis Gastritis and duodenitis GERD (gastroesophageal reflux disease) Hiatal hernia Obesity Pain, joint, shoulder, right Rectal bleeding Surgical History (Updated 12/17/22 @ 11:32 by Naheed Boudreaux) H/O esophagogastroduodenoscopy (~08/05/19) History of shoulder surgery Rotator cuff repair right shoulder. Hx of shoulder surgery R ight side S/P colonoscopy (~08/05/19) Social History Smoking/Tobacco Use Status: Never Smoking risk assessment performed?: Yes Alcohol Intake: current Alcohol Intake frequency: holidays/special occasions only Alcohol type: beer Details: Decreased his drinking 4 weeks ago from 3-4 beers a night to 1 beer once wk Drug use: Occasionally Substance use type: marijuana and crack/cocaine Details: marijuana 12/07/22 Pt. states cocaine 5-6 weeks ago Household members: spouse Housing: house current occupation: self employed Do you feel safe at home: Yes Do you feel safe in your relationship?: Yes Additional Social history: unable assess privately
--- NOTE | 2022-12-17 09:43 | W.COLOREPORT ---
Date of service: 12/17/22 Time of Service: 09:43 Colonoscopy Report Date of procedure: 12/17/22 Pre-op diagnosis general: GI bleeding/history of diverticula Surgeon: Mary Celestin Anesthesia Type: General:No Airway Complications: None Disposition: same day Prep: Miralax/Dulcolax Retraction Time: 10 Procedure Description: After informed consent was obtained the patient was taken to the procedure room and placed in a left decubitous position. Monitors were applied and a time out was done. The patients name, date of , procedure, allergies to medications and metal in their body was reviewed. The patient was then sedated. Once sedated and comfortable a rectal exam was done. External exam reveals small noninflamed external hemorrhoids. Internal exam revealed a normal sphincter tone and no palpable masses. The prostate normal. The scope was then introduced and retrofelexed. No internal hemorrhoids were identified. The scope was then advanced to the cecum without difficulty. The TI and appendiceal orifice were identified. The prep was BBPS 2 in all segments for total of 6. The scope was then slowly retracted over 10 minutes back into the rectum. He has few small mouth diverticuli discussed confined to the cecum sigmoid colon. There is no signs of active bleeding or infection. He has a 0.75 cm pedunculated polyp in the rectum. This is removed with a cold snare. All specimen is retrieved and no bleeding is noted. The scope was removed and the patient was woken up and taken back to Same day surgery in stable condition. The patient tolerated the procedure well and there were no immediate complications. Follow up: The patient should follow up in 5-7, path pending years unless they develop changes in bowel habits or other new gastrointestinal complaints.
--- NOTE | 2022-12-17 09:45 | HPE_ITS ---
Date of service: 12/17/22 Time of Service: 13:03 Assessment and Plan Assessment and plan (1) Alcohol dependence: (2) Barretts esophagus: (3) Chronic anxiety: (4) Chronic depression: (5) Colorectal polyps: (6) Diverticulosis: Assessment and plan: EGD and CE today -check labs Informed consent is obtained for the procedural (explained in simple layman's terms that the pt. and/or family could understand) explaining risks vs benefits and alternatives to the procedure and consequences if we do not do the procedure and need/rational for the procedure. Risks include but are not limited to: bleeding, infection, perforation of esophagus, stomach, colon, small intestines, bronchus or trachea, or PTX. This would necessitate emergency surgery to repair the damage w/ possible ostomy; and other associated complications w/ the required surgery. Also complications of anesthesia including aspiration, WV/CVA/. (7) Gastritis and duodenitis: (8) GERD (gastroesophageal reflux disease): Qualifiers: Esophagitis presence: with esophagitis (9) Hiatal hernia: (10) Obesity: (11) Rectal bleeding: History of Present Illness Narrative: Office visit 09/04: he is referred from the emergency department, where he was seen for gastrointestinal bleeding.? His hemoglobin was normal, and he underwent a CAT scan of the pelvis which was also normal.? Since that visit, he tells me he has been using omeprazole as needed for upper abdominal discomfort.? He prefers to avoid standing medications.? He tells me that his symptoms are similar to those experienced in the past.? His major complaint over the past few days regards black stools.? He tells me that he has been having several bowel movements per day that are dark black.? He denies any recent bright red blood per rectum, although he does experience from time to time. It looks like he underwent upper and lower endoscopy in 2019, and was diagnosed with diverticulosis, as well as gastritis.? Pathology from the upper endoscopy was most significant for reactive gastropathy as well as intestinal metaplasia a t the GE junction.? Pathology from the lower endoscopy describes a tubular adenomas. His other past medical history is most relavent for aginal tpye pain.? He has undergone a stress myocardial perfusion study which was normal. ?explained the challenges of localizing gastrointestinal bleeding.? Particularly in a patient who has a history of gastritis, as well as diverticulosis.? And while I appreciate his preference to avoid standing medications, I reiterated that if the source is not yesterday, then standing proton pump inhibition therapy is probably the most effective treatment. At this point, I think direct visualization through EGD and the is the most reasonable diagnostic plan.? I explained the risks and benefits of those procedures, who provided informed consent today. -Pt denies any further bleeding. Denies pain or difficulty w/ swallowing. He has been losing wt. ETOH- not daily. none for a couple weeks. Pt has been having diarrhea. When has diarrhea he will go 2-3 times a day. Than he may not have any stools for 2-3 days. He has been eating. Patient is here today for colonoscopy & EGD for GI bleeding he had in august. Repeat labs are being done today. ??? They completed a bowel prep with just a clear yellow residual effluent.? They not having any chest pain or shortness of breath, currently.? They are not experiencing any fever or chills.? They deny any productive cough or upper respiratory tract infection signs or symptoms.? They are not having abdominal pain, or nausea and vomiting.? They have not had any changes in medications, past medical history or past surgical history since previously being seen in the office. They have not had any accidents or have been in the ER since the clinic pre-operative evaluation. ??I reviewed the p rocedure with the patient today, including risks and benefits of the procedure, and what they could expect at home for recovery.? All questions are answered to the patient?s satisfaction today, and they are stable to proceed with the proposed procedure. Patient had a stress test in March 2022 which showed a EF of 58% and no fixed or reversible defects. See [facility]. Review of Systems All systems reviewed & are unremarkable except as noted in HPI and below PFSH All Active Problems Herniated disc (Acute) Atypical angina (Acute) Medical History Alcohol dependence Atypical chest pain Pt. states did cardiac testing stated came back normal Barretts esophagus (~07/2019) Chronic anxiety Chronic depression Chronic low back pain Cocaine abuse in remission Colorectal polyps Cubital tunnel syndrome on right (07/30/16) pt. denies Diverticulitis Diverticulosis Esophagitis Gastritis and duodenitis GERD (gastroesophageal reflux disease) Hiatal hernia Obesity Pain, joint, shoulder, right Rectal bleeding Surgical History (Updated 12/17/22 @ 11:32 by Naheed Boudreaux) H/O esophagogastroduodenoscopy (~08/05/19) History of shoulder surgery Rotator cuff repair right shoulder. Hx of shoulder surgery R ight side S/P colonoscopy (~08/05/19) Social History Smoking/Tobacco Use Status: Never Smoking risk assessment performed?: Yes Alcohol Intake: current Alcohol Intake frequency: holidays/special occasions only Alcohol type: beer Details: Decreased his drinking 4 weeks ago from 3-4 beers a night to 1 beer once wk Drug use: Occasionally Substance use type: marijuana and crack/cocaine Details: marijuana 12/07/22 Pt. states cocaine 5-6 weeks ago Household members: spouse Housing: house current occupation: self employed Do you feel safe at home: Yes Do you feel safe in your relationship?: Yes Additional Social history: unable assess privately Meds Allergies and Home Medications Allergies Allergy/AdvReac Type Severity Reaction Status Date / Time Opioids - Morphine Analogues Allergy Severe Unverified 12/17/22 11:29 Home Medications Medication Instructions Recorded Confirmed Type acetaminophen 325 mg tablet 650 mg PO Q4H PRN PRN #0 tabs 01/18/22 12/17/22 Rx nitroglycerin 0.4 mg sublingual 0.4 mg sublingual Q5-15M PRN #10 01/18/22 12/17/22 Rx tablet tabs ibuprofen 200 mg tablet 800 mg PO Q6H PRN 09/01/22 12/17/22 History omeprazole 20 mg capsule,delayed 80 mg PO PRN PRN 09/01/22 12/17/22 History release Exam Const General: cooperative, comfortable and no acute distress Nutritional Appearance: average body habitus Orientation: alert, awake and oriented x3 Other: PHYSICAL EXAM GENERAL APPEARANCE: Alert, healthy appearance, oriented, x 3,? in no acute distress HYDRATION: Well hydrated HEAD, EYES, EARS, NECK, THROAT: Head is normocephalic, pupils equal, round, reactive to light and accommodation, ocular movement intact, sclera clear and no jaundice. ? LUNGS: normal respiration/normal chest excursion. ?Clear to auscultation bilaterally. ?No wheeze. ?HEART: Regular rate and rhythm. no murmurs ABDOMEN: soft and non-tender to palpation.? Normal bowel sounds.? Results Labs 12/17/22 11:35 12/17/22 11:35 Time Spent Time spent with Patient: <40 minutes Time was spent: preparing to see the patient(eg.review tests), obtaining and/or reviewing separately otained hiistory, ordering medications,tests, procedures, referring, communicating with other health animal care provider, indepentently interpreting results, counseling the patient and care coordination
--- NOTE | 2022-12-17 09:48 | W.ANESPRE ---
General Info Date of Service Date Performed: 12/17/22 Height: 6 ft Weight: 104.326 kg Body Mass Index (BMI): 31.1 Surgical Procedure: Operation Date: 12/17/22 12:05 Proposed Procedure Side Surgeon p Colonoscopy/Gastroscopy Mary Celestin DO Meds Allergies and Home Medications Allergies Allergy/AdvReac Type Severity Reaction Status Date / Time Opioids - Morphine Analogues Allergy Severe Unverified 12/17/22 11:29 Home Medication Medication Instructions Recorded acetaminophen 325 mg tablet 650 mg PO Q4H PRN PRN #0 tabs 01/18/22 nitroglycerin 0.4 mg sublingual 0.4 mg sublingual Q5-15M PRN #10 01/18/22 tablet tabs ibuprofen 200 mg tablet 800 mg PO Q6H PRN 09/01/22 omeprazole 20 mg capsule,delayed 80 mg PO PRN PRN 09/01/22 release Current Visit Medications: Current Medications Generic Name Dose Route Start Last Admin Trade Name Freq PRN Reason Stop Dose Admin Hyoscyamine Sulfate 0.125 mg 12/17/22 10:10 Hyoscyamine 0.125 Mg Sl/Oral/Chew SL 01/16/23 10:09 DIRECTED PRN Ringer's Solution 1,000 mls @ 80 mls/hr 12/17/22 06:00 IV 12/17/22 23:59 INFUSION [facility] IV Miscellaneous Supplies 1 each 12/17/22 06:00 Iv Access IV 12/17/22 23:59 DIRECTED TELLY Ondansetron HCl 4 mg 12/17/22 10:10 Ondansetron 4 Mg/2 Ml Vial IVP 01/16/23 10:09 Q4H PRN PRN Nausea / Vomiting Sodium Chloride 0 ml 12/17/22 06:00 Normal Saline Flush 10 Ml Syr IV 12/17/22 23:59 PRN PRN Sodium Chloride 0 ml 12/17/22 06:00 Normal Saline 10 Ml Vial IJ 12/17/22 23:59 DIRECTED PRN Sterile Water 0 ml 12/17/22 06:00 Water,Injection,Sterile 10 Ml Vial IJ 12/17/22 23:59 DIRECTED PRN PFSH Active Problems Active Problems: Problem Status Onset Code Herniated disc Atypical angina I20.8 Medical History Medical History Alcohol dependence Atypical chest pain Pt. states did cardiac testing stated came back normal Barretts esophagus (~07/2019) Chronic anxiety Chronic depression Chronic low back pain Cocaine abuse in remission Colorectal polyps Cubital tunnel syndrome on right (07/30/16) pt. denies Diverticulitis Diverticulosis Esophagitis Gastritis and duodenitis GERD (gastroesophageal reflux disease) Hiatal hernia Obesity Pain, joint, shoulder, right Rectal bleeding Surgical History Surgical History (Updated 12/17/22 @ 11:32 by Naheed Boudreaux) H/O esophagogastroduodenoscopy (~08/05/19) History of shoulder surgery Rotator cuff repair right shoulder. Hx of shoulder surgery R ight side S/P colonoscopy (~08/05/19) Tobacco Smoking/Tobacco Use Status: Never Alcohol Alcohol Intake: current Alcohol intake frequency: holidays/special occasions only Alcohol type: beer Details: Decreased his drinking 4 weeks ago from 3-4 beers a night to 1 beer once wk Substance Use Substance use: Occasionally Substance use type: marijuana and crack/cocaine Details: marijuana 12/07/22 Pt. states cocaine 5-6 weeks ago Vital Signs and Lab Results Lab Results 12/17/22 11:35 12/17/22 11:35 Blood Type / Crossmatch: No Data to Display Complete Blood Count: White Blood Count 4.99 10^3/uL (4.4-10.8) 12/17/22 11:35 Red Blood Count 4.91 10^6/uL (4.36-5.78) 12/17/22 11:35 Hemoglobin 14.7 g/dL (13.5-17.5) 12/17/22 11:35 Hematocrit 43.1 % (40.0-50.0) 12/17/22 11:35 Platelet Count 214 10^3/uL (130-400) 12/17/22 11:35 Complete Metabolic Panel: Sodium 140 mmol/L (136-145) 12/17/22 11:35 Potassium 4.1 mmol/L (3.5-5.1) 12/17/22 11:35 Chloride 103 mmol/L (98-107) 12/17/22 11:35 Carbon Dioxide 25.7 mmol/L (21.0-32.0) 12/17/22 11:35 BUN 9 mg/dL (7-18) 12/17/22 11:35 Creatinine 1.1 mg/dL (0.70-1.30) 12/17/22 11:35 Est GFR (CKD-EPI 2020) 77.33 (mL/min/1.73m2) 12/17/22 11:35 Calcium 9.6 mg/dL (8.5-10.1) 12/17/22 11:35 Albumin 4.4 g/dL (3.4-5.0) 12/17/22 11:35 Glucose 101 mg/dL (74-106) 12/17/22 11:35 Liver Function Panel: Alanine Aminotransferase (ALT/SGPT) 87 U/L (16-63) H 12/17/22 11:35 Aspartate Amino Transf (AST/SGOT) 39 U/L (15-37) H 12/17/22 11:35 Gamma Glutamyl Transpeptidase 98 U/L (15-85) H 12/17/22 11:35 Coagulation Panel: INR International Normalized Ratio 1.0 (0.9-1.1) 12/17/22 11:35 Prothrombin Time 10.0 sec (9.3-11.0) 12/17/22 11:35 Cardiac Panel: No Data to Display Arterial Blood Gas: No Data to Display Venous Blood Gas: No Data to Display Pancreas Panel: No Data to Display Thyroid Panel: No Data to Display Infectious Disease: No Data to Display Blood Cultures: No Data to Display Toxicology Panel: No Data to Display Imaging and Studies Imaging and Studies Study information below may be from another EMR and interpreted by another provider. Please see original notes in EMR for more complete details. EKG Summary: 09/16: sinus sean. Stress Test Summary: 05/17: resting EKG WNL, 10.16 METS, no EKG evidence of ischemia. Normal perfusion, LVEF 52%. Echocardiogram Summary: 01/15: LVEF 60%, mildly dilated ascending Ao, PAS 25 mmhg. Anesthesia Assessment and Plan Anesthesia History Personal History: No History of Anesthesia Complications Family History: No Family History of Anesthesia Complications Exercise Tolerance Exercise Tolerance: Metabolic Equivalents>4 Cardiac & Pulmonary Exam Cardiac Exam: Normal S1/S2 Heart Sounds Pulmonary Exam: Clear Bilateral Breath Sounds Implantable Cardiac Device Does patient have a Pacemaker or an ICD?: No Airway Exam Known Difficult Airway: No Mallampati Class: 2 Mouth Opening: Normal (> 3cm) Thyromental Distance: Greater than 3 cm Facial Hair: Full Subramanian Neck Range of Motion: Full ROM Neck Circumference: Normal Teeth Condition: Normal Dentition ASA Classification ASA Score: ASA 2 Emergency Case?: No NPO Status NPO Status: NPO Clears >2 hours, Solids >8 hours Anesthesia Plan Resuscitation Status: Full Code Anesthesia Technique: General Anesthesia Airway Planned: Natural Airway Monitors Used: Standard Monitors Preoperative Comments:: 57 yo male for EGD/colo. Sig PMHx: anxiety, GERD/esophagitis, never smoker, occ EtOH. occ cannabis/crack/cocaine. Previous Anes: - colo/egd, ketamine/prop, natural airway, no issues.
[2022-12-17 11:35] VITALS: BP 119/88; PULSE 63; RESP 16; TEMP 36.6; O2SAT 97
[2022-12-17 11:44] LABS: Abs Immature Grans 0.01 10^3/uL (0.0-0.06); Absolute Basophil Count 0.03 10^3/uL (0.0-0.2); Absolute Eosinophil Count 0.15 10^3/uL (0.0-0.7); Absolute Lymphocyte Count 1.76 10^3/uL (1.2-3.4); Absolute Monocyte Count 0.31 10^3/uL (0.1-0.8); Absolute Neutrophil Count 2.73 10^3/uL (1.2-6.7); Basophils % 0.6; HCT 43.1 % (40.0-50.0); HGB 14.7 g/dL (13.5-17.5); Immature Grans % 0.2; Lymphocytes % 35.3; MCH 29.9 pg (27.0-33.0); MCHC 34.1 % (32.0-36.0); MCV 88 fL (80-95); MPV 10.3 fL (8.0-11.0); Monocytes % 6.2; Neutrophils % 54.7; Platelet Count 214 10^3/uL (130-400); RBC 4.91 10^6/uL (4.36-5.78); RDW 12.3 % (11.8-14.1); RDW-SD 39.3 fL; WBC 4.99 10^3/uL (4.4-10.8)
[2022-12-17] MEDS: Lactated Ringers 1,000 ML 80 ML IV (11:50)
[2022-12-17 11:59] LABS: ALT 87 U/L (16-63); AST 39 U/L (15-37); Albumin 4.4 g/dL (3.4-5.0); Alkaline Phosphatase 82 U/L (46-116); Anion Gap 11.3 mmol/L (3-11); BUN 9 mg/dL (7-18); Bilirubin, Total 1.9 mg/dL (0.2-1.0); CO2 25.7 mmol/L (21.0-32.0); CREATININE 1.1 mg/dL (0.70-1.30); Calcium 9.6 mg/dL (8.5-10.1); Chloride 103 mmol/L (98-107); Estimated GFR 77.33 (mL/min/1.73m2); GGT 98 U/L (15-85); Glucose 101 mg/dL (74-106); Potassium 4.1 mmol/L (3.5-5.1); Sodium 140 mmol/L (136-145); Total Protein 8.1 g/dL (6.4-8.2)
[2022-12-17 12:39] VITALS: BMI 31.1
--- NOTE | 2022-12-17 13:15 | STOM_PTH ---
PATIENT: Kristian Morgan LOC: [facility] U#:[id number] AGE/SX: 57/M ROOM: RE12/17/[address]: Mary Celestin : 1965 BED: DIS: 12/17/2022 SPEC #: [id number] RECD: 12/17/22 18:36 STATUS: OZIEL REQ #: [id number] RAJNI: 12/17/22 13:[address]: Mary Celestin DEPT: Surgical Specimen RECD BY: Mago He ENTERED: 12/17/22 18:42 SP TYPE: STOMACH OTHR DR: Mak Mcghee Tissues: 1 - BIOPSY BOWEL 2 - BIOPSY BOWEL 3 - STOMACH BIOPSY 4 - STOMACH BIOPSY 5 - STOMACH BIOPSY 6 - ESOPHAGUS BIOPSY 7 - ESOPHAGUS BIOPSY 8 - BIOPSY BOWEL Procedures: GROSS AND MICRO LEVEL 4 Comments: [id number]
[2022-12-17 13:50] VITALS: BP 110/76; PULSE 55; RESP 18; TEMP 36.2; O2SAT 97
--- NOTE | 2022-12-17 13:58 | W.ANESPOSTOP ---
Postoperative Evaluation Date, Time and Location Date Performed: 12/17/22 Time Performed: 13:58 Patient Location: Day Surgery Unit Vital Signs Most Recent Imported Vital Signs: Most Recent Vital Signs Temp Pulse Resp BP Pulse Ox 36.6 C 63 16 119/88 97 12/17/22 11:35 12/17/22 11:35 12/17/22 11:35 12/17/22 11:35 12/17/22 11:35 Pain Score Most Recent Pain Score: Most Recent Pain Score Pain Level 0 12/17/22 11:35 Assessment Mental Status: Awake (Alert & Oriented to Patient Baseline) Airway and Respiratory Function: Patent airway with normal (patient baseline) respiratory exam Cardiovascular Function: Hemodynamically Stable Hydration Status: Adequately Hydrated Nausea & Vomiting: No Nausea or Vomiting Pain: Pt. Denies Any Pain Peripheral Nerve Block: Patient did not receive a nerve block
[2022-12-17 14:20] VITALS: BP 119/76; PULSE 54; RESP 16; TEMP 36.3; O2SAT 98
--- NOTE | 2022-12-17 14:45 | PDOC.DSDIS_ITS ---
Date of service: 12/17/22 Time of Service: 14:45 Discharge Plan Disposition Patient Disposition: Home Condition: Good Discharge Details Reason For Visit: Stomach and colon scope Attending Provider: Mary Celestin Primary Care Provider: Mak Mcghee Home Meds and New Rx's Prescriptions: New pantoprazole [Protonix] 40 mg tablet,delayed release (DR/EC) 40 mg PO DAILY Qty: 90 4RF Continued acetaminophen 325 mg Tablet 650 mg PO Q4H PRN PRNQty: 0 0RF nitroglycerin 0.4 mg tablet, sublingual 0.4 mg sublingual Q5-15M PRNQty: 10 0RF Rx Instructions: do not exceed 3 doses per episode Discontinued polyethylene glycol 3350 17 gram/dose powder 238 g PO ONCE Qty: 238 0RF Rx Instructions: take per colonoscopy instructions bisacodyl [Dulcolax (bisacodyl)] 5 mg tablet,delayed release (DR/EC) 5 mg PO ONCE Qty: 4 0RF Rx Instructions: take per colonoscopy instructions ibuprofen 200 mg Tablet 800 mg PO Q6H PRN omeprazole 20 mg capsule,delayed release(DR/EC) 80 mg PO PRN PRN Discharge Instructions Instructions: Esophagitis (ED), Diet for Stomach Ulcers and Gastritis (ED), Peptic Ulcer (GEN) Additional Instructions: DSU Colonoscopy Post- Op Instructions Instructions for Everyone who is given Anesthesia: For your safety, please do the following for the next twenty-four (24) hours: *Do Not operate a motor vehicle (car, truck, motorcycle, etc.) *Do Not drink alcoholic beverages or use any recreational drugs for the first 24 hours or while taking pain medications. The medications in your body may have a reaction that can be dangerous. *Do Not make any important decisions or sign any important papers. Findings: -Garcia's esophagus /severe esophagitis -Gastric ulcer -Diverticulosis - colon polyps -Continue with lifestyle modifications: no alcohol, tobacco products, Aspirin or NSAID's (ibuprofen, Motrin, Naprosyn, aleve, etc), soda pop/any carbonated beverages, caffeine (including tea & chocolate), and acidic foods, (tomatoes, citrus, onions, peppermints) spicy or fried/fatty foods. Do not lie down for 30 minutes after eating, and do not eat 2 hours prior to bedtime. Avoid wearing tight fitting clothing/ belts -NO NSAID's/alcohol/tobacco/caffeine for 2 wks -Take Protonix (stomach medication) DAILY Follow up: 2wks in office 1. No lifting over 20 pounds or strenuous activity for the first 24 hours after your procedure. After 24 hours there are no restrictions on your activity but you may feel fatigued for a few days. 2. After you arrive home you may have a light meal and return to your normal diet as you can tolerate it without feeling sick to your stomach. 3. You may have a bloated, gaseous feeling in your belly (abdomen) after a colonoscopy. Passing gas and belching will help. Walking or lying down on your left side with your knees flexed may relieve the discomfort. Call the office at [phone] (Office) or [phone] (Hospital) right away if you notice any of the following: a.Vomiting of blood or ?coffee ground stools?. b.Rectal bleeding 1Tbsp, blood clots or continuous bleeding. c.Severe belly (abdominal) pain. d.A hard distended belly (abdomen) and an inability to pass gas. 4. Please don?t expect to have a normal BM (bowel movement) for 2-3 days after your procedure. 5. If there are questions regarding the findings of your procedure, please contact your doctor 6. If you are unable to contact your doctor with a problem, contact the hospital at [phone]. 7. Continue all your regular medications unless directed otherwise. I understand the above instructions and have no questions. Signature of Patient or Adult Escort Name of Responsible Adult Escort Signature of Nurse Date/Time Activity:: see above Diet:: see above Discharge Orders Discharge Orders: Discharge Order (Routine); Ordered 12/17/22 Ordered By: Mary Celestin DS: Diagnosis Discharge Diagnosis (1) Alcohol dependence: (2) Chronic anxiety: (3) Chronic depression: (4) Chronic low back pain: (5) Cocaine abuse in remission: (6) Colorectal polyps: (7) Diverticulosis: (8) Esophagitis: (9) Gastritis and duodenitis: (10) GERD (gastroesophageal reflux disease): (11) Hiatal hernia: (12) Obesity: (13) Adenomatous polyps: Status: Acute Asessment and Plan: The patient is seen and examined after their colonoscopy.? The patient has been able to pass gas.? They are not having abdominal pain.? They have been able to tolerate liquids and a snack.? They do not have any nausea or vomiting.? They are not having any chest pain or shortness of breath.??? They are not having any rectal bleeding. Their vital signs have been stable-see nursing notes. We discussed findings during their colonoscopy, and any biopsies that were done/polyps that were removed. The patient will be sent a letter with any biopsy results, and when to repeat the colonoscopy.-see discharge instructions. Patient was given explicit instructions to follow-up regarding colonoscopy-refer to discharge instructions.? 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
--- NOTE | 2022-12-17 15:03 | ENDO_ITS ---
Date of service: 12/17/22 Time of Service: 15:03 Endoscopy Report DATE OF PROCEDURE: 12/17/22 PRE-OP DIAGNOSIS: hx of GERD/Garcia's & anemia/GI bleeding POST-OP DIAGNOSIS: same (Garcia's/esophagitis/Gerd/Hiatal hernia antral ulcer) SURGEON: Mary Celestin ANESTHESIA TYPE: General:No Airway ESTIMATED BLOOD LOSS: 1 PATHOLOGY: other COMPLICATIONS: None DISPOSITION: same day PROCEDURE DESCRIPTION: After informed consent was obtained the patient was take to the procedure room and placed in a supine position. Monitors were applied and a time out was done. The patients name, date of , procedure type, allergies to medications and metal in their body was reviewed. A bite block was placed and the patient was sedated. Once sedated and comfortable the gastroscope was advanced through the oropharynx which was grossly normal into the esophagus. The proximal and mid- esophagus were normal. The sophagus show no strictures/stenosis,divertcula,varices. There is a 1cm sliding type hiatal hernia. There is significant Garcia's-he has 3 tongues of Garcia's at the 11, 2 and 5 o'clock position. 2 these are 1 cm. There is mild signs of chronic esophagitis. The scope was advanced into the stomach and through the pylorus into the 3rd portion of the duodenum. The duodenum was noted to be normal. Biopsies were done, all specimens are retrieved and no bleeding is noted. The scope was retracted back into the stomach and biopsies were done to rule out H. pylori. There were no gastritis or ulcers. The scope was retroflexed. The cardia and fundus were noted to be normal. There 1 cm sliding-type hiatal hernia noted. The scope was retracted back into the esophagus and biopsies were done of the GE junction to rule out Garcia's. The Z line was regular. The GE junction was at 40 cm. The scope was removed, we proceeded with the colonoscopy.
== END 2022-12-17 15:25 | disposition home or self-care (01) ==
PROVIDERS: PCP Family Medicine; Visit Provider Surgery
PROC: (CPT 45385; principal; 2022-12-17 12:00)
DX: K22.70 Barrett's esophagus without dysplasia (principal); K21.9 Gastro-esophageal reflux disease without esophagitis; K44.9 Diaphragmatic hernia without obstruction or gangrene; K62.1 Rectal polyp; K25.9 Gastric ulcer, unspecified as acute or chronic, without hemorrhage or perforation; K57.30 Diverticulosis of large intestine without perforation or abscess without bleeding; K20.90 Esophagitis, unspecified without bleeding; F10.20 Alcohol dependence, uncomplicated; Z86.010 Personal history of colon polyps; F41.9 Anxiety disorder, unspecified; K63.89 Other specified diseases of intestine; K22.89 Other specified disease of esophagus; K31.89 Other diseases of stomach and duodenum
CPT/HCPCS: 45385; 43239; 36415; 80053; 88305; 82977; 85025; 85610; J2001; J2704

== ENCOUNTER 2022-12-26 11:03 | Outpatient (REF) | payer BC, SELFPAY ==
[2022-12-26 15:42] LABS: ALT 57 U/L (16-63); AST 28 U/L (15-37); Albumin 4.5 g/dL (3.4-5.0); Alkaline Phosphatase 81 U/L (46-116); Calculated LDL 106 mg/dL (<100); Cholesterol 188 mg/dL (<200); HDL Cholesterol 45 mg/dL (40-60); Total Protein 7.7 g/dL (6.4-8.2); Triglyceride 187 mg/dL (<150)
[2022-12-26 16:37] LABS: Bilirubin, Direct 0.2 mg/dL (0.0-0.2)
[2022-12-27 09:52] LABS: PSA, Screening 1.4 ng/mL (<=3.5)
[2022-12-27 13:24] LABS: Hepatitis A Antibody IgM Negative (Negative); Hepatitis B Core Antibody Negative (Negative); Hepatitis B surface Ag Negative (Negative); Hepatitis C Ab w Rflx HCV PCR Negative (Negative)
[2022-12-31 12:13] LABS: IgA 219 mg/dL (85-499); Interpretation (See Note); Tissue Transglutaminase IgA <1.2 U/mL (<4.0)
== END 2022-12-26 11:04 | disposition home or self-care (01) ==
LOC: NCHCN 11:03
PROVIDERS: PCP Family Medicine; Visit Provider Physician Assistant
DX: Z12.5 Encounter for screening for malignant neoplasm of prostate (principal); E78.5 Hyperlipidemia, unspecified; R94.5 Abnormal results of liver function studies
CPT/HCPCS: 80061; 80076; 82784; 83516; 84153; 86704; 86709; 86803; 87340

== ENCOUNTER → 2023-01-11 00:38 | Outpatient (CLI) | payer BC, SELFPAY ==
--- NOTE | 2023-01-11 14:43 | DI.RAD_ITS ---
Exam(s) XR KNEE LT 3V AP,LAT,NIELS EXAM: XR KNEE LT 3V AP,LAT,NIELS CLINICAL HISTORY: LT KNEE PAIN, M25.569. TECHNIQUE: 2D digital imaging was performed. Three views. COMPARISON: No exams were available for comparison FINDINGS: BONES: No acute fracture is present. No bony destructive lesion is seen. JOINTS: The knee is normally aligned. No joint effusion is seen. The joint spaces are maintained. Minimal periarticular spurring. SOFT TISSUE: Normal. IMPRESSION: Minimal degenerative changes. DATA REPOSITORY: RADIATION DOSE DELIVERED:
--- NOTE | 2023-01-11 14:44 | DI.RAD_ITS ---
Exam(s) XR KNEE RT 3V AP,LAT,NIELS EXAM: XR KNEE RT 3V AP,LAT,NIELS CLINICAL HISTORY: RT KNEE PAIN, M25.569. TECHNIQUE: 2D digital imaging was performed. Three views. COMPARISON: CR XR KNEE LT 3V AP,LAT,NIELS from 01/11/2023 FINDINGS: BONES: No acute fracture is present. No bony destructive lesion is seen. Enthesophyte at quadriceps insertion on the patella. JOINTS: Moderate to severe narrowing of the medial femoral tibial joint space and mild periarticular spurring. Mild spurring at the articular aspect of the patella. Chondrocalcinosis is seen. No join t effusion is seen. SOFT TISSUE: Normal. IMPRESSION: Moderate to severe degenerative changes of the medial femoral tibial joint space. DATA REPOSITORY: RADIATION DOSE DELIVERED:
== END ==
PROVIDERS: PCP Family Medicine; Visit Provider Physician Assistant
DX: M17.31 Unilateral post-traumatic osteoarthritis, right knee (principal); M17.32 Unilateral post-traumatic osteoarthritis, left knee
CPT/HCPCS: 73562

== ENCOUNTER → 2023-04-09 00:37 | Outpatient (CLI) | payer BC, SELFPAY ==
--- NOTE | 2023-04-09 | DI.MRI_ITS ---
Exam(s) MR LOWER JOINT RT WO EXAM: MR LOWER JOINT RT WO CLINICAL HISTORY: TEAR MEDIAL MENISCUS RT KNEE, S83.241A, RT KNEE INJURY. TECHNIQUE: Multiplanar multisequence MRI was performed. COMPARISON: CR XR KNEE RT 3V AP,LAT,NIELS from 01/11/2023 FINDINGS: BONES: There is no fracture or contusion pattern. JOINTS: A small joint effusion is present. Articular cartilage: Patellofemoral joint: Mild cartilage thinning without focal defect. Medial femoral tibial joint: Thinning and irregularity extending down to bone. Lateral femoral tibial joint: Articular cartilage is unremarkable. TENDONS: Extensor mechanism: Unremarkable. Medial retinaculum: Unremarkable. Lateral retinaculum: Unremarkable. Popliteus: Unremarkable. MUSCLES: Unremarkable. MENISCI: The medial meniscus is peripherally displaced consistent with degenerative changes. Markedl y abnormal signal within the body and posterior horn. Findings could represent a tear superimposed o n degenerative changes.. Chondrocalcinosis noted on plain films.. The lateral meniscus is unremarka ble. SOFT TISSUES: Tiny popliteal cyst. LIGAMENTS: Anterior Cruciate: Unremarkable. Posterior Cruciate: Unremarkable. Medial Collateral:Unremarkable. Lateral Collateral: Unremarkable. IMPRESSION: Degenerative changes of the medial femoral tibial joint and medial meniscus. Superimposed tear is in the body and posterior horn. DATA REPOSITORY:
== END ==
PROVIDERS: PCP Family Medicine; Visit Provider Physician Assistant
DX: S83.241A Other tear of medial meniscus, current injury, right knee, initial encounter (principal); X58.XXXA Exposure to other specified factors, initial encounter
CPT/HCPCS: 73721

== ENCOUNTER 2023-04-09 08:28 | Day surgery (SDC) | payer BC, SELFPAY ==
--- NOTE | 2023-04-08 17:21 | W.PM.HP.N ---
Date of service: 04/09/23 Time of Service: 10:14 Assessment and Plan Assessment and plan (1) NAFLD (nonalcoholic fatty liver disease): Status: Acute (2) Antral ulcer: Status: Acute Assessment and plan: Informed consent is obtained for the procedural (explained in simple layman's terms that the pt. and/or family could understand) explaining risks vs benefits and alternatives to the procedure and consequences if we do not do the procedure and need/rational for the procedure. Risks include but are not limited to: bleeding, infection, perforation of esophagus, stomach, colon, small intestines, bronchus or trachea, or PTX. This would necessitate emergency surgery to repair the damage w/ possible ostomy; and other associated complications w/ the required surgery. Also complications of anesthesia including aspiration, OR/CVA/. 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 Patient denies having any abdominal pain he denies noticing any blood in his stools or dark tarry stools. He denies any pain or difficulty swallowing. His weight has been stable. He denies early satiety. He has been having some knee pain for which he is following with Ortho. His symptoms are well controlled as long as he remembers to take his medications He has had no interceding heart attack or stroke. He is not diabetic. He has not started any blood thinners. He has stopped smoking. He still uses alcohol regularly. Occasional use of THC or cocaine. EGD 12/16 At the antrum there is a ulcer crater that shows signs of healing and that it has been visible for some time. There is no signs of active or old bleeding. Is at the 3 o'clock position. Biopsies taken of the ulcer crater. There is no significant bleeding. Informed consent is obtained for the procedural (explained in simple layman's terms that the pt. and/or family could understand) explaining risks vs benefits and alternatives to the procedure and consequences if we do not do the procedure and need/rational for the procedure. Risks include but are not limited to: bleeding, infection, perforation of esophagus, stomach, colon, small intestines, bronchus or trachea, or PTX. This would necessitate emergency surgery to repair the damage w/ possible ostomy; and other associated complications w/ the required surgery. Also complications of anesthesia including aspiration, OR/CVA/. Today: They not having any chest pain or shortness of breath, currently.? They are not experiencing any fever or chills.? They deny any productive cough or upper respiratory tract infection signs or symptoms.? They are not having abdominal pain, or nausea and vomiting.? They have not had any changes in medications, past medical history or past surgical history since previously being seen in the office. They have not had any accidents or have been in the ER since the clinic pre-operative evaluation. ??I reviewed the procedure with the patient today, including risks and benefits of the procedure, and what they could expect at home for recovery.? All questions are answered to the patient?s satisfaction today, and they are stable to proceed with the proposed procedure. 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 denies Barretts esophagus (~07/2019) Colorectal polyps Diverticulosis Hiatal hernia Esophagitis Gastritis and duodenitis Chronic depression Pain, joint, shoulder, right Obesity Chronic anxiety GERD (gastroesophageal reflux disease) Cocaine abuse in remission Rectal bleeding Atypical chest pain Pt. states did cardiac testing stated came back normal Diverticulitis Chronic low back pain Alcohol dependence Surgical History Hx of shoulder surgery R ight side H/O esophagogastroduodenoscopy (~08/05/19) S/P colonoscopy (~12/17/22) History of shoulder surgery Rotator cuff repair right shoulder. Social History Smoking/Tobacco Use Status: Former Tobacco Use Smoking risk assessment performed?: Yes Alcohol Intake: current Alcohol Intake frequency: 0-2 drinks per day Alcohol type: beer Details: Decreased his drinking 4 weeks ago from 3-4 beers a night to 1 beer once wk Drug use: Occasionally Substance use type: marijuana and crack/cocaine Details: marijuana 12/07/22 Pt. states cocaine 1 month ago per 04/08/23 Household members: spouse Housing: house current occupation: self employed Do you feel safe at home: Yes Do you feel safe in your relationship?: Yes Additional Social history: Pt. denies his safety is in jeopardy, states has marital problems but does not want anybody involved. This RN explained help is available here if he chooses, pt. denies at this time. Meds Allergies and Home Medications Allergies Allergy/AdvReac Type Severity Reaction Status Date / Time Opioids - Morphine Analogues Allergy Severe Unverified 04/09/23 08:53 lactose AdvReac Mild Verified 04/09/23 10:13 Home Medications Medication Instructions Recorded Confirmed Type acetaminophen 325 mg tablet 650 mg (2 x 325 mg) PO Q4H PRN PRN 01/18/22 04/09/23 Rx #0 tabs nitroglycerin 0.4 mg sublingual 0.4 mg sublingual Q5-15M PRN #10 01/18/22 04/09/23 Rx tablet tabs pantoprazole 40 mg tablet,delayed 40 mg PO DAILY #90 tabs 12/17/22 04/09/23 Rx release (Protonix) celecoxib 200 mg capsule (Celebrex) 200 mg PO BID 02/08/23 04/09/23 History Exam Narrative Exam Narrative: PHYSICAL EXAM GENERAL APPEARANCE: Alert, healthy appearance, oriented, x 3,? in no acute distress LUNGS: normal respiration/normal chest excursion. ?Clear to auscultation bilaterally. ?No wheeze. ?HEART: Regular rate and rhythm. no murmurs ABDOMEN: soft and non-tender to palpation.? Normal bowel sounds.? Time Spent Time spent with Patient: <40 minutes Time was spent: preparing to see the patient(eg.review tests), obtaining and/or reviewing separately otained hiistory, ordering medications,tests, procedures, referring, communicating with other health lawn care technician, indepentently interpreting results, counseling the patient and care coordination
--- NOTE | 2023-04-08 17:24 | PDOC.DSDIS_ITS ---
Date of service: 04/09/23 Time of Service: 11:01 Discharge Plan Disposition Patient Disposition: Home Condition: Good Discharge Details Reason For Visit: Stomach scope Attending Provider: Mary Celestin Primary Care Provider: Mak Mcghee Home Meds and New Rx's Prescriptions: No Action celecoxib [Celebrex] 200 mg capsule 200 mg PO BID acetaminophen 325 mg Tablet 650 mg PO Q4H PRN PRNQty: 0 0RF nitroglycerin 0.4 mg tablet, sublingual 0.4 mg sublingual Q5-15M PRNQty: 10 0RF Rx Instructions: do not exceed 3 doses per episode pantoprazole [Protonix] 40 mg tablet,delayed release (DR/EC) 40 mg PO DAILY Qty: 90 4RF Discharge Instructions Additional Instructions: Post EGD Instruction ?You had anesthesia for your EGD/stomach scope today.? For your safety, please do the following for the next twenty-four (24) hours: Do Not operate a motor vehicle (car, truck, motorcycle, etc.) Do Not drink alcoholic beverages or use any recreational drugs for the first 24 hours or while taking pain medications. The medications in your body may have a reaction that can be dangerous. Do Not make any important decisions or sign any important papers You have just had a gastroscopy (EGD) or upper GI tract examination. It is important for your smooth recovery that you carefully follow the recommendations below. Do not hesitate to call if any questions should arise about your anesthesia, condition, or care. -Symptoms you may experience during the next 24 hours: ?1. Mild abdominal pain or excessive gas or a bloated feeling which improves with rest, liquids, eating? lightly, and walking as tolerated. 2. Drowsiness and/or forgetfulness because of the medications you were given. 3. A sore throat which you can treat with throat lozenges or by gargling with salt water 4-5 times a day. 4. Redness at the site of your IV which you can treat with warm compresses. SPECIAL INSTRUCTIONS: 1. You may resume your previous diet in one hour. We recommend a light meal to start, then progress as tolerated. 2. Restart regular medications in one hour. 3. No aspirin or non-steroidal containing medication for 24 hours. Tylenol is ok to take if needed. 4. No lifting over 20 pounds or strenuous activity for the first 24 hours after your procedure. After 24 hours there are no restrictions on your activity, but you may feel fatigued for a few days. Findings: Mild gastritis/duodenitis. Hiatal hernia and chronic Garcia's Treatment: continue Protonix -Continue to follow lifestyle modifications: No alcohol, tobacco products, Aspirin or NSAID's (ibuprofen, Motrin, Naprosyn, aleve, etc).? Try to limit/avoid:? soda pop/any carbonated beverages, caffeine (including tea & chocolate), and acidic foods, (tomatoes, citrus, onions, peppermints) spicy or fried/fatty foods. Do not lie down for 30 minutes after eating, and do not eat 2 hours prior to bedtime. Avoid wearing tight fitting clothing/ belts. Follow up: Repeat scope in 2024 -My office will send a letter with the results of your biopsy?s in 2-3wks time. Call the office at [phone] (Office) or [phone] (Hospital), or go to the ER right away if you notice any of the followin. Vomiting blood and /or ?coffee ground? material. ?2. Worsening of abdominal pain or cramping. ?3. Trouble with breathing, cough, and/or fever (temperature above 101.5 F). 4. Increasing pain with swallowing. ?5. Chest pain. 6. Any new symptoms. 7. Worsening of the redness at the IV site Activity:: see above Diet:: see above DS: Diagnosis Discharge Diagnosis (1) NAFLD (nonalcoholic fatty liver disease): Status: Acute (2) Antral ulcer: Status: Acute Asessment and Plan: Patient is seen and examined after they are endoscopy.? Patient has minimal sore throat.? They have been able to tolerate liquids.? They do not have any nausea vomiting.? They are not having any chest pain or shortness of breath.? They have been able to pass gas and are not having any abdominal pain or distention.? They have not vomited any blood.? The vital signs have been stable-see nursing notes. We discussed findings on their endoscopy. We reviewed the importance of lifestyle modification-see discharge instructions We reviewed any new medications that the patient may be prescribed-see discharge instructions Patient will either be sent a letter with the biopsy results or follow-up in the office-see discharge instructions. Patient was given explicit instructions to follow-up regarding post endoscopy- refer to discharge Patient verbalized understanding and discharged in stable and satisfactory condition.? See nursing notes. 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
--- NOTE | 2023-04-08 17:26 | W.PM.ENDDOP ---
Date of service: 04/09/23 Time of Service: 10:53 Endoscopy Report DATE OF PROCEDURE: 04/09/23 PRE-OP DIAGNOSIS: antral ulcer/ETOH abuse POST-OP DIAGNOSIS: other (Mild gastritis, mild duodenitis, hiatal hernia, chronic Garcia's with no acute esophagitis) SURGEON: Mary Celestin ANESTHESIA TYPE: General:No Airway ESTIMATED BLOOD LOSS: 2 PATHOLOGY: other COMPLICATIONS: None DISPOSITION: same day PROCEDURE DESCRIPTION: After informed consent was obtained the patient was take to the procedure room and placed in a supine position. Monitors were applied and a time out was done. The patients name, date of , procedure type, allergies to medications and metal in their body was reviewed. A bite block was placed and the patient was sedated. Once sedated and comfortable the gastroscope was advanced through the oropharynx which was grossly normal into the esophagus. The proximal and mid-esophagus were normal. There is no esophageal erosions, varices, diverticula or stricture present. He does have a 3 to 4 cm sliding-type hiatal hernia with no active incarceration or ulceration. He does have a the scope was advanced into the stomach and through the pylorus into the 3rd portion of the duodenum. The duodenum was noted to be mild duodenitis. Biopsies were done, all specimens are retrieved and no bleeding is noted. The scope was retracted back into the stomach and biopsies were done to rule out H. pylori. There were no ulcers. There is mild gastritis at the antrum radiating out any linear fashion. The scope was retroflexed. The cardia and fundus were noted to be normal. There is no esophagitis. He has obvious Garcia's with a .5 cm tongue of Garcia's at the 4 o'clock position the scope was retracted back into the esophagus and biopsies were done of the GE junction to rule out Garcia's. At the 3 o'clock position he has a discrete 0.5 cm island of Garcia's. The Z line was irregular. . The scope was removed and the patient was woken up and taken back to [facility] in stable condition.
[2023-04-09 08:55] VITALS: BP 127/75; PULSE 57; RESP 18; TEMP 36.2; O2SAT 96
[2023-04-09 09:08] VITALS: BMI 29.8
--- NOTE | 2023-04-09 09:08 | ANES.PREOP_ITS ---
General Info Date of Service Date Performed: 04/09/23 Height: 6 ft Weight: 99.79 kg Body Mass Index (BMI): 29.8 Surgical Procedure: Operation Date: 04/09/23 10:20 Proposed Procedure Side Surgeon p Gastroscopy Mary Celestin, Meds Allergies and Home Medications Allergies Allergy/AdvReac Type Severity Reaction Status Date / Time Opioids - Morphine Analogues Allergy Severe Unverified 04/09/23 08:53 Home Medication Medication Instructions Recorded acetaminophen 325 mg tablet 650 mg (2 x 325 mg) PO Q4H PRN PRN 01/18/22 #0 tabs nitroglycerin 0.4 mg sublingual 0.4 mg sublingual Q5-15M PRN #10 01/18/22 tablet tabs pantoprazole 40 mg tablet,delayed 40 mg PO DAILY #90 tabs 12/17/22 release (Protonix) celecoxib 200 mg capsule (Celebrex) 200 mg PO BID 02/08/23 Current Visit Medications: Current Medications Generic Name Dose Route Start Last Admin Trade Name Rah PRN Reason Stop Dose Admin Ringer's Solution 1,000 mls @ 80 mls/hr 04/09/23 06:00 IV 05/08/23 23:59 INFUSION TELLY IV Miscellaneous Supplies 1 each 04/09/23 06:00 Iv Access IV 05/08/23 23:59 DIRECTED TELLY Sodium Chloride 0 ml 04/09/23 06:00 Normal Saline Flush 10 Ml Syr IV 05/08/23 23:59 PRN PRN Sodium Chloride 0 ml 04/09/23 06:00 Normal Saline 10 Ml Vial IJ 05/08/23 23:59 DIRECTED PRN Sterile Water 0 ml 04/09/23 06:00 Water,Injection,Sterile 10 Ml Vial IJ 05/08/23 23:59 DIRECTED PRN PFSH Active Problems Active Problems: Problem Status Onset Code Left knee pain M25.562 Chondrocalcinosis of right knee M11.261 Arthritis of right knee M17.11 Shingles B02.9 Hyperlipidemia E78.5 NAFLD (nonalcoholic fatty liver disease) K76.0 Antral ulcer K25.9 Garcia's esophagus determined by biopsy K22.70 Hiatal hernia with GERD K21.9, K44.9 Adenomatous polyps D36.9 Herniated disc Atypical angina I20.8 Medical History Medical History Cubital tunnel syndrome on right (07/30/16) pt. denies Barretts esophagus (~07/2019) Colorectal polyps Diverticulosis Hiatal hernia Esophagitis Gastritis and duodenitis Chronic depression Pain, joint, shoulder, right Obesity Chronic anxiety GERD (gastroesophageal reflux disease) Cocaine abuse in remission Rectal bleeding Atypical chest pain Pt. states did cardiac testing stated came back normal Diverticulitis Chronic low back pain Alcohol dependence Medical History Comments:: 04/09/23 09:02am: Patient reports last use is cocaine about two weeks ago. Patient reports last use marijuana two days ago. Patient reports one alcoholic drink on 04/08/23 about 17:30. Surgical History Surgical History (Reviewed 04/08/23 @ 17: by Mary Celestin DO) Hx of shoulder surgery R ight side H/O esophagogastroduodenoscopy (~08/05/19) S/P colonoscopy (~12/17/22) History of shoulder surgery Rotator cuff repair right shoulder. Tobacco Smoking/Tobacco Use Status: Former Tobacco Use Alcohol Alcohol Intake: current Alcohol intake frequency: 0-2 drinks per day Alcohol type: beer Details: Decreased his drinking 4 weeks ago from 3-4 beers a night to 1 beer once wk Substance Use Substance use: Occasionally Substance use type: marijuana and crack/cocaine Details: marijuana 12/07/22 Pt. states cocaine 1 month ago per 04/08/23 Vital Signs and Lab Results Vital Signs Most Recent Vital Signs in EMR: Most Recent Vital Signs Temp Pulse Resp BP Pulse Ox 36.2 C L 57 L 18 127/75 96 04/09/23 08:55 04/09/23 08:55 04/09/23 08:55 04/09/23 08:55 04/09/23 08:55 Lab Results Blood Type / Crossmatch: No Data to Display Complete Blood Count: No Data to Display Complete Metabolic Panel: No Data to Display Liver Function Panel: No Data to Display Coagulation Panel: No Data to Display Cardiac Panel: No Data to Display Arterial Blood Gas: No Data to Display Venous Blood Gas: No Data to Display Pancreas Panel: No Data to Display Thyroid Panel: No Data to Display Infectious Disease: No Data to Display Blood Cultures: No Data to Display Toxicology Panel: No Data to Display Imaging and Studies Imaging and Studies Study information below may be from another EMR and interpreted by another provider. Please see original notes in EMR for more complete details. EKG Summary: 09/16: sinus sean. Stress Test Summary: 05/17: resting EKG WNL, 10.16 METS, no EKG evidence of ischemia. Normal perfusion, LVEF 52%. Echocardiogram Summary: 01/15: LVEF 60%, mildly dilated ascending Ao, PAS 25 mm hg. Anesthesia Assessment and Plan Anesthesia History Personal History: No History of Anesthesia Complications Family History: No Family History of Anesthesia Complications Exercise Tolerance Exercise Tolerance: Metabolic Equivalents>4 Pertinent Negatives Pertinent Negatives: No Symptoms of GERD (RX) Cardiac & Pulmonary Exam Cardiac Exam: Normal S1/S2 Heart Sounds Pulmonary Exam: Clear Bilateral Breath Sounds Implantable Cardiac Device Does patient have a Pacemaker or an ICD?: No Airway Exam Known Difficult Airway: No Mallampati Class: 2 Mouth Opening: Normal (> 3cm) Thyromental Distance: Greater than 3 cm Neck Range of Motion: Full ROM Neck Circumference: Normal Teeth Condition: Normal Dentition ASA Classification ASA Score: ASA 2 Emergency Case?: No NPO Status NPO Status: NPO Clears >2 hours, Solids >8 hours Anesthesia Plan Resuscitation Status: Full Code Anesthesia Technique: General Anesthesia Airway Planned: Natural Airway Monitors Used: Standard Monitors
[2023-04-09] MEDS: Lactated Ringers 1,000 ML 80 ML IV (09:16)
--- NOTE | 2023-04-09 10:38 | BOWEL_PTH ---
PATIENT: Kristian Morgan LOC: [facility] U#:[id number] AGE/SX: 57/M ROOM: RE04/09/[address]: Mary Celestin : 1965 BED: DIS: 04/09/2023 SPEC #: [id number] RECD: 04/09/23 12:10 STATUS: OZIEL REQ #: [id number] RAJNI: 04/09/23 10:[address]: Mary Celestin DEPT: Surgical Specimen RECD BY: Mago He ENTERED: 04/09/23 12:10 SP TYPE: Bowel OTHR DR: Mak Mcghee Tissues: 1 - BIOPSY BOWEL 2 - STOMACH BIOPSY 3 - STOMACH BIOPSY Procedures: GROSS AND MICRO LEVEL 4 Comments: [id number]
[2023-04-09 10:48] VITALS: BP 110/70; PULSE 59; RESP 16; TEMP 36.4; O2SAT 95
--- NOTE | 2023-04-09 11:10 | W.ANESPOSTOP ---
Postoperative Evaluation Date, Time and Location Date Performed: 04/09/23 Time Performed: 11:10 Patient Location: Day Surgery Unit Vital Signs Most Recent Imported Vital Signs: Most Recent Vital Signs Temp Pulse Resp BP Pulse Ox 36.4 C L 59 L 16 110/70 95 04/09/23 10:48 04/09/23 10:48 04/09/23 10:48 04/09/23 10:48 04/09/23 10:48 Assessment Mental Status: Awake (Alert & Oriented to Patient Baseline) Airway and Respiratory Function: Patent airway with normal (patient baseline) respiratory exam Cardiovascular Function: Hemodynamically Stable Hydration Status: Adequately Hydrated Nausea & Vomiting: No Nausea or Vomiting Pain: Pt. Denies Any Pain Peripheral Nerve Block: Patient did not receive a nerve block
[2023-04-09 11:31] VITALS: BP 116/70; PULSE 50; RESP 16; TEMP 36.3; O2SAT 96
== END 2023-04-09 11:53 | disposition home or self-care (01) ==
PROVIDERS: PCP Family Medicine; Visit Provider Surgery
PROC: 0DJ68ZZ Inspection of Stomach, Via Natural or Artificial Opening Endoscopic (ICD-10-PCS; CPT 43235; principal; 2023-04-09 10:15)
DX: K76.0 Fatty (change of) liver, not elsewhere classified (principal); K25.9 Gastric ulcer, unspecified as acute or chronic, without hemorrhage or perforation; K22.70 Barrett's esophagus without dysplasia; K21.9 Gastro-esophageal reflux disease without esophagitis; K44.9 Diaphragmatic hernia without obstruction or gangrene; F10.20 Alcohol dependence, uncomplicated; F14.11 Cocaine abuse, in remission
CPT/HCPCS: 43239; 88305

== ENCOUNTER 2023-05-14 15:23 | Emergency (ER) | payer BC, SELFPAY ==
[2023-05-14] VITALS (13 sets, daily range): BP systolic 127–131; BP diastolic 63–79; PULSE 49–60; RESP 12–21; TEMP 36.4; O2SAT 96
--- NOTE | 2023-05-14 15:30 | RT.EKG_ITS ---
APPROVED REPORT Exam: Resting ECG Reason for Exam: Epigastric pain Patient Location: E HR:50 bpm ECG Measurements Heart Rate 50 AXIS MS 173 P 20 QRSd 88 QRS 22 QT 429 T 29 QTc 391 Conclusion Sinus bradycardia...rate< 60 Narrow complex sinus bradycardia at a rate of 50. Normal axis. Intervals within normal limits. Mil d T wave flattening in lead III. Compared to prior dated earlier this year T wave flattening in lead III is new. No acute ST segment abnormalities. No acute injury pattern.
--- NOTE | 2023-05-14 15:30 | DI.CT_ITS ---
Exam(s) CT CHEST/ABD/PEL W EXAM: CT CHEST/ABD/PEL W CLINICAL HISTORY: Hematemesis concern for esophageal rupture TECHNIQUE: Imaging Protocol: Axial computed tomography images with coronal and sagittal reformatted images were created and reviewed CONTRAST MATERIAL: Intravenous: Omnipaque 350 contrast volume:100 mL Oral: No COMPARISON: CT CT ABDOMEN PELVIS W from 09/01/2022 FINDINGS: CHEST: Tracheobronchial tree: Patent where visualized. Pulmonary parenchyma: No consolidation or dominant measurable mass. No architectural distortion. Ther e is dependent atelectasis. Visualized thyroid gland: Unremarkable. Mediastinum and Diana: No dominant adenopathy or fluid collection. The esophagus is unremarkable. No pneumomediastinum. Pleura: No effusion or pneumothorax. Heart: The heart is not dilated. Coronary artery calcifications are present. No pericardial effusion . Pulmonary arteries: The pulmonary arteries are not adequately opacified due to the bolus timing. No large central pulmonary embolus is identified. Aorta: Thoracic aorta non-dilated. Atherosclerosis. Lymph nodes: Within normal limits. Soft tissues: Unremarkable. Bones:Within normal limits for the patient's age. ABDOMEN: Liver: There is diffuse decreased attenuation of the liver suggesting fatty infiltration. No measura ble mass. Portal, Superior Mesenteric, and Splenic Veins: Unremarkable. Gallbladder and Biliary Tract: No radiodense calculus or dilation. Pancreas: Normal density, no abnormal calcifications or inflammatory process. Spleen: Normal. Adrenals: No masses seen. Kidneys: Normal size, contour and axis. No radiodense stones or obstructive uropathy. No masses seen. Abdominal Aorta: Abdominal portion non-dilated. Atherosclerosis. Bowel: There is diverticulosis of the colon but no evidence of acute diverticulitis. The stomach is incompletely distended limiting evaluation. There is no evidence of bowel obstruction or bowel wall thickening. Appendix is unremarkable. Peritoneal Cavity: No ascites, collection or mesenteric inflammatory response. No free air. Lymph Nodes: Within normal limits. Bones: Within normal limits for the patient's age. Soft Tissues: Unremarkable. PELVIS: Bladder: Symmetric distention, no gross wall thickening. Reproductive Organs: Unremarkable as visualized. Lymph Nodes: Within normal limits. Bones: Within normal limits. IMPRESSION: 1. No acute abdominal, thoracic or pulmonary process. 2. Incidental findings in the abdomen and pelvis as described above. 3. Findings were discussed with Dr. Carmona at 5:25 p.m. on 05/14/2023. RADIATION DOSE DELIVERED: Total DLP DATA REPOSITORY: All CT scans at this facility are submitted to the National Radiology Data Registry (NRDR) Dose Index Registry (DIR) with the [employer] (ACR). RADIATION OPTIMIZATION: All CT scans at this facility use at least one of these dose optimization te chniques: automated exposure control; mA and/or kV adjustment per patient size (includes targeted exa ms where dose is matched to clinical indication); or iterative reconstruction.
--- NOTE | 2023-05-14 15:44 | ED.GENADUL_ITS ---
Discharge Plan Disposition Patient Disposition: Home Discharge Details Clinical Impression: Acute epigastric pain Primary Care Provider: Mak Mcghee ED Provider: Mak Carmona Home Meds and New Rx's Prescriptions: Continued acetaminophen 325 mg Tablet 650 mg PO Q4H PRN PRNQty: 0 0RF nitroglycerin 0.4 mg tablet, sublingual 0.4 mg sublingual Q5-15M PRNQty: 10 0RF Rx Instructions: do not exceed 3 doses per episode pantoprazole [Protonix] 40 mg tablet,delayed release (DR/EC) 40 mg PO DAILY Qty: 90 4RF Discontinued celecoxib [Celebrex] 200 mg capsule 200 mg PO BID Discharge Instructions Additional Instructions: You are seen in the emergency department for your abdominal pain. Your EKG showed no sign of a heart attack. Your blood counts showed no sign of acute blood loss anemia. If you develop black or bloody stools worsening pain or have any other concerns please return to the emergency department. Otherwise please follow-up next week with your primary care provider. Discharge Data Discharge Date/Time-TO BE ENTERED AT DEPARTURE: 05/14/23 18:11 HPI General Date/Time Provider Initiated Documentation: 05/14/23 15:34 . HPI Narrative: MDM This is an overall well-appearing afebrile and not tachycardic 57-year-old male with esophageal discomfort and history of Garcia's esophagus and chest pain concerning for reflux versus esophageal rupture given hematemesis. No tearing quality to pain to suggest ACS. Patient is relatively low risk for ACS given no hypertension diabetes nor tobacco use however he does endorse marijuana and cocaine so we will obtain troponin. No fevers or cough to suggest pneumonia. No rash to chest to suggest zoster. No trauma and equal breath sounds without pneumothorax. No pain out of proportion to suggest necrotizing soft tissue infection. Patient has not had a bowel movement in 3 days and he reports that this is not abnormal for him. Given that he has had only mild emesis and has a soft nontender abdomen my suspicion for SBO is low. No right upper quadrant tenderness to suggest acute cholecystitis. No flank pain to suggest ureterolithiasis. Will proceed to CT chest abdomen pelvis to assess for esophageal rupture. Will send type and screen. Pancreatitis is in the differential so we will send a lipase. Will keep patient n.p.o., treat with IV acetaminophen and reassess following labs and imaging. Given darker stool 3 days ago I am also concerned about the possibility of upper GI bleed so we will treat with 80 mg of pantoprazole. Patient is not anticoagulated. He does have celecoxib on his med list. Given his history of Sena is certainly possible that he could have esophageal varices. Given no ongoing hematemesis will defer octreotide at this point in time. Will send type and screen. Patient denies taking ibuprofen or his celecoxib. No routine alcohol to suggest gastritis. 4:30 PM CBC lacks anemia thrombocytopenia and leukocytosis. Patient had a reassuring bedside echocardiogram. 5:[address] chest with no obvious free air my preliminary interpretation. Normal reassuring magnesium. Lipase not consistent with pancreatitis. Comprehensive metabolic panel showing very mild hyperbilirubinemia improved compared to prior. No JAIR. No LFT abnormalities. No acute electrolyte abnormalities. CT scan read is reassuring with no acute abnormalities. 5:32 PM I reviewed the patient's case with Dr. Corona from general surgery. He advised outpatient primary care follow-up.I was planning on completing a rectal exam to assess for melena in order to calculate a GBS score. Patient declined. I advised him that a rectal exam would be helpful to determine his risk for needing interventions in the setting of GI bleed has no melena would make him GBS 1 as opposed to melena which would make him high risk at GBS 2. You did not consent for rectal exam. I advised him to return to the emergency department if he developed any black or bloody stools. I reviewed the patient's EGD. He had no esophageal erosions varices or diverticula approximately 5 weeks ago. No ulcers. Mild gastritis. No esophagitis.Biopsy negative for H. pylori. I have asked health community support professional Aster to have the patient seen within the week by his primary care provider in the setting of his epigastric pain. Patient understood his return indications and was discharged with an empiric trial of expectant outpatient management. Chronic conditions affecting the care of the patient: Garcia's esophagus History obtained from an outside historian: N/A External record review: No [facility] [place] Diagnostic interpretations performed by me: Per my independent interpretation EKG shows: Narrow complex sinus bradycardia at a rate of 50. Normal axis. Intervals within normal limits. Mild T wave flattening in lead III. Compared to prior dated earlier this year T wave flattening in lead III is new. No acute ST segment abnormalities. No acute injury pattern. Medications: Acetaminophen IV fluids Social determinants of health affecting disposition: N/A Management discussed with: general surgery & radiology Treatment/interventions considered: N/A Response to therapies provided: No hematemesis in the ED HPI This is a 57-year-old male with history of Garcia's esophagus arrived to the emergency department via private vehicle in the setting of epigastric pain. Patient reports that he had small-volume hematemesis 2 days ago. He says that he vomited several tablespoons of blood. He most recently had an EGD approximately 6 weeks ago. He has had a stabbing and sharp constant epigastric pain for the past 2 days since vomiting. It radiates up into his throat. Is not associated with diaphoresis. He has been nauseous but has had no recurrent vomiting. He has not had a bowel movement for the past 3 days but does feel that he had darker than usual stool 3 days ago. Patient denies routine tobacco and ethanol but does smoke marijuana and insufflate cocaine. He last used cocaine 4 days ago. He has never had any surgeries to his abdomen. He denies history of coronary artery disease diabetes hypertension hyperlipidemia No family history of premature coronary artery disease. He reports that he has had 2 negative stress test in the past. He has had no recent diarrhea. Exam General: Well-appearing in no acute distress speaking in complete sentences. Head: Normocephalic, atraumatic. Eye: Extraocular eye movements intact. No conjunctival injection. No scleral icterus. Ear, nose, mouth, throat: Grossly normal inspection. Normal voice, handling secretions normally. Neck: Trachea midline. Cardiovascular: Well-perfused distal extremities. Regular rate and rhythm Respiratory: Nonlabored respiration. Clear lungs bilaterally Gastrointestinal: Nondistended abdomen. Soft nontender. No rebound. No guarding. Musculoskeletal: No edema. Moving all 4 extremities spontaneously. Skin: Normal for age and race, grossly normal temperature and turgor. No acute rash. Neurologic: Alert and appropriate, no apparent acute deficits. Psychiatric: Mood and manner are appropriate. Grooming and personal hygiene are appropriate. Related Data Home Medications Medication Instructions Recorded Confirmed acetaminophen 325 mg tablet 650 mg (2 x 325 mg) PO Q4H PRN PRN 01/18/22 05/14/23 #0 tabs nitroglycerin 0.4 mg sublingual 0.4 mg sublingual Q5-15M PRN #10 01/18/22 05/14/23 tablet tabs pantoprazole 40 mg tablet,delayed 40 mg PO DAILY #90 tabs 12/17/22 05/14/23 release (Protonix) Previous Rx's Medication Instructions Recorded acetaminophen 325 mg tablet 650 mg (2 x 325 mg) PO Q4H PRN PRN 01/18/22 #0 tabs nitroglycerin 0.4 mg sublingual 0.4 mg sublingual Q5-15M PRN #10 01/18/22 tablet tabs pantoprazole 40 mg tablet,delayed 40 mg PO DAILY #90 tabs 12/17/22 release (Protonix) Allergies Allergy/AdvReac Type Severity Reaction Status Date / Time Opioids - Morphine Analogues Allergy Severe Unverified 05/14/23 15:35 lactose AdvReac Mild Verified 05/14/23 15:35 General Stated Complaint: Abd Prob URSULA: 3 PFSH All Active Problems (Updated 05/14/23 @ 17:45 by Mak Carmona MD) Acute epigastric pain (Acute) Left knee pain (Acute) Chondrocalcinosis of right knee (Acute) Arthritis of right knee (Acute) Shingles (Acute) Hyperlipidemia (Acute) NAFLD (nonalcoholic fatty liver disease) (Acute) Antral ulcer (Acute) Garcia's esophagus determined by biopsy (Acute) Hiatal hernia with GERD (Acute) Adenomatous polyps (Acute) Herniated disc (Acute) Atypical angina (Acute) Medical History (Updated 05/14/23 @ 17:45 by Mak Carmona MD) Cubital tunnel syndrome on right (07/30/16) pt. denies Barretts esophagus (~07/2019) Colorectal polyps Diverticulosis Hiatal hernia Esophagitis Gastritis and duodenitis Chronic depression Pain, joint, shoulder, right Obesity Chronic anxiety GERD (gastroesophageal reflux disease) Cocaine abuse in remission Rectal bleeding Atypical chest pain Pt. states did cardiac testing stated came back normal Diverticulitis Chronic low back pain Alcohol dependence Surgical History (Updated 04/10/23 @ 08:16 by Amy Lu) Hx of shoulder surgery R ight side H/O esophagogastroduodenoscopy (~03/2023) biopsies taken S/P colonoscopy (~12/17/22) History of shoulder surgery Rotator cuff repair right shoulder. Social History Smoking/Tobacco Use Status: Former Tobacco Use Smoking risk assessment performed?: Yes Alcohol Intake: current Alcohol Intake frequency: 0-2 drinks per day Alcohol type: beer Details: Decreased his drinking 4 weeks ago from 3-4 beers a night to 1 beer once wk Drug use: Occasionally Substance use type: marijuana and crack/cocaine Details: marijuana 12/07/22 Pt. states cocaine 1 month ago per 04/08/23 Household members: spouse Housing: house current occupation: self employed Do you feel safe at home: Yes Do you feel safe in your relationship?: Yes Additional Social history: Pt. denies his safety is in jeopardy, states has marital problems but does not want anybody involved. This RN explained help is available here if he chooses, pt. denies at this time. Course Vital Signs Vital signs: Vital Signs Temperature 36.4 C L 05/14/23 15:26 Pulse 60 05/14/23 15:26 Respiratory Rate 15 05/14/23 15:26 Blood Pressure 131/79 05/14/23 15:26 Pulse Oximetry 96 05/14/23 15:26 Temperature 36.4 C L 05/14/23 15:26 Temperature Source Tympanic 05/14/23 15:26 Pulse 60 05/14/23 15:33 Respiratory Rate 15 05/14/23 15:33 Respiratory Effort Normal, Non-Labored 05/14/23 15:32 Blood Pressure 131/79 05/14/23 15:33 Blood Pressure Position Sitting 05/14/23 15:33 Pulse Oximetry 96 05/14/23 15:33 Oxygen Delivery Method Room Air 05/14/23 15:33 Oxygen Flow Rate 0 05/14/23 15:26 Pain Level 8 05/14/23 15:33 POCUS Exam (ED) Limited Cardiac Exam DATE OF EXAM: 05/14/23 TIME OF EXAM: 16:09 PROVIDER THAT PERFORMED THE STUDY: Mak Carmona REASON FOR EXAM: Chest pain VISUALIZED STRUCTURES: Four Chambers, Left ventricle and LVOT VIEW OBTAINED: Apical 4-Chamber, Parasternal long-axis and Subxiphoid PERTINENT FINDINGS/IMPRESSION: No LV dysfunction and No pericardial effusion DIFFERENTIAL DIAGNOSES: Aortic outflow track less than 4 cm, good squeeze, RV less than LV, no significant pericardial effusion. Exam complete PAWSS Have you Been Recently Intoxicated or Drunk Within the Last 30 days?: No Have you Ever Experienced Previous Episodes of Alcohol Withdrawal?: No Have you ever Experienced Withdrawal Seizures?: No Have you ever Experienced Delirium Tremens(DT)s?: No Have you ever undergone Alcohol Rehabilitation Treatment (i.e, inpt ot outpatient treatment programs)?: No Have you ever Experienced Blackouts?: No Have you ever Combined Alcohol with other Downers within the last 90 days?: No Have you ever Combined Alcohol with any other Substance of Abuse during the last 90 days?: No Positive Blood Alcohol level on Presentation? [PCS.BAL]: No Evidence of Increased Autonomic Activity (i.e. HR>120, tremor, sweating, agitation, nausea)?: No Result: 0
[2023-05-14 16:06] LABS: Abs Immature Grans 0.01 10^3/uL (0.0-0.06); Absolute Basophil Count 0.03 10^3/uL (0.0-0.2); Absolute Eosinophil Count 0.18 10^3/uL (0.0-0.7); Absolute Lymphocyte Count 1.82 10^3/uL (1.2-3.4); Absolute Neutrophil Count 2.83 10^3/uL (1.2-6.7); Basophils % 0.6; Eosinophils % 3.4; HCT 41.7 % (40.0-50.0); Immature Grans % 0.2; Lymphocytes % 34.5; MCH 30.1 pg (27.0-33.0); MCHC 33.6 % (32.0-36.0); MCV 90 fL (80-95); MPV 10.6 fL (8.0-11.0); Monocytes % 7.6; Neutrophils % 53.7; Platelet Count 214 10^3/uL (130-400); RBC 4.65 10^6/uL (4.36-5.78); WBC 5.27 10^3/uL (4.4-10.8)
[2023-05-14] MEDS: Normal Saline 500 ML IV (16:08)
[2023-05-14] MEDS: Ondansetron 4 MG/2 ML VIAL IVP (16:09)
[2023-05-14] MEDS: Pantoprazole 40 MG VIAL 80 MG IVP (16:11)
[2023-05-14] MEDS: ACETAMINOPHEN 1,000 MG/100 ML BTL 400 MG IVPB (16:12)
[2023-05-14 16:20] LABS: PTT Activated 25.7 sec (23.6-32.8); Prothrombin Time 10.4 sec (9.1-11.1)
[2023-05-14 16:26] LABS: Magnesium 2.3 mg/dL (1.8-2.4); Troponin I < 50 ng/L (<or=60)
[2023-05-14 16:27] LABS: Lipase 22 U/L (16-77)
[2023-05-14 16:29] LABS: ALT 45 U/L (16-63); AST 27 U/L (15-37); Albumin 4.4 g/dL (3.4-5.0); Alkaline Phosphatase 68 U/L (46-116); Anion Gap 5.9 mmol/L (3-11); BUN 13 mg/dL (7-18); Bilirubin, Total 1.3 mg/dL (0.2-1.0); CO2 30.1 mmol/L (21.0-32.0); Calcium 9.5 mg/dL (8.5-10.1); Chloride 103 mmol/L (98-107); Glucose 105 mg/dL (74-106); Potassium 3.8 mmol/L (3.5-5.1); Sodium 139 mmol/L (136-145); Total Protein 7.8 g/dL (6.4-8.2)
[2023-05-14] MEDS: Normal Saline - Diluent 50 ML VIAL IJ (16:34)
[2023-05-14] MEDS: Omnipaque 350 MG/ML 500 ML BTL-Imaging package 100 ML IJ (16:36)
--- NOTE | 2023-05-14 17:48 | NUR.NOTE ---
Referral faxed to PCP for epigastric pain for next week. Nursing Note:
== END 2023-05-14 18:11 | disposition home or self-care (01) ==
PROVIDERS: Emergency Provider Emergency Medicine; PCP Family Medicine
DX: R10.13 Epigastric pain (principal); R11.10 Vomiting, unspecified; R00.1 Bradycardia, unspecified; E78.5 Hyperlipidemia, unspecified; Z87.891 Personal history of nicotine dependence
CPT/HCPCS: 74177; 80053; 81025; 83690; 86850; 86900; 86901; 93005; 93308; 96361; 96374; 96375; 99285; 71260; 83735; 84484; 85025; 85610; 85730; 93010; 99284; J0131; J2405

== ENCOUNTER 2024-02-19 15:48 | Outpatient (REF) | payer BC, SELFPAY ==
[2024-02-19 15:17] LABS: HCT 42.3 % (40.0-50.0); HGB 14.4 g/dL (13.5-17.5); MCH 31.2 pg (27.0-33.0); MCV 92 fL (80-95); MPV 11.3 fL (8.0-11.0); Platelet Count 205 10^3/uL (130-400); RBC 4.62 10^6/uL (4.36-5.78); RDW 12.3 % (11.8-14.1); WBC 5.15 10^3/uL (4.4-10.8)
[2024-02-19 15:45] LABS: ALT 48 U/L (16-63); AST 32 U/L (15-37); Albumin 4.6 g/dL (3.4-5.0); Alkaline Phosphatase 81 U/L (46-116); Anion Gap 9.7 mmol/L (3-11); BUN 9 mg/dL (7-18); Bilirubin, Total 1.14 mg/dL (0.2-1.0); CO2 29.3 mmol/L (21.0-32.0); Calcium 9.6 mg/dL (8.5-10.1); Calculated LDL 116 mg/dL (<100); Chloride 102 mmol/L (98-107); Cholesterol 193 mg/dL (<200); Estimated GFR 86.16 (mL/min/1.73m2); Glucose 96 mg/dL (74-106); HDL Cholesterol 54 mg/dL (40-60); Potassium 4.4 mmol/L (3.5-5.1); Sodium 141 mmol/L (136-145); Total Protein 7.8 g/dL (6.4-8.2); Triglyceride 115 mg/dL (<150)
[2024-02-19 22:49] LABS: PSA, Screening 1.7 ng/mL (<=4.5)
== END 2024-02-19 15:49 | disposition home or self-care (01) ==
LOC: NCHCN 15:48
PROVIDERS: PCP Physician Assistant; Visit Provider Physician Assistant
DX: K22.70 Barrett's esophagus without dysplasia (principal); E78.5 Hyperlipidemia, unspecified; Z12.5 Encounter for screening for malignant neoplasm of prostate
CPT/HCPCS: 80053; 80061; 84153; 85027

== ENCOUNTER 2024-06-23 10:04 | Emergency (ER) | payer BC, SELFPAY ==
[2024-06-23 10:15] VITALS: BP 119/76; PULSE 69; RESP 15; TEMP 36.8; O2SAT 95
--- NOTE | 2024-06-23 10:15 | DI.CT_ITS ---
Exam(s) CT CHEST/ABD/PEL W EXAM: CT CHEST/ABD/PEL W CLINICAL HISTORY: Hx of barretts espohagus, Vomiting TECHNIQUE: Imaging Protocol: Axial computed tomography images with coronal and sagittal reformatted images were created and reviewed. Lung Computer Aided Detection (CAD) was utilized. CONTRAST MATERIAL: Intravenous: Omnipaque 350 contrast volume:100 mL Oral: No COMPARISON: CT ABD PELVIS WITH CONTRAST from 11/17/[address] CHEST/ABD/PEL W from 05/14/2023 FINDINGS: CHEST: Tracheobronchial tree: Patent where visualized. No evidence of bronchiectasis. Pulmonary parenchyma: No consolidation or dominant measurable mass. No architectural distortion. The nodule in the right lower lobe is unchanged since 2018. No follow-up is recommended. (Series 11, im age 89). No new pulmonary nodules are present. Visualized thyroid gland: Unremarkable. Mediastinum and Diana: No dominant adenopathy or fluid collection. There is mild thickening of the dis polina esophagus. This is non-specific and may represent an inflammatory or infectious esophagitis. Pleura: No effusion or pneumothorax. Heart: The heart is not dilated. Single-vessel coronary artery calcification is present. No pericard ial effusion. Pulmonary arteries: Due to the timing of the bolus, pulmonary artery opacification is suboptimal for evaluation of pulmonary emboli. No large central pulmonary embolism is present. Aorta: Thoracic aorta non-dilated. Atherosclerotic calcification is seen. No evidence of dissection. Lymph nodes: Within normal limits. Soft tissues: Unremarkable. Bones:Within normal limits for the patient's age. ABDOMEN: Liver: There is diffuse decreased attenuation of the liver suggesting fatty infiltration. No measura ble mass. Portal, Superior Mesenteric, and Splenic Veins: Unremarkable. Gallbladder and Biliary Tract: No radiodense calculus or dilation. Pancreas: Normal density, no abnormal calcifications or inflammatory process. Spleen: Normal. Adrenals: No masses seen. Kidneys: Normal size, contour and axis. No radiodense stones or obstructive uropathy. No masses seen. Abdominal Aorta: Abdominal portion non-dilated. Atherosclerotic calcification is present. Bowel: There is diverticulosis of the colon but no evidence of acute diverticulitis. Appendix is unr emarkable. No bowel wall thickening or obstruction. Peritoneal Cavity: No ascites, collection or mesenteric inflammatory response. No free air. Lymph Nodes: Within normal limits. Bones: Within normal limits for the patient's age. Soft Tissues: Unremarkable. PELVIS: Bladder: Symmetric distention, no gross wall thickening. Reproductive Organs: Unremarkable as visualized. Lymph Nodes: Within normal limits. Bones: Within normal limits. IMPRESSION: 1. No acute pulmonary process. 2. Mild thickening of the wall of the esophagus which may reflect an inflammatory or infectious esoph agitis. Please correlate clinically. 3. No acute abdominal or pelvic process. RADIATION DOSE DELIVERED: 507.76mGy.cm Total DLP DATA REPOSITORY: All CT scans at this facility are submitted to the National Radiology Data Registry (NRDR) Dose Index Registry (DIR) with the [employer] (ACR). RADIATION OPTIMIZATION: All CT scans at this facility use at least one of these dose optimization te chniques: automated exposure control; mA and/or kV adjustment per patient size (includes targeted exa ms where dose is matched to clinical indication); or iterative reconstruction.
--- NOTE | 2024-06-23 10:15 | RT.EKG_ITS ---
APPROVED REPORT Exam: Resting ECG Reason for Exam: diffuse chest pain Patient Location: E HR:58 bpm ECG Measurements Heart Rate 58 AXIS IA 165 P 4 QRSd 89 QRS 24 QT 416 T 36 QTc 409 Conclusion Sinus bradycardia, rate 58 No interval abnormalities No STEMI No priors available for comparison
--- NOTE | 2024-06-23 10:42 | ED.GENADUL_ITS ---
Discharge Plan Disposition Patient Disposition: Home Condition: Stable Discharge Details Clinical Impression: Esophagitis Primary Care Provider: Braeden Carroll ED Provider: Daisy Hernández Home Meds and New Rx's Prescriptions: Continued acetaminophen 325 mg Tablet 650 mg PO Q4H PRN PRNQty: 0 0RF nitroglycerin 0.4 mg tablet, sublingual 0.4 mg sublingual Q5-15M PRNQty: 10 0RF Rx Instructions: do not exceed 3 doses per episode pantoprazole [Protonix] 40 mg tablet,delayed release (DR/EC) 40 mg PO DAILY Qty: 90 4RF Discharge Instructions Instructions: Esophagitis Additional Instructions: Maalox or Mylanta or similar that you have at home as discussed. You do have some thickening noted to the esophagus no obvious perforation at this time. Please follow-up with general surgery call them within the next couple of days. You were also placed on care management list to assist you in getting a follow- up appointment. Liquid diet for the next 2 to 3 days. Advance as tolerated. Please return to the ER for trouble swallowing unable to swallow your food, vomiting, severe chest pain or concerns. Follow up with primary care provider in 3-5 days. Return to ED sooner if any worsening or concerns. Referrals: Braeden Carroll [Primary Care Provider] - 3 days Zeus Reeves MD [ [facility] STAFF PHYSICIAN] - 1 week HPI General Mode of arrival: ambulatory . Date/Time Provider Initiated Documentation: 06/23/24 10:05 . Limitations to Documentation: no limitations . Information obtained by: patient, RN notes reviewed and old records reviewed . HPI Narrative: 58-year-old male with history of Garcia's esophagus presents to the ER with concern that he may have torn his esophagus. He does endorse cocaine use this weekend reports having a bad taste in his mouth, unable to swallow spit however he does appear to be handling his secretions at this time. He does have some midepigastric pain. Painful to swallow. He reports he vomited yesterday. He was able to drink some tea yesterday morning. He denies any bloody stools however has not had a bowel movement since Saturday. He also reports that he has been thinking of some self-harm intermittent thoughts of SI. Does not have a plan at this time. He is requesting a manager of disaster recovery. On exam heart sounds are clear and brisk, no crepitus, no subcu emphysema palpated, he is slightly tender to the generalized abdomen. No distention. Related Data Home Medications ?Medication ?Instructions ?Recorded ?Confirmed acetaminophen 325 mg tablet 650 mg (2 x 325 mg) PO Q4H PRN PRN 01/18/22 06/23/24 #0 tabs nitroglycerin 0.4 mg sublingual 0.4 mg sublingual Q5-15M PRN #10 01/18/22 06/23/24 tablet tabs pantoprazole 40 mg tablet,delayed 40 mg PO DAILY #90 tabs 12/17/22 06/23/24 release (Protonix) Previous Rx's ?Medication ?Instructions ?Recorded acetaminophen 325 mg tablet 650 mg (2 x 325 mg) PO Q4H PRN PRN 01/18/22 #0 tabs nitroglycerin 0.4 mg sublingual 0.4 mg sublingual Q5-15M PRN #10 01/18/22 tablet tabs pantoprazole 40 mg tablet,delayed 40 mg PO DAILY #90 tabs 12/17/22 release (Protonix) Allergies Allergy/AdvReac Type Severity Reaction Status Date / Time Opioids - Morphine Analogues Allergy Severe Unknown Verified 06/23/24 10:14 lactose AdvReac Mild Unknown Verified 06/23/24 10:14 General Stated Complaint: GI Bleed URSULA: 3 Review of Systems All systems reviewed & are unremarkable except as noted in HPI and below ENT Ears, Nose, Mouth, and Throat: Reports as per HPI and Reports odynophagia Gastrointestinal Gastrointestinal: Reports as per HPI, Reports abdominal pain, Reports heartburn, Reports nausea, Reports odynophagia and Reports hematemesis Psychiatric Psychiatric: Reports suicidal ideation Exam Narrative Exam Narrative: Constitutional: Alert and oriented x3. Appears stated age. Normal body habitus. Head: Normocephalic, no trauma. Eyes: Pupils PERRL, Red reflex noted, EOM's intact. Eyelids symmetrical without lesions, discharge, or swelling. ENT: Bilateral TM's WNL, External ear normal to inspection, no mastoid TTP, swelling, or erythema, Nasal turbinates WNL, no nasal discharge. Normal dentition, Posterior pharynx WNL, no exudate. Chest: RRR, Normal S1, S2, distal pulses intact. Resp: Lungs clear to auscultation bilaterally, no wheezes, rales, or rhonchi. Abdomen: Soft, non-distended, Normoactive bowel sounds all 4 quads. Musculoskeletal: Normal gait, Moves all 4 extremities without difficulty. Skin: No suspicious rashes or lesions. Capillary refill less than 2 sec. Neurologic: Cranial nerves II-XII intact. Alert and oriented x 3. Motor: No deficits noted. Sensory: Intact bilaterally all 4 extremities. Hematologic/Lymphatic: No ecchymosis, no lymphadenopathy. Course Vital Signs Vital signs: Vital Signs Temperature 36.8 C 06/23/24 10:15 Pulse 69 06/23/24 10:15 Respiratory Rate 15 06/23/24 10:15 Blood Pressure 119/76 06/23/24 10:15 Pulse Oximetry 95 06/23/24 10:15 Temperature 36.8 C 06/23/24 10:15 Temperature Source Oral 06/23/24 10:15 Pulse 69 06/23/24 10:15 Respiratory Rate 15 06/23/24 10:15 Blood Pressure 119/76 06/23/24 10:15 Blood Pressure Position Sitting 06/23/24 10:15 Pulse Oximetry 95 06/23/24 10:15 Oxygen Delivery Method Room Air 06/23/24 10:15 Oxygen Flow Rate 0 06/23/24 10:15 Pain Level 4 06/23/24 10:15 Medical Decision Making EKG was reviewed by Dr. Good and myself ER attending, sinus bradycardia, no ischemic changes. Old EKG available for review. Workup ordered including CBC CMP PT lipase, salicylate alcohol, type and screen. CT chest abdomen pelvis. Will give 80 of Protonix and Zofran. motor coach driver called by staff combat information center officer. Will consider consulting with mental health after medically cleared. Labs are within normal limits, family is at bedside. Discussed CT results patient verbalized understanding. Patient is denying any suicidal ideations at this time. CT shows no evidence for perforation however there is a thickening of the esophagus wall. Patient able to tolerate soft foods at this time including pudding. I did urgently order some Maalox and lidocaine which patient declined. Patient continues to be hemodynamically stable, speaking in full sentences. Discussed follow-up with general surgery he verbalized understanding. I do recommend follow-up with general surgery for an outpatient endoscopy. This text was generated using Nuance dictation system, please disregard any oddities of phrase or misspellings. Imaging Data Radiologic Study: Imaging: CT Scan Radiologist's impression: IMPRESSION: 1. No acute pulmonary process. 2. Mild thickening of the wall of the esophagus which may reflect an inflammatory or infectious esophagitis. Please correlate clinically. 3. No acute abdominal or pelvic process. Lab Data Lab results reviewed: Yes I reviewed the patient's lab results. Labs: Laboratory Tests Range/Units 06/23/24 06/23/24 10:55 11:15 WBC (4.4-10.8) 10^3/uL 5.93 RBC (4.36-5.78) 10^6/uL 4.77 Hgb (13.5-17.5) g/dL 14.5 Hct (40.0-50.0) % 42.4 MCV (80-95) fL 89 MCH (27.0-33.0) pg 30.4 MCHC (32.0-36.0) % 34.2 RDW (11.8-14.1) % 11.9 Plt Count (130-400) 10^3/uL 202 MPV (8.0-11.0) fL 10.7 Immature Gran % % 0.2 Neutrophils % % 56.3 Lymphocytes % % 30.4 Monocytes % % 8.9 Eosinophils % % 3.4 Basophils % % 0.8 Nucleated RBC % (0.0-0.3) % 0.0 Absolute Neutrophils (1.2-6.7) 10^3/uL 3.34 Absolute Lymphocytes (1.2-3.4) 10^3/uL 1.80 Absolute Monocytes (0.1-0.8) 10^3/uL 0.53 Absolute Eosinophils (0.0-0.7) 10^3/uL 0.20 Absolute Basophils (0.0-0.2) 10^3/uL 0.05 PT (9.1-11.1) sec 10.4 INR (0.9-1.1) 1.0 Sodium (136-145) mmol/L 138 Potassium (3.5-5.1) mmol/L 3.6 Chloride (98-107) mmol/L 98 Carbon Dioxide (21.0-32.0) mmol/L 32.5 H Anion Gap (3-11) mmol/L 7.5 BUN (7-18) mg/dL 14 Creatinine (0.70-1.30) mg/dL 1.1 Est GFR (CKD-EPI 2020) (mL/min/1.73m2) 76.85 Glucose (74-106) mg/dL 104 Calcium (8.5-10.1) mg/dL 10.0 Magnesium (1.8-2.4) mg/dL 2.0 Total Bilirubin (0.2-1.0) mg/dL 2.72 H AST (15-37) U/L 41 H ALT (16-63) U/L 58 Alkaline Phosphatase (46-116) U/L 70 Total Protein (6.4-8.2) g/dL 8.1 Albumin (3.4-5.0) g/dL 4.6 Lipase (<78) U/L 24 Ethyl Alcohol (<10) mg/dL < 3.0 ABO/Rh O Positive Antibody Screen NEGATIVE Quality:SDOH Health Related Social Needs: No Data to Display PFSH All Active Problems (Updated 06/23/24 @ 13:43 by Daisy Hernández NP) Esophagitis (Acute) Left knee pain (Acute) Chondrocalcinosis of right knee (Acute) Arthritis of right knee (Acute) Shingles (Acute) Hyperlipidemia (Acute) NAFLD (nonalcoholic fatty liver disease) (Acute) Antral ulcer (Acute) Garcia's esophagus determined by biopsy (Acute) Hiatal hernia with GERD (Acute) Adenomatous polyps (Acute) Herniated disc (Acute) Atypical angina (Acute) Medical History Cubital tunnel syndrome on right (07/30/16) pt. denies Barretts esophagus (~07/2019) Colorectal polyps Diverticulosis Hiatal hernia Esophagitis Gastritis and duodenitis Chronic depression Pain, joint, shoulder, right Obesity Chronic anxiety GERD (gastroesophageal reflux disease) Cocaine abuse in remission Rectal bleeding Atypical chest pain Pt. states did cardiac testing stated came back normal Diverticulitis Chronic low back pain Alcohol dependence Surgical History Hx of shoulder surgery R ight side H/O esophagogastroduodenoscopy (~03/2023) biopsies taken S/P colonoscopy (~12/17/22) History of shoulder surgery Rotator cuff repair right shoulder. Social History Smoking/Tobacco Use Status: Former Tobacco Use Smoking risk assessment performed?: Yes Alcohol Intake: current Alcohol Intake frequency: 0-2 drinks per day Alcohol type: beer Details: Decreased his drinking 4 weeks ago from 3-4 beers a night to 1 beer once wk Drug use: Binges Substance use type: marijuana and crack/cocaine Details: marijuana 12/07/22 Pt. states cocaine 1 month ago per 04/08/23 Binged on Cocaine, stopped on 06/20/24 Household members: spouse Housing: house current occupation: self employed Do you feel safe at home: Yes Do you feel safe in your relationship?: Yes Additional Social history: Pt. denies his safety is in jeopardy, states has marital problems but does not want anybody involved. This RN explained help is available here if he chooses, pt. denies at this time.
[2024-06-23 11:04] LABS: Abs Immature Grans 0.01 10^3/uL (0.0-0.06); Absolute Basophil Count 0.05 10^3/uL (0.0-0.2); Absolute Monocyte Count 0.53 10^3/uL (0.1-0.8); Absolute Neutrophil Count 3.34 10^3/uL (1.2-6.7); Basophils % 0.8 %; Eosinophils % 3.4 %; HCT 42.4 % (40.0-50.0); HGB 14.5 g/dL (13.5-17.5); Immature Grans % 0.2 %; Lymphocytes % 30.4 %; MCH 30.4 pg (27.0-33.0); MCHC 34.2 % (32.0-36.0); MCV 89 fL (80-95); MPV 10.7 fL (8.0-11.0); Monocytes % 8.9 %; Neutrophils % 56.3 %; Platelet Count 202 10^3/uL (130-400); RBC 4.77 10^6/uL (4.36-5.78); RDW 11.9 % (11.8-14.1); RDW-SD 38.8 fL; WBC 5.93 10^3/uL (4.4-10.8)
[2024-06-23] MEDS: Ondansetron 4 MG/2 ML VIAL IVP (11:08)
[2024-06-23] MEDS: Pantoprazole 40 MG VIAL 80 MG IVP (11:09)
[2024-06-23] MEDS: Water,Injection,Sterile 10 ML VIAL (11:10)
[2024-06-23 11:22] LABS: ALT 58 U/L (16-63); AST 41 U/L (15-37); Albumin 4.6 g/dL (3.4-5.0); Alkaline Phosphatase 70 U/L (46-116); Anion Gap 7.5 mmol/L (3-11); BUN 14 mg/dL (7-18); Bilirubin, Total 2.72 mg/dL (0.2-1.0); CO2 32.5 mmol/L (21.0-32.0); CREATININE 1.1 mg/dL (0.70-1.30); Chloride 98 mmol/L (98-107); Estimated GFR 76.85 (mL/min/1.73m2); Glucose 104 mg/dL (74-106); Lipase 24 U/L (<78); Potassium 3.6 mmol/L (3.5-5.1); Sodium 138 mmol/L (136-145); Total Protein 8.1 g/dL (6.4-8.2)
[2024-06-23 11:27] LABS: Prothrombin Time 10.4 sec (9.1-11.1)
[2024-06-23 11:33] LABS: ETHANOL BLOOD < 3.0 mg/dL (<10)
[2024-06-23] MEDS: Normal Saline - Diluent 50 ML VIAL IJ (12:22)
[2024-06-23] MEDS: Omnipaque 350 MG/ML 100 ML BTL IJ (12:23)
[2024-06-23] MEDS: Lidocaine 2% Viscous 15 ML CUP PO (13:55)
[2024-06-23] MEDS: Mylanta Suspension 30 ML CUP PO (13:55)
[2024-06-23 14:10] VITALS: BP 138/68; PULSE 68; RESP 14; TEMP 36.6; O2SAT 99
== END 2024-06-23 14:18 | disposition home or self-care (01) ==
PROVIDERS: Emergency Provider Registered Nurse Emergency; PCP Physician Assistant
DX: K22.70 Barrett's esophagus without dysplasia (principal); R00.1 Bradycardia, unspecified; F14.90 Cocaine use, unspecified, uncomplicated; Z87.891 Personal history of nicotine dependence
CPT/HCPCS: 36415; 74177; 80053; 80307; 83690; 86850; 86900; 86901; 93005; 96374; 96375; 99285; 71260; 80320; 81003; 83735; 85025; 85610; 93010; 99284; J2405; J2470; J3490

== ENCOUNTER 2024-10-08 10:22 | Emergency (ER) | payer BC, SELFPAY ==
[2024-10-08] VITALS (7 sets, daily range): BP systolic 127–157; BP diastolic 72–102; PULSE 73–102; RESP 18–21; TEMP 36.8–37.1; O2SAT 95
--- NOTE | 2024-10-08 10:15 | RT.EKG_ITS ---
APPROVED REPORT Exam: Resting ECG Reason for Exam: Patient Location: E HR:92 bpm ECG Measurements Heart Rate 92 AXIS SD 165 P 73 QRSd 87 QRS 58 QT 343 T 50 QTc 425 Conclusion Sinus rhythm, rate 92 No interval abnormalities No STEMI No significant changes from priors
--- NOTE | 2024-10-08 10:45 | DI.RAD_ITS ---
Exam(s) XR CHEST 2V PA LATERAL EXAM: XR CHEST 2V PA LATERAL CLINICAL HISTORY: Productive cough TECHNIQUE: 2D digital imaging was performed of the chest. Two images were obtained. PA and lateral views were obtained. COMPARISON: CR XR CHEST 2V PA LATERAL from 10/24/2021 FINDINGS: MEDIASTINUM: Normal. HEART: Normal. PULMONARY VASCULATURE: Normal. LUNGS: Clear. PLEURAL SPACE: No pleural effusion or pneumothorax. BONE:Within normal limits for the patient's age. OTHER FINDINGS:Normal. IMPRESSION: No acute pulmonary findings. DATA REPOSITORY: RADIATION DOSE DELIVERED:
[2024-10-08 11:05] LABS: Abs Immature Grans 0.01 10^3/uL (0.0-0.06); Absolute Basophil Count 0.04 10^3/uL (0.0-0.2); Absolute Eosinophil Count 0.16 10^3/uL (0.0-0.7); Absolute Lymphocyte Count 1.34 10^3/uL (1.2-3.4); Absolute Monocyte Count 0.49 10^3/uL (0.1-0.8); Absolute Neutrophil Count 4.74 10^3/uL (1.2-6.7); Basophils % 0.6 %; Eosinophils % 2.4 %; HCT 41.2 % (40.0-50.0); HGB 14.4 g/dL (13.5-17.5); Immature Grans % 0.1 %; Lymphocytes % 19.8 %; MCH 30.3 pg (27.0-33.0); MCV 87 fL (80-95); MPV 10.5 fL (8.0-11.0); Monocytes % 7.2 %; Neutrophils % 69.9 %; Platelet Count 227 10^3/uL (130-400); RBC 4.75 10^6/uL (4.36-5.78); RDW-SD 38.4 fL; WBC 6.78 10^3/uL (4.4-10.8)
[2024-10-08 11:33] LABS: ALT 35 U/L (16-63); AST 29 U/L (15-37); Albumin 4.5 g/dL (3.4-5.0); Alkaline Phosphatase 77 U/L (46-116); Anion Gap 11.8 mmol/L (3-11); BUN 9 mg/dL (7-18); CO2 25.2 mmol/L (21.0-32.0); CREATININE 1.1 mg/dL (0.70-1.30); Chloride 100 mmol/L (98-107); Estimated GFR 76.37 (mL/min/1.73m2); Glucose 128 mg/dL (74-106); Magnesium 2.3 mg/dL (1.8-2.4); NT-proBNP 10 pg/mL (<300); Potassium 3.6 mmol/L (3.5-5.1); Sodium 137 mmol/L (136-145); Total Protein 8.6 g/dL (6.4-8.2); Troponin I 4 ng/L (<or=76)
--- NOTE | 2024-10-08 11:49 | ED.GENADUL_ITS ---
Discharge Plan Disposition Patient Disposition: Home Condition: Stable Discharge Details Clinical Impression: Bronchitis Primary Care Provider: Braeden Carroll ED Provider: Chelsie Good Home Meds and New Rx's Prescriptions: No Action pantoprazole [Protonix] 40 mg tablet,delayed release (DR/EC) 40 mg PO DAILY PRN Patient Comments: Pt states takes as he feel the need BMR acetaminophen 325 mg Tablet 650 mg PO Q4H PRN PRNQty: 0 0RF nitroglycerin 0.4 mg tablet, sublingual 0.4 mg sublingual Q5-15M PRNQty: 10 0RF Rx Instructions: do not exceed 3 doses per episode Discharge Instructions Instructions: Acute bronchitis Additional Instructions: You were seen in the emergency department today for evaluation of productive cough and fever, likely due to bronchitis. In our department had a full physical examination performed, had laboratory studies that were reassuring including cardiac enzymes, and had a normal EKG. You had an x-ray that did not show any large pneumonias, but given the duration of your symptoms it is re asonable to start you on a course of antibiotics. Please take all of this medication until it is gone, even if you start to feel better. Additionally you need to call your primary care provider to schedule follow-up appointment. Thank you for allowing us to be part of your care. Discharge Data Discharge Date/Time-TO BE ENTERED AT DEPARTURE: 10/08/24 12:12 HPI General Mode of arrival: ambulatory . Date/Time Provider Initiated Documentation: 10/08/24 10:23 . Limitations to Documentation: no limitations . Information obtained by: patient and old records reviewed . HPI Narrative: This is a 59-year-old male patient with a past medical history significant for fatty liver disease, Garcia's esophagus, and hyperlipidemia who is presenting for evaluation of productive cough and fever. The patient reports that since Saturday last week, approximately 5 days, he has had a cough productive of yellow sputum, no hemoptysis, and has had a fever to a Tmax of 103 at home over last weekend. Last fever was yesterday, has not taken any medications today for fever or pain. The patient denies a history of respiratory problems such as asthma or COPD. He states that he has a history of nonspecific heart problems after former cocaine use. He reports that he feels some discomfort and tightness in his chest while coughing. Related Data Home Medications ?Medication ?Instructions ?Recorded ?Confirmed acetaminophen 325 mg tablet 650 mg (2 x 325 mg) PO Q4H PRN PRN 01/18/22 10/08/24 #0 tabs nitroglycerin 0.4 mg sublingual 0.4 mg sublingual Q5-15M PRN #10 01/18/22 10/08/24 tablet tabs pantoprazole 40 mg tablet,delayed 40 mg PO DAILY PRN 07/02/24 10/08/24 release (Protonix) Previous Rx's ?Medication ?Instructions ?Recorded acetaminophen 325 mg tablet 650 mg (2 x 325 mg) PO Q4H PRN PRN 01/18/22 #0 tabs nitroglycerin 0.4 mg sublingual 0.4 mg sublingual Q5-15M PRN #10 01/18/22 tablet tabs Allergies Allergy/AdvReac Type Severity Reaction Status Date / Time Opioids - Morphine Analogues Allergy Severe Unknown Verified 10/08/24 10:28 lactose AdvReac Mild Unknown Verified 10/08/24 10:28 General Stated Complaint: RespSymp URSULA: 3 Exam Narrative Exam Narrative: Gen: Awake and alert, in no apparent distress HEENT: Non-icteric sclera Neck: Supple Lungs: No apparent respiratory distress, normal respiratory effort. Junky sounding cough appreciated during this provider's examination, with yellow sputum produced. No wheezes, rhonchi, rales CV: Appears well perfused, heart with regular rate and rhythm during this provider's examination, no murmurs auscultated, strong distal pulses Abdomen: Non-distended MSK: Moves 4 extremities without apparent limitation in ROM. No peripheral edema or unilateral calf swelling or tenderness Skin: Visualized skin without rashes, cyanosis. Neuro: Normal Gait, no obvious focal deficits or facial asymmetry. Speaks in full, clear sentences. Psych: Appropriate for situation. Course Vital Signs Vital signs: Vital Signs Temperature 37.1 C 10/08/24 10:25 Pulse 102 H 10/08/24 10:25 Respiratory Rate 20 10/08/24 10:25 Blood Pressure 157/102 H 10/08/24 10:25 Pulse Oximetry 95 10/08/24 10:25 Temperature 37.1 C 10/08/24 10:32 Temperature Source Oral 10/08/24 10:32 Pulse 75 10/08/24 11:38 Pulse Rhythm Regular 10/08/24 11:38 Respiratory Rate 18 10/08/24 11:38 Respiratory Effort Short of Breath 10/08/24 11:38 Respiratory Depth Normal 10/08/24 11:38 Respiratory Pattern Normal 10/08/24 11:38 Blood Pressure 127/72 10/08/24 11:38 Blood Pressure Mean 90 10/08/24 11:38 Blood Pressure Position Sitting 10/08/24 10:32 Pulse Oximetry 95 10/08/24 11:38 Oxygen Delivery Method Room Air 10/08/24 11:38 Oxygen Flow Rate 0 10/08/24 11:38 Pain Level 10 10/08/24 10:32 Lab/Test Results Lab/Test Results: Laboratory Tests Range/Units 10/08/24 10:55 WBC (4.4-10.8) 10^3/uL 6.78 RBC (4.36-5.78) 10^6/uL 4.75 Hgb (13.5-17.5) g/dL 14.4 Hct (40.0-50.0) % 41.2 MCV (80-95) fL 87 MCH (27.0-33.0) pg 30.3 MCHC (32.0-36.0) % 35.0 RDW (11.8-14.1) % 12.0 Plt Count (130-400) 10^3/uL 227 MPV (8.0-11.0) fL 10.5 Immature Gran % % 0.1 Neutrophils % % 69.9 Lymphocytes % % 19.8 Monocytes % % 7.2 Eosinophils % % 2.4 Basophils % % 0.6 Nucleated RBC % (0.0-0.3) % 0.0 Absolute Neutrophils (1.2-6.7) 10^3/uL 4.74 Absolute Lymphocytes (1.2-3.4) 10^3/uL 1.34 Absolute Monocytes (0.1-0.8) 10^3/uL 0.49 Absolute Eosinophils (0.0-0.7) 10^3/uL 0.16 Absolute Basophils (0.0-0.2) 10^3/uL 0.04 Sodium (136-145) mmol/L 137 Potassium (3.5-5.1) mmol/L 3.6 Chloride (98-107) mmol/L 100 Carbon Dioxide (21.0-32.0) mmol/L 25.2 Anion Gap (3-11) mmol/L 11.8 H BUN (7-18) mg/dL 9 Creatinine (0.70-1.30) mg/dL 1.1 Est GFR (CKD-EPI 2020) (mL/min/1.73m2) 76.37 Glucose (74-106) mg/dL 128 H Calcium (8.5-10.1) mg/dL 10.0 Magnesium (1.8-2.4) mg/dL 2.3 Total Bilirubin (0.2-1.0) mg/dL 2.0 H AST (15-37) U/L 29 ALT (16-63) U/L 35 Alkaline Phosphatase (46-116) U/L 77 Troponin I (<or=76) ng/L 4 NT-Pro-B Natriuret Pep (<300) pg/mL 10 Total Protein (6.4-8.2) g/dL 8.6 H Albumin (3.4-5.0) g/dL 4.5 Medical Decision Making This is a 59-year-old male patient presenting for evaluation of shortness of breath, fever, and productive cough. My differential includes but is not limited to viral URI, pneumonia, bronchitis. I did consider cardiac a bnormalities including heart failure and exacerbation, ACS. The patient has no DVT symptoms, and the productive nature of his cough without hemoptysis nor history of thromboembolic disease makes me less concerned for PE. No wheezing to suggest reactive airway disease exacerbation. We obtained an EKG which I reviewed, shows a normal sinus rhythm without ischemia, interval abnormality, or ectopy. Will obtain a chest x-ray, and laboratory studies to include CBC, CMP, magnesium, troponin, and BNP. -Chest x-ray reviewed by myself, showing no large focal consolidations to suggest pneumonia. I independently interpreted the laboratory studies, which show no significant leukocytosis, anemia, or thrombocytopenia. The chemistry panel is without evidence of electrolyte abnormality, kidney dysfunction, or liver injury. Troponin is negative, BNP is very low at 10. I am reassured by the workup and it most suspicious for bronchitis as the cause of the patient's symptoms. Given the duration of symptoms and his ongoing significant symptomatic nature, I do feel that it is reasonable to proceed with a course of antibiotics, and a 5-day course of azithromycin was provided. At this time, the patient has had a full medical evaluation and is safe for discharge to home. They are hemodynamically stable, ambulatory, and tolerating PO. They are understanding of the follow-up plan and return precautions. They left our facility without incident. Chelsie Good MD Medical Records Medical records reviewed: Yes I reviewed the patient's medical records. Lab Data Lab results reviewed: Yes I reviewed the patient's lab results. Quality:SDOH Health Related Social Needs: No Data to Display PFSH All Active Problems (Updated 10/08/24 @ 12:15 by Chelsie Good MD) Bronchitis (Acute) Esophagitis (Acute) Left knee pain (Acute) Chondrocalcinosis of right knee (Acute) Arthritis of right knee (Acute) Shingles (Acute) Hyperlipidemia (Acute) NAFLD (nonalcoholic fatty liver disease) (Acute) Antral ulcer (Acute) Garcia's esophagus determined by biopsy (Acute) Hiatal hernia with GERD (Acute) Adenomatous polyps (Acute) Herniated disc (Acute) Atypical angina (Acute) Medical History Cubital tunnel syndrome on right (07/30/16) pt. denies Barretts esophagus (~07/2019) Colorectal polyps Diverticulosis Hiatal hernia Esophagitis Gastritis and duodenitis Chronic depression Pain, joint, shoulder, right Obesity Chronic anxiety GERD (gastroesophageal reflux disease) Cocaine abuse in remission Rectal bleeding Atypical chest pain Pt. states did cardiac testing stated came back normal Diverticulitis Chronic low back pain Alcohol dependence Surgical History Hx of shoulder surgery R ight side H/O esophagogastroduodenoscopy (~03/2023) biopsies taken S/P colonoscopy (~12/17/22) History of shoulder surgery Rotator cuff repair right shoulder. Social History Smoking/Tobacco Use Status: Former Tobacco Use Smoking risk assessment performed?: Yes Alcohol Intake: current Alcohol Intake frequency: 0-2 drinks per day Alcohol type: beer Details: Decreased his drinking 4 weeks ago from 3-4 beers a night to 1 beer once wk Drug use: Binges Substance use type: marijuana and crack/cocaine Details: marijuana 12/07/22 Pt. states cocaine 1 month ago per 04/08/23 Binged on Cocaine, stopped on 06/20/24 Household members: spouse Housing: house current occupation: self employed Do you feel safe at home: Yes Do you feel safe in your relationship?: Yes Additional Social history: Pt. denies his safety is in jeopardy, states has marital problems but does not want anybody involved. This RN explained help is a vailable here if he chooses, pt. denies at this time. PAWSS Have you Been Recently Intoxicated or Drunk Within the Last 30 days?: No Have you Ever Experienced Previous Episodes of Alcohol Withdrawal?: No Have you ever Experienced Withdrawal Seizures?: No Have you ever Experienced Delirium Tremens(DT)s?: No Have you ever undergone Alcohol Rehabilitation Treatment (i.e, inpt ot outpatient treatment programs)?: No Have you ever Experienced Blackouts?: No Have you ever Combined Alcohol with other Downers within the last 90 days?: No Have you ever Combined Alcohol with any other Substance of Abuse during the last 90 days?: No Positive Blood Alcohol level on Presentation? [PCS.BAL]: No Evidence of Increased Autonomic Activity (i.e. HR>120, tremor, sweating, agitation, nausea)?: No Result: 0
[2024-10-08] MEDS: Azithromycin 250 MG TAB 1000 MG PO (12:06)
[2024-10-08] MEDS: Azithromycin 250 MG TAB 500 MG PO (12:06)
[2024-10-08 12:35] LABS: Troponin I 4 ng/L (<or=76)
== END 2024-10-08 12:12 | disposition home or self-care (01) ==
PROVIDERS: Emergency Provider Emergency Medicine; PCP Physician Assistant
DX: J40 Bronchitis, not specified as acute or chronic (principal); Z87.891 Personal history of nicotine dependence
CPT/HCPCS: 80053; 93005; 99284; 71046; 83735; 83880; 84484; 85025; 93010